=== PATIENT | female | born 1975 | race Caucasian/White ===

== ENCOUNTER 2019-07-19 00:58 | Inpatient (IN) | payer MEDICAID ==
[~2019-07-19] VITALS: Ht 152.4 cm; Wt 70.2 kg
--- NOTE | 2019-07-19 01:31 | NUR ---
report to Harish SALCIDO
--- NOTE | 2019-07-19 01:35 | NUR ---
Dr Presley aware was transported on heparin gtt, will place order to continue
[2019-07-19] MEDS ORDERED: nitroGLYCERIN-Tridil 50MG/D5W 250 ML IV PRN (01:40)
[2019-07-19] MEDS ORDERED: proCHLORperazine 10 MG/2 ml inj IV ONE (01:45)
[2019-07-19 02:39] LABS: BASOPHILS % (AUTO) 0.4 % (0-1); EOSINOPHILS # (AUTO) 0.3 X10'3 (0-0.9); EOSINOPHILS % (AUTO) 2.6 % (0-6); HEMOGLOBIN 8.8 g/dl (12.0-16.0); LYMPHOCYTES # (AUTO) 1.2 X10'3 (1.1-4.8); MEAN CORPUSCULAR HGB CONC 31.4 g/dL (33.0-36.5); MEAN CORPUSCULAR VOLUME 79.5 FL (78-98); MEAN PLATELET VOLUME 9.2 FL (7.4-10.4); MONOCYTES # (AUTO) 0.6 X10'3 (0-0.9); MONOCYTES % (AUTO) 5.2 % (2-12); NEUTROPHILS % (AUTO) 81.8 % (42-75); PLATELET COUNT 240 X10'3 (140-440); RED BLOOD COUNT 3.53 X10'6 (4.20-5.60); RED CELL DISTRIBUTION WIDTH 15.7 % (11.5-14.5); WHITE BLOOD COUNT 12.2 X10'3 (4.5-11.0)
[2019-07-19 02:48] LABS: ALANINE AMINOTRANSFERASE 20 U/L (12-78); ALBUMIN 2.2 G/DL (3.4-5.0); ALBUMIN/GLOBULIN RATIO 0.6 (1.1-1.5); ALKALINE PHOSPHATASE 76 IU/L (46-116); ANION GAP 9 (8-16); ASPARTATE AMINO TRANSFERASE 20 U/L (10-37); BILIRUBIN,TOTAL 0.3 MG/DL (0.1-1.0); BLOOD UREA NITROGEN 40 MG/DL (7-18); BUN/CREATININE RATIO 10.5 (6.6-38.0); CALCIUM 8.1 MG/DL (8.5-10.1); CHLORIDE 112 MMOL/L (99-107); GLUCOSE 202 MG/DL (70-104); SODIUM 143 MMOL/L (135-145); TOTAL CARBON DIOXIDE 21.8 MMOL/L (24-32); TOTAL PROTEIN 5.8 G/DL (6.4-8.2); eGFR 13 ML/MIN
[2019-07-19 02:51] LABS: PARTIAL THROMBOPLASTIN TIME 34 SECONDS (22-32)
[2019-07-19 02:55] LABS: MAGNESIUM 1.9 MG/DL (1.5-2.4)
[2019-07-19] MEDS ORDERED: acetaminophen 325mg tablet PO ONE (04:05)
[2019-07-19] MEDS: heparin 25,000 UNIT/250ml bag 250 ML IV SCH (04:27)
[2019-07-19] MEDS ORDERED: amLODIPine 5mg tablet PO ONE ×2 (05:25→11:30)
[2019-07-19] MEDS ORDERED: ESCI5TAB12 PO (06:13)
[2019-07-19] MEDS ORDERED: METO50TA17 PO (06:13)
[2019-07-19] MEDS ORDERED: DOCU-148 PO (06:13)
[2019-07-19] MEDS ORDERED: OXYC-580 PO (06:13)
[2019-07-19] MEDS ORDERED: INSU100V43 SQ (06:13)
[2019-07-19] MEDS ORDERED: ONDA4TAB6 PO (06:13)
[2019-07-19] MEDS ORDERED: ASPI-920 PO (06:13)
[2019-07-19] MEDS ORDERED: INSU100I31 SQ (06:13)
--- NOTE | 2019-07-19 06:15 | NUR ---
Hospitalist at bedside. MD made aware Pt does not seem to be responding well to Nitro drip as SBP not staying below 200 and approaching max dose. MD ordered to continue drip and continue to titrate.
[2019-07-19] MEDS ORDERED: dextrose ORAL solution 15 GM/59 ML bottle PO PRN (07:10)
[2019-07-19] MEDS ORDERED: azithromycin/NS 500mg/250ml 250 ML IV ONE ×2 (07:10→10:45)
[2019-07-19] MEDS ORDERED: MESSAGE TO PHARMACY PO ONE (07:10)
[2019-07-19] MEDS ORDERED: glucagon, human recombinant 1mg kit SUBCUT PRN (07:10)
[2019-07-19] MEDS ORDERED: dextrose 50%-water 50ml dispensing syringe IV PRN ×2 (07:10)
[2019-07-19] MEDS ORDERED: ipratropium/albuterol 3ml nebule NEB PRN ×2 (07:15)
[2019-07-19] MEDS ORDERED: magnesium Cl slow-release 64mg tablet PO PRN (07:15)
[2019-07-19] MEDS ORDERED: magnesium 2GM in 50ml NS 50 ML IV PRN (07:15)
[2019-07-19] MEDS ORDERED: mag hydrox/Alum hydrox/simeth 30ml oral suspension PO PRN (07:15)
[2019-07-19] MEDS ORDERED: potassium Cl 20 mEq SR tablet PO PRN ×2 (07:15)
[2019-07-19] MEDS ORDERED: magnesium 4gm in 100ml NS 100 ML IV PRN (07:15)
[2019-07-19] MEDS ORDERED: potassium CL 10mEq/100ml bag 100 ML IV PRN ×2 (07:15)
[2019-07-19 07:38] LABS: HEMOGLOBIN A1C 6.9 % (4.5-6.2)
--- NOTE | 2019-07-19 07:38 | NUR ---
GROCERY DELIVERER REQUEST THAT I REVIEW CHART FOR POSSIBLE ADMISSION TO ACCE.
[2019-07-19] MEDS ORDERED: heparin, porcine 5000 units/ml vial SQ SCH (08:00)
[2019-07-19] MEDS: CefTRIAXone/D5W-Rocephin 1gm 50 ML IV SCH (09:46)
[2019-07-19] MEDS: normal saline 1000ml 1,000 ML IV SCH (09:46)
[2019-07-19] MEDS: K and/or MAG REPLACEMENT MC SCH ×2 (09:49→20:00)
[2019-07-19] MEDS: methylPREDNISolone sod succ/PF 40mg inj. IV SCH ×2 (09:49→20:55)
--- NOTE | 2019-07-19 10:43 | NUR ---
promotional table spacer PAGER ID: [phone] MESSAGE: Med reconciliation done, please review. Pt in for CHF exacerbation, BNP>30k, on nitro trip, maxed at 30 mcg/min (max for ACCE unit), HTN not controlled, 188/101, 102. Please give another IV drip, lasix or diltizem? xSharon [phone]
[2019-07-19 11:00] VITALS: BP 187/103
--- NOTE | 2019-07-19 12:00 | NUR ---
Dr. Felton visited pt by bedside, informed RN to titrate down Nitro drip with hydralyzine IV push PRN. Heparin drip has been on for 15 hours, it will most likely be discontinued on 07/20.
--- NOTE | 2019-07-19 12:00 | NUR ---
RN withholding insulin, pt c/o NV, not eating.
[2019-07-19 15:00] VITALS: BP 167/91
[2019-07-19] MEDS: hydrALAZINE 20mg/ml inj. IV PRN ×2 (17:00→21:43)
[2019-07-19 18:00] VITALS: BP 149/78
--- NOTE | 2019-07-19 18:00 | NUR ---
Problems reprioritized. Patient report given, questions answered & plan of care reviewed with OMARI Phillips.
--- NOTE | 2019-07-19 18:00 | NUR ---
Patient in room MED 310. I have received report from Cristina SALICDO and had the opportunity to ask questions and assume patient care.
[2019-07-19] MEDS: heparin 10,000 units/1 ML INJ IV PRN (18:48)
[2019-07-19] MEDS: insulin Lispro (HumaLOG) vial - multi-dose SQ SCH (19:12)
[2019-07-19] MEDS: famotidine 10mg tablet PO SCH (20:55)
[2019-07-19] MEDS ORDERED: famotidine 20mg tablet PO SCH (21:00)
[2019-07-19] MEDS: insulin glargine (Lantus) pen - multi-dose SQ SCH (21:17)
[2019-07-19] MEDS: docusate sod 100mg capsule PO SCH (21:19)
[2019-07-19 22:00] VITALS: BP 146/75
[2019-07-20 02:00] VITALS: BP 157/81
[2019-07-20 02:18] LABS: ALBUMIN 2.1 G/DL (3.4-5.0); ANION GAP 8 (8-16); BLOOD UREA NITROGEN 43 MG/DL (7-18); BUN/CREATININE RATIO 10.5 (6.6-38.0); CHLORIDE 108 MMOL/L (99-107); CREATININE 4.09 MG/DL (0.40-0.90); GLUCOSE 175 MG/DL (70-104); MAGNESIUM 1.8 MG/DL (1.5-2.4); POTASSIUM 5.1 MMOL/L (3.5-5.1); SODIUM 137 MMOL/L (135-145); TOTAL CARBON DIOXIDE 20.7 MMOL/L (24-32); eGFR 12 ML/MIN
[2019-07-20 02:23] LABS: BASOPHILS % (AUTO) 0.4 % (0-1); EOSINOPHILS % (AUTO) 0.1 % (0-6); HEMATOCRIT 28.1 % (35.0-45.0); HEMOGLOBIN 9.1 g/dl (12.0-16.0); LYMPHOCYTES # (AUTO) 0.8 X10'3 (1.1-4.8); LYMPHOCYTES % (AUTO) 10.2 % (21-51); MEAN CORPUSCULAR HEMOGLOBIN 25.6 PG (27.0-31.0); MEAN CORPUSCULAR HGB CONC 32.3 g/dL (33.0-36.5); MEAN CORPUSCULAR VOLUME 79.2 FL (78-98); MONOCYTES # (AUTO) 0.2 X10'3 (0-0.9); NEUTROPHILS # (AUTO) 7.1 X10'3 (1.8-7.7); NEUTROPHILS % (AUTO) 87.3 % (42-75); PLATELET COUNT 196 X10'3 (140-440); RED BLOOD COUNT 3.55 X10'6 (4.20-5.60); RED CELL DISTRIBUTION WIDTH 16.3 % (11.5-14.5); WHITE BLOOD COUNT 8.2 X10'3 (4.5-11.0)
[2019-07-20] MEDS: heparin 10,000 units/1 ML INJ IV PRN (02:55)
[2019-07-20] MEDS: heparin 25,000 UNIT/250ml bag 250 ML IV SCH ×2 (02:58→07:54)
[2019-07-20 06:00] VITALS: BP 158/81
--- NOTE | 2019-07-20 06:00 | NUR ---
Problems reprioritized. Patient report given, questions answered & plan of care reviewed with Danay.
[2019-07-20] MEDS ORDERED: FLU VACC QS2019-20 36MOS UP/PF 60 MCG/0.5 ML SYRINGE IMVAC ONE (06:10)
[2019-07-20] MEDS ORDERED: pneumococcal 23-VAL P-sac vacc 25 mcg/0.5ml vial IMVAC ONE (06:10)
[2019-07-20] MEDS: lactobacillus rhamnosus 10,000 MMU CELLS/CAPSULE PO SCH (07:56)
[2019-07-20] MEDS: ESCITALOPRAM OXALATE 5 MG TABLET PO SCH (07:56)
[2019-07-20] MEDS: methylPREDNISolone sod succ/PF 40mg inj. IV SCH (07:57)
[2019-07-20] MEDS: amLODIPine 5mg tablet PO SCH (07:57)
[2019-07-20] MEDS: CefTRIAXone/D5W-Rocephin 1gm 50 ML IV SCH (07:57)
[2019-07-20] MEDS: aspirin 81mg tab.chew PO SCH (07:58)
[2019-07-20] MEDS ORDERED: metoprolol tartrate 50mg tablet PO SCH (08:00)
[2019-07-20] MEDS: K and/or MAG REPLACEMENT MC SCH ×2 (08:00→20:00)
[2019-07-20] MEDS: insulin Lispro (HumaLOG) vial - multi-dose SQ SCH ×3 (08:44→18:25)
[2019-07-20] MEDS: ondansetron/PF 4mg/2ml inj IV PRN ×2 (10:11→23:50)
[2019-07-20 11:00] VITALS: BP 161/92
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
--- NOTE | 2019-07-20 11:20 | NUR ---
DR. BRUMFIELD GIVES VERBAL ORDER TO DC HEPARIN DRIP, DC'D AT THIS TIME
[2019-07-20] MEDS: LORazepam 2 mg/ml vial IV PRN (11:31)
[2019-07-20 15:00] VITALS: BP 146/75
[2019-07-20 18:00] VITALS: BP 140/73
--- NOTE | 2019-07-20 18:00 | NUR ---
Patient in room MED 310. I have received report from NICK SALCIDO and had the opportunity to ask questions and assume patient care.
[2019-07-20] MEDS: docusate sod 100mg capsule PO SCH (21:21)
[2019-07-20] MEDS: famotidine 10mg tablet PO SCH (21:21)
[2019-07-20] MEDS: metoprolol tartrate 50mg tablet PO SCH (21:22)
[2019-07-20] MEDS: insulin glargine (Lantus) pen - multi-dose SQ SCH (21:32)
[2019-07-20 22:00] VITALS: BP 151/79
[2019-07-21 02:00] VITALS: BP 148/82
--- NOTE | 2019-07-21 06:00 | NUR ---
Problems reprioritized. Patient report given, questions answered & plan of care reviewed with Daiana SALCIDO.
[2019-07-21 06:03] LABS: BASOPHILS % (AUTO) 0.3 % (0-1); EOSINOPHILS # (AUTO) 0.1 X10'3 (0-0.9); HEMATOCRIT 27.7 % (35.0-45.0); HEMOGLOBIN 8.8 g/dl (12.0-16.0); LYMPHOCYTES # (AUTO) 2.9 X10'3 (1.1-4.8); LYMPHOCYTES % (AUTO) 25.5 % (21-51); MEAN CORPUSCULAR HEMOGLOBIN 25.3 PG (27.0-31.0); MEAN CORPUSCULAR VOLUME 79.2 FL (78-98); MEAN PLATELET VOLUME 9.3 FL (7.4-10.4); NEUTROPHILS # (AUTO) 7.3 X10'3 (1.8-7.7); NEUTROPHILS % (AUTO) 64.2 % (42-75); PLATELET COUNT 270 X10'3 (140-440); RED BLOOD COUNT 3.49 X10'6 (4.20-5.60); RED CELL DISTRIBUTION WIDTH 16.4 % (11.5-14.5); WHITE BLOOD COUNT 11.4 X10'3 (4.5-11.0)
[2019-07-21 06:09] LABS: ANION GAP 8 (8-16); BLOOD UREA NITROGEN 56 MG/DL (7-18); BUN/CREATININE RATIO 12.4 (6.6-38.0); CALCIUM 8.2 MG/DL (8.5-10.1); CHLORIDE 109 MMOL/L (99-107); CREATININE 4.53 MG/DL (0.40-0.90); GLUCOSE 76 MG/DL (70-104); MAGNESIUM 2.1 MG/DL (1.5-2.4); POTASSIUM 4.8 MMOL/L (3.5-5.1); SODIUM 138 MMOL/L (135-145); TOTAL CARBON DIOXIDE 20.8 MMOL/L (24-32); eGFR 11 ML/MIN
--- NOTE | 2019-07-21 06:30 | NUR ---
Patient in room MED 310. I have received report from Jacqueline SALCIDO and had the opportunity to ask questions and assume patient care.
[2019-07-21 07:00] VITALS: BP 148/94
[2019-07-21] MEDS: normal saline 1000ml 1,000 ML IV SCH (07:11)
[2019-07-21] MEDS: ondansetron/PF 4mg/2ml inj IV PRN ×3 (07:28→22:21)
[2019-07-21] MEDS: acetaminophen 325mg tablet PO PRN ×2 (07:28→14:34)
[2019-07-21] MEDS: CefTRIAXone/D5W-Rocephin 1gm 50 ML IV SCH (07:29)
[2019-07-21] MEDS: LORazepam 2 mg/ml vial IV PRN ×2 (07:54→14:48)
[2019-07-21] MEDS: K and/or MAG REPLACEMENT MC SCH ×2 (08:00→20:00)
[2019-07-21] MEDS: aspirin 81mg tab.chew PO SCH (08:04)
--- NOTE | 2019-07-21 08:16 | NUR ---
Pt BG checked and her BG wqas 56. She is A&O x 4. She refused glucose shot or IV glucose at this time. She requested OJ and Stated she wqould eat breakfast. She states she had not eaten much last night due to family tragedy.
[2019-07-21] MEDS: dextrose ORAL solution 15 GM/59 ML bottle PO PRN ×3 (09:12→09:45)
[2019-07-21] MEDS: ESCITALOPRAM OXALATE 5 MG TABLET PO SCH (09:17)
[2019-07-21] MEDS: predniSONE 20 mg tablet PO SCH (09:18)
[2019-07-21] MEDS: lactobacillus rhamnosus 10,000 MMU CELLS/CAPSULE PO SCH (09:18)
[2019-07-21] MEDS: amLODIPine 5mg tablet PO SCH (09:18)
[2019-07-21] MEDS: metoprolol tartrate 50mg tablet PO SCH ×2 (09:24→21:27)
[2019-07-21] MEDS: hydrALAZINE 20mg/ml inj. IV PRN (09:46)
[2019-07-21] MEDS ORDERED: FLU VACC QS2019-20 36MOS UP/PF 60 MCG/0.5 ML SYRINGE IMVAC ONE (10:00)
[2019-07-21] MEDS ORDERED: pneumococcal 23-VAL P-sac vacc 25 mcg/0.5ml vial IMVAC ONE (10:00)
--- NOTE | 2019-07-21 10:30 | NUR ---
After pt was rechecked and she did not eat but a couple bites of breakfast and drank 3/4 container OJ BG was 47 she agreed to take the glucose shots. After 3 glucose shots her BG was 103. She had refused the glucose shot earlier.
[2019-07-21 11:00] VITALS: BP 145/75
[2019-07-21] MEDS: guaiFENesin ER 600mg tablet PO SCH ×2 (12:07→21:27)
[2019-07-21] MEDS: insulin Lispro (HumaLOG) vial - multi-dose SQ SCH (13:36)
[2019-07-21 15:00] VITALS: BP 139/77
[2019-07-21 18:00] VITALS: BP 137/68
[2019-07-21] MEDS: docusate sod 100mg capsule PO SCH (21:26)
[2019-07-21] MEDS: insulin glargine (Lantus) pen - multi-dose SQ SCH (21:26)
[2019-07-21] MEDS: famotidine 10mg tablet PO SCH (21:27)
[2019-07-21 22:00] VITALS: BP 146/76
[2019-07-22 02:00] VITALS: BP 152/79
[2019-07-22 02:57] LABS: BASOPHILS % (AUTO) 0.2 % (0-1); EOSINOPHILS % (AUTO) 0 % (0-6); HEMATOCRIT 29.6 % (35.0-45.0); HEMOGLOBIN 9.2 g/dl (12.0-16.0); LYMPHOCYTES # (AUTO) 1.4 X10'3 (1.1-4.8); LYMPHOCYTES % (AUTO) 15.5 % (21-51); MEAN CORPUSCULAR HEMOGLOBIN 25.3 PG (27.0-31.0); MEAN CORPUSCULAR HGB CONC 31.2 g/dL (33.0-36.5); MEAN PLATELET VOLUME 9.3 FL (7.4-10.4); MONOCYTES # (AUTO) 0.5 X10'3 (0-0.9); MONOCYTES % (AUTO) 5.5 % (2-12); NEUTROPHILS # (AUTO) 7.2 X10'3 (1.8-7.7); NEUTROPHILS % (AUTO) 78.8 % (42-75); PLATELET COUNT 241 X10'3 (140-440); RED BLOOD COUNT 3.65 X10'6 (4.20-5.60); RED CELL DISTRIBUTION WIDTH 16.5 % (11.5-14.5); WHITE BLOOD COUNT 9.1 X10'3 (4.5-11.0)
[2019-07-22 03:08] LABS: ALBUMIN 1.7 G/DL (3.4-5.0); ANION GAP 8 (8-16); BLOOD UREA NITROGEN 61 MG/DL (7-18); BUN/CREATININE RATIO 12.9 (6.6-38.0); CALCIUM 7.6 MG/DL (8.5-10.1); CHLORIDE 108 MMOL/L (99-107); CREATININE 4.72 MG/DL (0.40-0.90); GLUCOSE 205 MG/DL (70-104); POTASSIUM 5.2 MMOL/L (3.5-5.1); SODIUM 134 MMOL/L (135-145); TOTAL CARBON DIOXIDE 18.4 MMOL/L (24-32); eGFR 10 ML/MIN
[2019-07-22 06:00] VITALS: BP 150/81
--- NOTE | 2019-07-22 06:16 | NUR ---
Problems reprioritized. Patient report given to Yulia, questions answered & plan of care reviewed with .
--- NOTE | 2019-07-22 06:23 | NUR ---
I have received report from Elaine SALCIDO and had the opportunity to ask questions and assume patient care.
[2019-07-22] MEDS: K and/or MAG REPLACEMENT MC SCH ×2 (08:00→20:00)
[2019-07-22] MEDS: ESCITALOPRAM OXALATE 5 MG TABLET PO SCH (08:21)
[2019-07-22] MEDS: lactobacillus rhamnosus 10,000 MMU CELLS/CAPSULE PO SCH (08:21)
[2019-07-22] MEDS: predniSONE 20 mg tablet PO SCH (08:21)
[2019-07-22] MEDS: guaiFENesin ER 600mg tablet PO SCH ×2 (08:21→20:49)
[2019-07-22] MEDS: amLODIPine 5mg tablet PO SCH (08:21)
[2019-07-22] MEDS: aspirin 81mg tab.chew PO SCH (08:21)
[2019-07-22] MEDS: CefTRIAXone/D5W-Rocephin 1gm 50 ML IV SCH (08:21)
[2019-07-22] MEDS: metoprolol tartrate 50mg tablet PO SCH ×2 (08:22→20:52)
[2019-07-22] MEDS: ondansetron/PF 4mg/2ml inj IV PRN (08:29)
--- NOTE | 2019-07-22 09:32 | NUR ---
PAGER ID: [phone] MESSAGE: [phone]-Roe. Pt. is having nausea and vomiting. Zofran not effective. Can we try something else? ACCE [id number]
[2019-07-22 11:00] VITALS: BP 159/88
[2019-07-22] MEDS ORDERED: regadenoson 0.4mg/5ml syringe IV PRN (11:00)
[2019-07-22] MEDS ORDERED: nitroGLYCERIN 0.4mg SUBLingual tab SL PRN (11:00)
[2019-07-22] MEDS ORDERED: aminophylline 250mg/10ml inj. IV PRN (11:00)
[2019-07-22] MEDS ORDERED: metoprolol tartrate 1mg/ml inj IV PRN (11:00)
[2019-07-22] MEDS: proMETHazine 25mg tablet PO PRN (11:07)
[2019-07-22] MEDS ORDERED: sodium bicarbonate (8.4%) inj. 100 MEQ in dextrose 5%-water 1,000 ML IV ONE (11:15)
[2019-07-22] MEDS ORDERED: sodium bicarbonate (8.4%) 1 mEq/ml syringe IV ONE (11:20)
[2019-07-22] MEDS: insulin Lispro (HumaLOG) vial - multi-dose SQ SCH ×2 (14:56→19:00)
[2019-07-22 15:00] VITALS: BP 159/79
--- NOTE | 2019-07-22 15:15 | NUR ---
ROBERT MAGALLANES HERE TO FILL OUT POLST PATIENT WISHES TO BE FULL CODE- PAGED DR. BRUMFIELD AND LET DR. LYLE KNOW WELL "Re: Roe in room 310. Can you change her code status to a FULL CODE? she wishes to be Full Code. Thank you, Cee RODRIGUEZ [phone]"
[2019-07-22] MEDS ORDERED: HYDROcodone/acetaminophen 5mg/325mg tablet PO PRN (15:30)
[2019-07-22 18:00] VITALS: BP 159/75
--- NOTE | 2019-07-22 18:00 | NUR ---
Patient in room MED 310. I have received report from Christiano SALCIDO and had the opportunity to ask questions and assume patient care.
--- NOTE | 2019-07-22 19:17 | NUR ---
PAGER ID: [phone] MESSAGE: 310 pt MOOSE patient filed out POLST today saying she wants resuscitative measures but her code status order is DNR. Please advise. Thank you - ACCE [id number]
[2019-07-22] MEDS: docusate sod 100mg capsule PO SCH (20:49)
[2019-07-22] MEDS: famotidine 10mg tablet PO SCH (20:52)
[2019-07-22 22:00] VITALS: BP 154/76
[2019-07-22] MEDS: insulin glargine (Lantus) pen - multi-dose SQ SCH (22:07)
[2019-07-23 02:00] VITALS: BP 161/80
[2019-07-23 02:41] LABS: BASOPHILS % (AUTO) 0.5 % (0-1); EOSINOPHILS % (AUTO) 0.2 % (0-6); HEMATOCRIT 27.2 % (35.0-45.0); HEMOGLOBIN 8.9 g/dl (12.0-16.0); LYMPHOCYTES # (AUTO) 1.8 X10'3 (1.1-4.8); LYMPHOCYTES % (AUTO) 21.1 % (21-51); MEAN CORPUSCULAR HEMOGLOBIN 25.4 PG (27.0-31.0); MEAN CORPUSCULAR HGB CONC 32.7 g/dL (33.0-36.5); MEAN CORPUSCULAR VOLUME 77.6 FL (78-98); MEAN PLATELET VOLUME 9.1 FL (7.4-10.4); MONOCYTES # (AUTO) 0.7 X10'3 (0-0.9); MONOCYTES % (AUTO) 8.1 % (2-12); NEUTROPHILS % (AUTO) 70.1 % (42-75); PLATELET COUNT 251 X10'3 (140-440); RED CELL DISTRIBUTION WIDTH 16.2 % (11.5-14.5); WHITE BLOOD COUNT 8.6 X10'3 (4.5-11.0)
[2019-07-23 02:52] LABS: ALBUMIN 1.6 G/DL (3.4-5.0); ANION GAP 8 (8-16); BLOOD UREA NITROGEN 68 MG/DL (7-18); BUN/CREATININE RATIO 14.8 (6.6-38.0); CALCIUM 7.1 MG/DL (8.5-10.1); CHLORIDE 104 MMOL/L (99-107); GLUCOSE 311 MG/DL (70-104); MAGNESIUM 1.9 MG/DL (1.5-2.4); POTASSIUM 5.1 MMOL/L (3.5-5.1); SODIUM 135 MMOL/L (135-145); TOTAL CARBON DIOXIDE 22.8 MMOL/L (24-32); eGFR 10 ML/MIN
[2019-07-23] MEDS: hydrALAZINE 20mg/ml inj. IV PRN (02:52)
[2019-07-23 04:45] LABS: CLARITY,URINE CLEAR (Clear); COLOR,URINE YELLOW (Yellow); GLUCOSE, URINE >=1000 mg/dl (Neg); KETONES,URINE NEGATIVE (Neg); LEUKOCYTE ESTERASE ,URINE NEGATIVE (Neg); NITRITES, URINE NEGATIVE (Neg); OCCULT BLOOD,URINE TRACE-INTACT (Neg); PROTEIN,URINE >=300 mg/dl (Neg); UROBILINOGEN,URINE 0.2 E.U/dL (0.2-1.0)
[2019-07-23 04:50] LABS: UA COLLECTION TYPE CLN CATCH MIDSTREAM
[2019-07-23 04:51] LABS: BACTERIA,URINE 1+ /HPF (Neg); MUCUS STRANDS NONE SEEN /LPF (Neg); RBC,URINE 0-2 /HPF (0-2); SQUAMOUS EPITHELIAL CELL,UR MANY /LPF (FEW); WBC,URINE 0-4 /HPF (0-4)
[2019-07-23 05:12] LABS: TOTAL PROTEIN,URINE RANDOM 689.1 MG/DL
[2019-07-23 06:00] VITALS: BP 153/78
--- NOTE | 2019-07-23 06:08 | NUR ---
Problems reprioritized. Patient report given, questions answered & plan of care reviewed with AL SALCIDO.
[2019-07-23] MEDS: metoprolol tartrate 50mg tablet PO SCH (08:00)
[2019-07-23] MEDS: proMETHazine 25mg tablet PO PRN (08:04)
[2019-07-23] MEDS: ondansetron/PF 4mg/2ml inj IV PRN (08:46)
[2019-07-23] MEDS: ESCITALOPRAM OXALATE 5 MG TABLET PO SCH (10:06)
[2019-07-23] MEDS: amLODIPine 5mg tablet PO SCH (10:06)
[2019-07-23] MEDS: predniSONE 20 mg tablet PO SCH (10:07)
[2019-07-23] MEDS: guaiFENesin ER 600mg tablet PO SCH (10:07)
[2019-07-23] MEDS: lactobacillus rhamnosus 10,000 MMU CELLS/CAPSULE PO SCH (10:07)
[2019-07-23] MEDS: aspirin 81mg tab.chew PO SCH (10:07)
[2019-07-23] MEDS: CefTRIAXone/D5W-Rocephin 1gm 50 ML IV SCH (10:08)
[2019-07-23 11:00] VITALS: BP 156/80
[2019-07-23] MEDS ORDERED: epoetin 20,000 units/ml inj SQ ONE (11:25)
[2019-07-23] MEDS: insulin Lispro (HumaLOG) vial - multi-dose SQ SCH (14:17)
[2019-07-23] MEDS ORDERED: HYDR-4070 PO (15:29)
[2019-07-23] MEDS ORDERED: NOR5T PO (15:29)
[2019-07-23] MEDS ORDERED: METO-292 PO (15:30)
--- NOTE | 2019-07-23 17:02 | NUR ---
reviewed all discharge instructions with pt and boyfriend,including prescription provided for new medication,since pts. pharmacy closed for nelly,pt given written instructions to obtain bp cuff and bring record of bp to md,info provided on all dx,including peritoneal dialysis,and all f/u appts.BK allen from [facility],site clear,dc'd with all belongings
== END 2019-07-23 15:30 | disposition home or self-care (01) | DRG 190 ==
LOC: ER 00:59 → ED HOLD 09:01 → MED 3N 10:00
PROVIDERS: ADMIT Internal Medicine; ATTEND Internal Medicine
DX: I21.4 Non-ST elevation (NSTEMI) myocardial infarction (principal); I13.2 Hypertensive heart and chronic kidney disease with heart failure and with stage 5 chronic kidney disease, or end stage renal disease; J18.9 Pneumonia, unspecified organism; E11.22 Type 2 diabetes mellitus with diabetic chronic kidney disease; I50.9 Heart failure, unspecified; N18.6 End stage renal disease; H54.8 Legal blindness, as defined in USA; J44.0 Chronic obstructive pulmonary disease with (acute) lower respiratory infection; F32.9 Major depressive disorder, single episode, unspecified; Z66 Do not resuscitate; Z79.4 Long term (current) use of insulin; Z87.01 Personal history of pneumonia (recurrent); Z90.710 Acquired absence of both cervix and uterus; Z79.899 Other long term (current) drug therapy; Z79.82 Long term (current) use of aspirin
CPT/HCPCS: 36415; 71045; 76775; 80048; 80053; 81001; 82570; 82948; 83036; 83735; 83880; 84156; 84300; 84484; 85025; 85610; 85730; 87081; 93005; 93306; 94760; 96365; 99285; G0378; J0360; J0456; J0696; J0780; J1644; J1815; J2060; J2405; J2920; J3490; J7030; J7512; Q0169; Q2037; Q4081

== ENCOUNTER 2019-08-28 17:56 | Inpatient (IN) | payer MEDICAID ==
[~2019-08-28] VITALS: Ht 152.4 cm; Wt 74.4 kg
[~2019-08-28 17:56] MED LIST: ASPI-920 PO; DOCU-148 PO; ESCI5TAB12 PO; HYDR-4070 PO; INSU100I31 SQ; INSU100V43 SQ; METO-292 PO; METO50TA17 PO; NOR5T PO; ONDA4TAB6 PO; OXYC-580 PO
--- NOTE | 2019-08-28 22:14 | NUR ---
Pt arrived on [facility] from [place], accompanied by Charlie and associate from [facility] support. States patient has been sustaining 98% on 3L NC, had some nausea relieved by zofran. Has rales bilaterally. Received 3mL butemide just before leaving [facility]. Has elevated trops but denies chest pain. Patient was able to transfer via 2PA from [facility] to bed. Patient is blind.
--- NOTE | 2019-08-28 22:18 | NUR ---
Allergy to erthyromycin and pineapple.
--- NOTE | 2019-08-28 22:20 | NUR ---
VS 172/75, 86, 97.6, 18, 97 % 3L.
[2019-08-28] MEDS ORDERED: acetaminophen 325mg tablet PO PRN ×2 (22:55)
[2019-08-28] MEDS ORDERED: glucagon, human recombinant 1mg kit SUBCUT PRN (23:15)
[2019-08-28] MEDS ORDERED: dextrose ORAL solution 15 GM/59 ML bottle PO PRN ×2 (23:15)
[2019-08-28] MEDS ORDERED: MESSAGE TO PHARMACY PO ONE (23:15)
[2019-08-28] MEDS ORDERED: dextrose 50%-water 50ml dispensing syringe IV PRN ×2 (23:15)
[2019-08-29] VITALS: BP 159/71
[2019-08-29 00:10] LABS: ALANINE AMINOTRANSFERASE 15 U/L (12-78); ALBUMIN 1.9 G/DL (3.4-5.0); ALBUMIN/GLOBULIN RATIO 0.6 (1.1-1.5); ALKALINE PHOSPHATASE 79 IU/L (46-116); ANION GAP 12 (8-16); ASPARTATE AMINO TRANSFERASE 13 U/L (10-37); BILIRUBIN,TOTAL 0.1 MG/DL (0.1-1.0); BLOOD UREA NITROGEN 63 MG/DL (7-18); BUN/CREATININE RATIO 12.2 (6.6-38.0); CALCIUM 7.8 MG/DL (8.5-10.1); CHLORIDE 108 MMOL/L (99-107); CREATININE 5.18 MG/DL (0.40-0.90); GLUCOSE 100 MG/DL (70-104); MAGNESIUM 1.9 MG/DL (1.5-2.4); PHOSPHORUS 6.8 MG/DL (2.3-4.5); POTASSIUM 5.4 MMOL/L (3.5-5.1); SODIUM 140 MMOL/L (135-145); TOTAL CARBON DIOXIDE 19.6 MMOL/L (24-32); TOTAL PROTEIN 5.3 G/DL (6.4-8.2); eGFR 9 ML/MIN
[2019-08-29 00:18] LABS: BASOPHILS # (AUTO) 0.2 X10'3 (0-0.2); EOSINOPHILS # (AUTO) 0.3 X10'3 (0-0.9); EOSINOPHILS % (AUTO) 3.1 % (0-6); HEMATOCRIT 30.2 % (35.0-45.0); HEMOGLOBIN 9.7 g/dl (12.0-16.0); LYMPHOCYTES # (AUTO) 1.5 X10'3 (1.1-4.8); LYMPHOCYTES % (AUTO) 16.7 % (21-51); MEAN CORPUSCULAR HEMOGLOBIN 25.8 PG (27.0-31.0); MEAN CORPUSCULAR HGB CONC 32.1 g/dL (33.0-36.5); MEAN CORPUSCULAR VOLUME 80.3 FL (78-98); MEAN PLATELET VOLUME 7.9 FL (7.4-10.4); MONOCYTES # (AUTO) 0.8 X10'3 (0-0.9); NEUTROPHILS % (AUTO) 69.2 % (42-75); PLATELET COUNT 397 X10'3 (140-440); RED BLOOD COUNT 3.76 X10'6 (4.20-5.60); RED CELL DISTRIBUTION WIDTH 17.4 % (11.5-14.5); WHITE BLOOD COUNT 8.7 X10'3 (4.5-11.0)
[2019-08-29 00:40] LABS: HEMOGLOBIN A1C 6.9 % (4.5-6.2)
--- NOTE | 2019-08-29 01:30 | NUR ---
Patient came in with 2 patches of Buprenoprphine 5mg each. Clarified with Lazaro Hunt. Order in place to remove on the 7th day on 09/02/19.
--- NOTE | 2019-08-29 06:24 | NUR ---
Problems reprioritized. Patient report given, questions answered & plan of care reviewed with Celia SALCIDO.
[2019-08-29 06:30] LABS: COLOR,URINE STRAW (Yellow); GLUCOSE, URINE 100 mg/dl (Neg); KETONES,URINE TRACE mg/dl (Neg); LEUKOCYTE ESTERASE ,URINE NEGATIVE (Neg); NITRITES, URINE NEGATIVE (Neg); OCCULT BLOOD,URINE NEGATIVE (Neg); PROTEIN,URINE >=300 mg/dl (Neg); UROBILINOGEN,URINE 0.2 E.U/dL (0.2-1.0)
[2019-08-29 06:33] LABS: CLARITY,URINE SLIGHTLY CLOUDY (Clear); UA COLLECTION TYPE FOLEY CATH
[2019-08-29 06:38] LABS: BACTERIA,URINE FEW /HPF (Neg); COARSE GRANULAR CAST 0-3 /LPF (NEGATIVE); HYALINE CASTS 0-3 /LPF (NEGATIVE); MUCUS STRANDS NONE SEEN /LPF (Neg); RBC,URINE NONE SEEN /HPF (0-2); SQUAMOUS EPITHELIAL CELL,UR NONE SEEN /LPF (FEW); TRANSITIONAL EPI CELLS,URINE FEW /HPF
[2019-08-29 07:07] LABS: UA EOSINOPHILS NO EOS /HPF
[2019-08-29 07:16] VITALS: BP 161/64
[2019-08-29 07:43] LABS: BASOPHILS # (AUTO) 0.1 X10'3 (0-0.2); BASOPHILS % (AUTO) 0.9 % (0-1); EOSINOPHILS # (AUTO) 0.3 X10'3 (0-0.9); EOSINOPHILS % (AUTO) 4.4 % (0-6); HEMATOCRIT 27.2 % (35.0-45.0); HEMOGLOBIN 8.6 g/dl (12.0-16.0); LYMPHOCYTES # (AUTO) 1.6 X10'3 (1.1-4.8); LYMPHOCYTES % (AUTO) 21.8 % (21-51); MEAN CORPUSCULAR HEMOGLOBIN 25.4 PG (27.0-31.0); MEAN CORPUSCULAR HGB CONC 31.6 g/dL (33.0-36.5); MEAN CORPUSCULAR VOLUME 80.3 FL (78-98); MEAN PLATELET VOLUME 7.5 FL (7.4-10.4); MONOCYTES # (AUTO) 0.7 X10'3 (0-0.9); MONOCYTES % (AUTO) 9.2 % (2-12); NEUTROPHILS # (AUTO) 4.8 X10'3 (1.8-7.7); NEUTROPHILS % (AUTO) 63.7 % (42-75); PLATELET COUNT 334 X10'3 (140-440); RED BLOOD COUNT 3.38 X10'6 (4.20-5.60); RED CELL DISTRIBUTION WIDTH 17.2 % (11.5-14.5); WHITE BLOOD COUNT 7.5 X10'3 (4.5-11.0)
[2019-08-29 08:03] LABS: ALANINE AMINOTRANSFERASE 13 U/L (12-78); ALBUMIN 1.6 G/DL (3.4-5.0); ALBUMIN/GLOBULIN RATIO 0.5 (1.1-1.5); ALKALINE PHOSPHATASE 70 IU/L (46-116); ANION GAP 13 (8-16); ASPARTATE AMINO TRANSFERASE 10 U/L (10-37); BILIRUBIN,TOTAL 0.1 MG/DL (0.1-1.0); BLOOD UREA NITROGEN 62 MG/DL (7-18); CALCIUM 7.6 MG/DL (8.5-10.1); CHLORIDE 110 MMOL/L (99-107); CREATININE 5.15 MG/DL (0.40-0.90); GLUCOSE 83 MG/DL (70-104); MAGNESIUM 1.8 MG/DL (1.5-2.4); PHOSPHORUS 6.7 MG/DL (2.3-4.5); POTASSIUM 5.2 MMOL/L (3.5-5.1); SODIUM 142 MMOL/L (135-145); TOTAL PROTEIN 4.7 G/DL (6.4-8.2); eGFR 9 ML/MIN
[2019-08-29] MEDS: ESCITALOPRAM OXALATE 5 MG TABLET PO SCH (08:26)
[2019-08-29] MEDS: metoprolol tartrate 50mg tablet PO SCH ×2 (08:26→19:27)
[2019-08-29] MEDS: aspirin 81mg tab.chew PO SCH (08:26)
[2019-08-29] MEDS: amLODIPine 5mg tablet PO SCH (08:26)
[2019-08-29] MEDS: furosemide 40mg/4ml inj IV SCH ×2 (08:27→19:24)
[2019-08-29 11:04] VITALS: BP 153/66
[2019-08-29] MEDS ORDERED: heparin 1,000unit/ml 10ml vial 10 ML IV ONE (11:19)
[2019-08-29] MEDS ORDERED: epoetin 20,000 units/ml inj IV ONE (11:20)
[2019-08-29] MEDS ORDERED: albumin (human) 25% 100ml IV 100 ML IV PRN (11:20)
[2019-08-29] MEDS ORDERED: heparin 1,000 units/ml 10ml inj IV ONE (11:20)
[2019-08-29] MEDS ORDERED: heparin 1,000 units/ml 10ml inj HE ONE ×2 (11:25)
[2019-08-29] MEDS ORDERED: LIDOcaine 1%/PF 5ML 10 MG/ML VIAL ONE (13:08)
[2019-08-29] MEDS ORDERED: heparin 1,000unit/ml 10ml vial 10 ML ONE (13:08)
[2019-08-29] MEDS ORDERED: fentaNYL/PF 50MCG/1 ML 2ML syringe ONE (13:09)
[2019-08-29] MEDS ORDERED: midazolam 2 mg/2 ml injection ONE (13:09)
[2019-08-29] MEDS ORDERED: potassium Cl 20 mEq SR tablet PO STA (14:14)
[2019-08-29] MEDS: HYDROcodone/acetaminophen 5mg/325mg tablet PO PRN ×2 (15:50→19:49)
[2019-08-29 18:00] VITALS: BP 178/71
--- NOTE | 2019-08-29 18:41 | NUR ---
Problems reprioritized. Patient report given, questions answered & plan of care reviewed with RUSH SALCIDO.
[2019-08-29] MEDS: docusate sod 100mg capsule PO SCH (20:47)
[2019-08-29] MEDS: insulin glargine (Lantus) pen - multi-dose SQ SCH (21:00)
[2019-08-30] VITALS: BP 135/73
[2019-08-30] MEDS: HYDROcodone/acetaminophen 5mg/325mg tablet PO PRN ×2 (05:09→17:21)
[2019-08-30 06:01] LABS: BASOPHILS # (AUTO) 0.1 X10'3 (0-0.2); BASOPHILS % (AUTO) 0.9 % (0-1); EOSINOPHILS # (AUTO) 0.4 X10'3 (0-0.9); EOSINOPHILS % (AUTO) 6.2 % (0-6); HEMATOCRIT 27.7 % (35.0-45.0); HEMOGLOBIN 8.7 g/dl (12.0-16.0); LYMPHOCYTES # (AUTO) 1.4 X10'3 (1.1-4.8); LYMPHOCYTES % (AUTO) 24.4 % (21-51); MEAN CORPUSCULAR HEMOGLOBIN 24.8 PG (27.0-31.0); MEAN CORPUSCULAR HGB CONC 31.3 g/dL (33.0-36.5); MONOCYTES # (AUTO) 0.9 X10'3 (0-0.9); MONOCYTES % (AUTO) 15.1 % (2-12); NEUTROPHILS # (AUTO) 3.1 X10'3 (1.8-7.7); NEUTROPHILS % (AUTO) 53.4 % (42-75); PLATELET COUNT 316 X10'3 (140-440); WHITE BLOOD COUNT 5.8 X10'3 (4.5-11.0)
[2019-08-30 06:17] LABS: ALANINE AMINOTRANSFERASE 10 U/L (12-78); ALBUMIN 1.6 G/DL (3.4-5.0); ALBUMIN/GLOBULIN RATIO 0.5 (1.1-1.5); ALKALINE PHOSPHATASE 72 IU/L (46-116); ANION GAP 8 (8-16); ASPARTATE AMINO TRANSFERASE 11 U/L (10-37); BILIRUBIN,TOTAL 0.2 MG/DL (0.1-1.0); BLOOD UREA NITROGEN 36 MG/DL (7-18); BUN/CREATININE RATIO 9.8 (6.6-38.0); CALCIUM 7.7 MG/DL (8.5-10.1); CHLORIDE 108 MMOL/L (99-107); CREATININE 3.68 MG/DL (0.40-0.90); GLUCOSE 105 MG/DL (70-104); MAGNESIUM 1.8 MG/DL (1.5-2.4); PHOSPHORUS 4.6 MG/DL (2.3-4.5); POTASSIUM 3.9 MMOL/L (3.5-5.1); SODIUM 140 MMOL/L (135-145); TOTAL CARBON DIOXIDE 23.6 MMOL/L (24-32); TOTAL PROTEIN 4.9 G/DL (6.4-8.2); eGFR 14 ML/MIN
[2019-08-30 07:10] LABS: ANISOCYTOSIS 1+; HYPOCHROMASIA 1+; MICROCYTOSIS 1+; PLATELET ESTIMATE NORMAL; TEAR DROP CELLS FEW; TOTAL CELLS COUNTED 100
[2019-08-30 08:00] VITALS: BP 183/82
[2019-08-30] MEDS ORDERED: heparin 1,000unit/ml 10ml vial 10 ML IV ONE (08:39)
[2019-08-30] MEDS ORDERED: albumin (human) 25% 100ml IV 100 ML IV PRN (08:40)
[2019-08-30] MEDS ORDERED: heparin 1,000 units/ml 10ml inj IV ONE (08:40)
[2019-08-30] MEDS ORDERED: epoetin 20,000 units/ml inj IV ONE (08:40)
[2019-08-30] MEDS ORDERED: heparin 1,000 units/ml 10ml inj HE ONE ×2 (08:45)
[2019-08-30] MEDS: amLODIPine 5mg tablet PO SCH (08:48)
[2019-08-30] MEDS: metoprolol tartrate 50mg tablet PO SCH ×2 (08:53→20:08)
[2019-08-30] MEDS: ESCITALOPRAM OXALATE 5 MG TABLET PO SCH (08:53)
[2019-08-30] MEDS: aspirin 81mg tab.chew PO SCH (08:53)
[2019-08-30 11:42] VITALS: BP 174/75
--- NOTE | 2019-08-30 12:02 | NUR ---
Student Medication Administration: For this medication-pass time frame, all medication were reviewed, dispensed, administered and documented per hospital policy by Freda Cano nursing home manager.
--- NOTE | 2019-08-30 12:03 | NUR ---
Student documentation: I have reviewed and agree with all interventions, assessments performed and documented by Alyssa Ritter, professional nursing tutor. Student Medication Administration: For this medication-pass time frame, all medication were reviewed, dispensed, administered and documented per hospital policy by Alyssa Ritter, professional nursing tutor.
--- NOTE | 2019-08-30 16:05 | NUR ---
mcginnis dc'd per order. Pt tolerated well. will monitor for urine output along side primary RN Celia.
[2019-08-30 18:00] VITALS: BP 176/72
--- NOTE | 2019-08-30 18:43 | NUR ---
Problems reprioritized. Patient report given, questions answered & plan of care reviewed with GALILEO SALCIDO.
--- NOTE | 2019-08-30 18:43 | NUR ---
Patient in room [facility] 351. I have received report from OMARI Yang and had the opportunity to ask questions and assume patient care.
[2019-08-30] MEDS: furosemide 40mg tablet PO SCH (20:07)
[2019-08-30] MEDS: docusate sod 100mg capsule PO SCH (20:08)
[2019-08-30] MEDS: insulin glargine (Lantus) pen - multi-dose SQ SCH (21:00)
[2019-08-31] MEDS: ondansetron/PF 4mg/2ml inj IV PRN ×2 (01:22→08:48)
--- NOTE | 2019-08-31 05:12 | NUR ---
TDC dressing changed at 0500
[2019-08-31 06:07] LABS: BASOPHILS # (AUTO) 0.1 X10'3 (0-0.2); EOSINOPHILS # (AUTO) 0.4 X10'3 (0-0.9); EOSINOPHILS % (AUTO) 4.9 % (0-6); HEMOGLOBIN 8.9 g/dl (12.0-16.0); LYMPHOCYTES # (AUTO) 1.2 X10'3 (1.1-4.8); MEAN CORPUSCULAR HEMOGLOBIN 24.9 PG (27.0-31.0); MEAN CORPUSCULAR HGB CONC 31.7 g/dL (33.0-36.5); MEAN CORPUSCULAR VOLUME 78.3 FL (78-98); MONOCYTES % (AUTO) 13.9 % (2-12); NEUTROPHILS # (AUTO) 4.6 X10'3 (1.8-7.7); NEUTROPHILS % (AUTO) 64.2 % (42-75); PLATELET COUNT 281 X10'3 (140-440); RED BLOOD COUNT 3.58 X10'6 (4.20-5.60); RED CELL DISTRIBUTION WIDTH 17.3 % (11.5-14.5); WHITE BLOOD COUNT 7.2 X10'3 (4.5-11.0)
--- NOTE | 2019-08-31 06:16 | NUR ---
Problems reprioritized. Patient report given, questions answered & plan of care reviewed with OMARI Schmid.
--- NOTE | 2019-08-31 06:20 | NUR ---
Patient in room [facility]RIA 351. I have received report from OMARI Griggs and had the opportunity to ask questions and assume patient care.
[2019-08-31 06:49] LABS: ALANINE AMINOTRANSFERASE 13 U/L (12-78); ALBUMIN 1.7 G/DL (3.4-5.0); ALBUMIN/GLOBULIN RATIO 0.5 (1.1-1.5); ALKALINE PHOSPHATASE 77 IU/L (46-116); ANION GAP 7 (8-16); ASPARTATE AMINO TRANSFERASE 12 U/L (10-37); BILIRUBIN,TOTAL 0.1 MG/DL (0.1-1.0); BLOOD UREA NITROGEN 27 MG/DL (7-18); BUN/CREATININE RATIO 9.8 (6.6-38.0); CALCIUM 7.6 MG/DL (8.5-10.1); CHLORIDE 107 MMOL/L (99-107); CREATININE 2.76 MG/DL (0.40-0.90); GLUCOSE 189 MG/DL (70-104); MAGNESIUM 1.7 MG/DL (1.5-2.4); PHOSPHORUS 3.3 MG/DL (2.3-4.5); SODIUM 142 MMOL/L (135-145); TOTAL CARBON DIOXIDE 27.6 MMOL/L (24-32); TOTAL PROTEIN 5.1 G/DL (6.4-8.2); eGFR 19 ML/MIN
[2019-08-31 07:50] VITALS: BP 173/73
[2019-08-31 08:10] LABS: HBSAG SCREEN Negative (Negative); HEP B CORE AB, TOT Negative (Negative)
[2019-08-31] MEDS: furosemide 40mg tablet PO SCH ×2 (08:39→20:33)
[2019-08-31] MEDS: aspirin 81mg tab.chew PO SCH (08:39)
[2019-08-31] MEDS: amLODIPine 5mg tablet PO SCH (08:39)
[2019-08-31] MEDS: metoprolol tartrate 50mg tablet PO SCH ×2 (08:39→20:34)
[2019-08-31] MEDS: ESCITALOPRAM OXALATE 5 MG TABLET PO SCH (08:39)
--- NOTE | 2019-08-31 08:45 | NUR ---
Spoke to pt. regarding her blood sugar of 163 this am, pt reports she got snacks before they checked her blood sugar last night and is not eating her bfast this morning due to nausea. Pt therefore not comfortable receiving insulin will recheck at noon and continue to monitor.
[2019-08-31] MEDS: HYDROcodone/acetaminophen 5mg/325mg tablet PO PRN (09:25)
[2019-08-31 09:40] VITALS: BP 169/74
[2019-08-31] MEDS ORDERED: proCHLORperazine 5mg tablet PO PRN (11:50)
[2019-08-31 12:00] VITALS: BP 157/66
--- NOTE | 2019-08-31 12:42 | NUR ---
DM Consult: Pt A1C <7 and not appropriate for DM ed at this time. Addendum: 08/31/19 at [address] Amended: Links added.
[2019-08-31] MEDS: proMETHazine 25mg tablet PO PRN ×2 (13:58→22:04)
--- NOTE | 2019-08-31 18:36 | NUR ---
Problems reprioritized. Patient report given, questions answered & plan of care reviewed with OMARI Bowens.
[2019-08-31 18:40] VITALS: BP 155/95
[2019-08-31] MEDS: docusate sod 100mg capsule PO SCH (20:33)
[2019-08-31] MEDS: insulin glargine (Lantus) pen - multi-dose SQ SCH (21:00)
[2019-09-01] VITALS: BP 172/72
--- NOTE | 2019-09-01 06:35 | NUR ---
Problems reprioritized. Patient report given, questions answered & plan of care reviewed with ANTHONY. Addendum: 09/01/19 at 0636 by Antonio Liu RN Amended: Links added.
[2019-09-01 07:00] VITALS: BP 174/76
[2019-09-01 07:52] LABS: BASOPHILS # (AUTO) 0.1 X10'3 (0-0.2); EOSINOPHILS # (AUTO) 0.3 X10'3 (0-0.9); EOSINOPHILS % (AUTO) 3.5 % (0-6); HEMATOCRIT 27.6 % (35.0-45.0); HEMOGLOBIN 8.8 g/dl (12.0-16.0); LYMPHOCYTES # (AUTO) 1.8 X10'3 (1.1-4.8); MEAN CORPUSCULAR HEMOGLOBIN 24.9 PG (27.0-31.0); MEAN CORPUSCULAR HGB CONC 31.8 g/dL (33.0-36.5); MEAN CORPUSCULAR VOLUME 78.1 FL (78-98); MEAN PLATELET VOLUME 7.9 FL (7.4-10.4); MONOCYTES # (AUTO) 1.1 X10'3 (0-0.9); MONOCYTES % (AUTO) 13.7 % (2-12); NEUTROPHILS # (AUTO) 5.1 X10'3 (1.8-7.7); NEUTROPHILS % (AUTO) 60.8 % (42-75); PLATELET COUNT 269 X10'3 (140-440); RED BLOOD COUNT 3.53 X10'6 (4.20-5.60); RED CELL DISTRIBUTION WIDTH 16.9 % (11.5-14.5); WHITE BLOOD COUNT 8.4 X10'3 (4.5-11.0)
[2019-09-01 08:05] LABS: ALANINE AMINOTRANSFERASE 10 U/L (12-78); ALBUMIN 1.5 G/DL (3.4-5.0); ALBUMIN/GLOBULIN RATIO 0.4 (1.1-1.5); ALKALINE PHOSPHATASE 68 IU/L (46-116); ANION GAP 5 (8-16); ASPARTATE AMINO TRANSFERASE 12 U/L (10-37); BILIRUBIN,TOTAL 0.1 MG/DL (0.1-1.0); BLOOD UREA NITROGEN 27 MG/DL (7-18); BUN/CREATININE RATIO 8.5 (6.6-38.0); CALCIUM 7.9 MG/DL (8.5-10.1); CHLORIDE 109 MMOL/L (99-107); CREATININE 3.19 MG/DL (0.40-0.90); GLUCOSE 135 MG/DL (70-104); MAGNESIUM 1.7 MG/DL (1.5-2.4); PHOSPHORUS 3.4 MG/DL (2.3-4.5); POTASSIUM 4.1 MMOL/L (3.5-5.1); SODIUM 141 MMOL/L (135-145); TOTAL PROTEIN 4.9 G/DL (6.4-8.2); eGFR 16 ML/MIN
[2019-09-01] MEDS: proMETHazine 25mg tablet PO PRN ×2 (08:23→15:44)
[2019-09-01] MEDS ORDERED: heparin 1,000unit/ml 10ml vial 10 ML IV ONE (09:00)
[2019-09-01] MEDS ORDERED: epoetin 20,000 units/ml inj IV ONE (09:00)
[2019-09-01] MEDS ORDERED: heparin 1,000 units/ml 10ml inj HE ONE ×2 (09:05)
[2019-09-01] MEDS: HYDROcodone/acetaminophen 5mg/325mg tablet PO PRN ×2 (09:15→15:44)
[2019-09-01] MEDS: amLODIPine 5mg tablet PO SCH (09:16)
[2019-09-01] MEDS: aspirin 81mg tab.chew PO SCH (09:17)
[2019-09-01] MEDS: furosemide 40mg tablet PO SCH ×2 (09:18→19:59)
[2019-09-01] MEDS: metoprolol tartrate 50mg tablet PO SCH ×2 (09:18→19:57)
[2019-09-01] MEDS: ESCITALOPRAM OXALATE 5 MG TABLET PO SCH (09:19)
[2019-09-01 12:00] VITALS: BP 169/69
--- NOTE | 2019-09-01 18:35 | NUR ---
Problems reprioritized. Patient report given, questions answered & plan of care reviewed with Kwan SALCIDO.
[2019-09-01 18:40] VITALS: BP 166/74
[2019-09-01] MEDS: docusate sod 100mg capsule PO SCH (19:57)
[2019-09-01] MEDS: insulin glargine (Lantus) pen - multi-dose SQ SCH (21:00)
[2019-09-02 04:27] LABS: BASOPHILS # (AUTO) 0.1 X10'3 (0-0.2); BASOPHILS % (AUTO) 1.2 % (0-1); EOSINOPHILS # (AUTO) 0.3 X10'3 (0-0.9); EOSINOPHILS % (AUTO) 4.5 % (0-6); HEMATOCRIT 26.5 % (35.0-45.0); HEMOGLOBIN 8.3 g/dl (12.0-16.0); LYMPHOCYTES # (AUTO) 1.5 X10'3 (1.1-4.8); LYMPHOCYTES % (AUTO) 20.6 % (21-51); MEAN CORPUSCULAR HEMOGLOBIN 24.8 PG (27.0-31.0); MEAN CORPUSCULAR HGB CONC 31.4 g/dL (33.0-36.5); MEAN CORPUSCULAR VOLUME 79.1 FL (78-98); MEAN PLATELET VOLUME 8.2 FL (7.4-10.4); MONOCYTES % (AUTO) 13.9 % (2-12); NEUTROPHILS # (AUTO) 4.4 X10'3 (1.8-7.7); NEUTROPHILS % (AUTO) 59.8 % (42-75); PLATELET COUNT 264 X10'3 (140-440); RED BLOOD COUNT 3.35 X10'6 (4.20-5.60); RED CELL DISTRIBUTION WIDTH 16.9 % (11.5-14.5); WHITE BLOOD COUNT 7.3 X10'3 (4.5-11.0)
[2019-09-02 04:43] LABS: ALANINE AMINOTRANSFERASE 12 U/L (12-78); ALBUMIN 1.5 G/DL (3.4-5.0); ALBUMIN/GLOBULIN RATIO 0.5 (1.1-1.5); ALKALINE PHOSPHATASE 69 IU/L (46-116); ANION GAP 1 (8-16); ASPARTATE AMINO TRANSFERASE 11 U/L (10-37); BILIRUBIN,TOTAL 0.1 MG/DL (0.1-1.0); BLOOD UREA NITROGEN 20 MG/DL (7-18); BUN/CREATININE RATIO 8.8 (6.6-38.0); CALCIUM 7.4 MG/DL (8.5-10.1); CHLORIDE 107 MMOL/L (99-107); CREATININE 2.26 MG/DL (0.40-0.90); GLUCOSE 163 MG/DL (70-104); MAGNESIUM 1.6 MG/DL (1.5-2.4); PHOSPHORUS 2.4 MG/DL (2.3-4.5); POTASSIUM 3.8 MMOL/L (3.5-5.1); SODIUM 140 MMOL/L (135-145); TOTAL CARBON DIOXIDE 32.3 MMOL/L (24-32); TOTAL PROTEIN 4.7 G/DL (6.4-8.2); eGFR 24 ML/MIN
--- NOTE | 2019-09-02 06:15 | NUR ---
Patient in room [facility]RIA 351. I have received report from Kwan SALCIDO and had the opportunity to ask questions and assume patient care.
--- NOTE | 2019-09-02 06:38 | NUR ---
Problems reprioritized. Patient report given, questions answered & plan of care reviewed with SETH. Addendum: 09/02/19 at 0639 by Antonio Liu RN Amended: Links added.
[2019-09-02 07:21] VITALS: BP 175/79
[2019-09-02] MEDS: furosemide 40mg tablet PO SCH ×2 (07:48→19:54)
[2019-09-02] MEDS: ESCITALOPRAM OXALATE 5 MG TABLET PO SCH (07:48)
[2019-09-02] MEDS: metoprolol tartrate 50mg tablet PO SCH ×2 (07:48→19:54)
[2019-09-02] MEDS: amLODIPine 5mg tablet PO SCH (07:48)
[2019-09-02] MEDS: aspirin 81mg tab.chew PO SCH (07:48)
[2019-09-02] MEDS: HYDROcodone/acetaminophen 5mg/325mg tablet PO PRN ×2 (09:25→20:00)
[2019-09-02 11:19] VITALS: BP 174/78
--- NOTE | 2019-09-02 14:09 | NUR ---
Dr. Mccullough informed of BP 175/79 this AM and 174/78 this afternoon, stated he would adjust meds.
--- NOTE | 2019-09-02 14:15 | NUR ---
Initial: Pt admit with CHF with hx CKD V, currently receiving HD. Pt to continue with outpatient dialysis per MD notes. Pt on a renal, CHO controlled, Na restrict diet with 1.2 L fluid restriction documented with fluctuating PO intake, initially averaging 75-100% then down to 0-25%. PO intake up to 100% at dinner last night and documented with 25-50% at breakfast this morning. D/w RN who reports pt actually with average 75% PO intake at breakfast this morning and pending lunch PO intake. Pt receiving PRN Zofran and Phenergan for nausea. LBM 08/28. Pt with routine Colace. Will continue to follow closely and monitor need for nutrition intervention. Recommendations: 1) Continue renal CHO controlled Na restrict diet with 1.2 L fluid restriction per MD 2) Consider diet liberalization if PO intake does not improve 3) Monitor need for ONS/additional protein 4) Routine bowel care; monitor need for additional 5) Wt per rx Addendum: 09/02/19 at [address] Amended: Links added.
--- NOTE | 2019-09-02 18:12 | NUR ---
Problems reprioritized. Patient report given, questions answered & plan of care reviewed with Kwan SALCIDO.
[2019-09-02] MEDS: insulin Lispro (HumaLOG) vial - multi-dose SQ SCH (18:37)
[2019-09-02 19:00] VITALS: BP 155/69
[2019-09-02] MEDS: docusate sod 100mg capsule PO SCH (19:54)
[2019-09-02] MEDS: insulin glargine (Lantus) pen - multi-dose SQ SCH (20:45)
--- NOTE | 2019-09-03 06:15 | NUR ---
Patient in room [facility]RIA 351. I have received report from Kwan SALCIDO and had the opportunity to ask questions and assume patient care.
--- NOTE | 2019-09-03 06:21 | NUR ---
Problems reprioritized. Patient report given, questions answered & plan of care reviewed with SETH. Addendum: 09/03/19 at 0621 by Antonio Liu RN Amended: Links added.
--- NOTE | 2019-09-03 06:33 | NUR ---
Patient in room [facility]RIA 351. I have received report from Karly SALCIDO and had the opportunity to ask questions and assume patient care.
[2019-09-03] MEDS: ondansetron/PF 4mg/2ml inj IV PRN (07:02)
[2019-09-03 07:20] VITALS: BP 188/94
[2019-09-03] MEDS: furosemide 40mg tablet PO SCH ×2 (07:33→19:24)
[2019-09-03] MEDS: ESCITALOPRAM OXALATE 5 MG TABLET PO SCH (07:33)
[2019-09-03] MEDS: aspirin 81mg tab.chew PO SCH (07:33)
[2019-09-03] MEDS: amLODIPine 5mg tablet PO SCH (07:34)
[2019-09-03] MEDS: metoprolol tartrate 50mg tablet PO SCH ×2 (07:34→19:25)
[2019-09-03] MEDS: HYDROcodone/acetaminophen 5mg/325mg tablet PO PRN (07:35)
[2019-09-03] MEDS ORDERED: normal saline 1000ml 250 ML IV PRN (08:00)
[2019-09-03] MEDS ORDERED: epoetin 20,000 units/ml inj IV ONE (08:00)
[2019-09-03] MEDS ORDERED: heparin 1,000 units/ml 10ml inj HE ONE ×2 (08:00)
[2019-09-03 09:22] LABS: HEMATOCRIT 30.4 % (35.0-45.0); HEMOGLOBIN 9.6 g/dl (12.0-16.0); MEAN CORPUSCULAR HEMOGLOBIN 24.7 PG (27.0-31.0); MEAN CORPUSCULAR HGB CONC 31.6 g/dL (33.0-36.5); MEAN CORPUSCULAR VOLUME 78.2 FL (78-98); MEAN PLATELET VOLUME 8.4 FL (7.4-10.4); PLATELET COUNT 334 X10'3 (140-440); RED BLOOD COUNT 3.89 X10'6 (4.20-5.60); WHITE BLOOD COUNT 7.8 X10'3 (4.5-11.0)
--- NOTE | 2019-09-03 09:26 | NUR ---
Dr. Mccullough informed of low BS this AM of 50, now 78. Also high BP this AM 188/94, now 162/76. to address BP meds. also ordered chest xray.
[2019-09-03] MEDS ORDERED: pneumococcal 23-VAL P-sac vacc 25 mcg/0.5ml vial IMVAC ONE (10:00)
[2019-09-03 11:15] VITALS: BP 150/82
[2019-09-03] MEDS: proMETHazine 25mg tablet PO PRN (11:33)
--- NOTE | 2019-09-03 12:24 | NUR ---
Problems reprioritized. Patient report given, questions answered & plan of care reviewed with Susan.
--- NOTE | 2019-09-03 12:27 | NUR ---
Patient in room [facility]RIA 351. I have received report from Tracy student nurse and had the opportunity to ask questions and assume patient care.
[2019-09-03 14:20] VITALS: BP 154/78
--- NOTE | 2019-09-03 18:30 | NUR ---
Problems reprioritized. Patient report given, questions answered & plan of care reviewed with Danita SALCIDO and Digna RN.
[2019-09-03] MEDS: docusate sod 100mg capsule PO SCH (19:25)
[2019-09-03 19:38] VITALS: BP 164/76
[2019-09-03] MEDS: insulin glargine (Lantus) pen - multi-dose SQ SCH (21:00)
[2019-09-03] MEDS ORDERED: insulin glargine (Lantus) pen - multi-dose SQ ONE (21:30)
--- NOTE | 2019-09-03 21:31 | NUR ---
Patient blood sugar on 09/02 at 2014 was at 200, after coverage of 6 units patient dropped to 50 in the am and received D50. Current BG is 213. DARRELL Hunt notified to clarify dosing of Lantus for tonight. Current GFR is 24. Received orders to give 3 units of Lantus x 1 only.
[2019-09-04] VITALS: BP_SYST 106; BP_SYST 167; BP_DIAS 45; BP_DIAS 79
[2019-09-04] MEDS: HYDROcodone/acetaminophen 5mg/325mg tablet PO PRN ×2 (00:52→10:42)
--- NOTE | 2019-09-04 06:30 | NUR ---
Problems reprioritized. Patient report given, questions answered & plan of care reviewed with Migdalia SALCIDO and Nicol SALCIDO.
--- NOTE | 2019-09-04 06:33 | NUR ---
Patient in room [facility]A 351. I have received report from iDgna SALCIDO orientee and Danita SALCIDO and had the opportunity to ask questions and assume patient care.
[2019-09-04 07:00] VITALS: BP 160/85
[2019-09-04] MEDS: furosemide 40mg tablet PO SCH (07:50)
[2019-09-04] MEDS: ESCITALOPRAM OXALATE 5 MG TABLET PO SCH (07:51)
[2019-09-04] MEDS: amLODIPine 5mg tablet PO SCH (07:51)
[2019-09-04] MEDS: metoprolol tartrate 50mg tablet PO SCH (07:51)
[2019-09-04] MEDS: aspirin 81mg tab.chew PO SCH (07:51)
[2019-09-04] MEDS: insulin Lispro (HumaLOG) vial - multi-dose SQ SCH (08:24)
[2019-09-04 11:00] VITALS: BP 153/80
--- NOTE | 2019-09-04 13:20 | NUR ---
Pt d/cd home. D/C instructions and medications reviewed with pt and significant other. Pt instructed to followup with PCP and dialysis as scheduled. PIV d/c'd cannula intact. FWW delivered and sent home with pt. Pt escorted down to lobby via w/c by student nurse with all personal belongings. Home via personal vehicle accompanied by significant other.
--- NOTE | 2019-09-04 13:33 | NUR ---
Non admin lunchtime Hai, pt refused.
== END 2019-09-04 13:20 | disposition home or self-care (01) | DRG 194 ==
LOC: SUR 3N 22:10
PROVIDERS: ADMIT Internal Medicine Critical Care Medicine
PROC: 0JH63XZ Insertion of Tunneled Vascular Access Device into Chest Subcutaneous Tissue and Fascia, Percutaneous Approach (ICD-10-PCS; principal; 2019-08-29)
PROC: 02H633Z Insertion of Infusion Device into Right Atrium, Percutaneous Approach (ICD-10-PCS; 2019-08-29)
PROC: B548ZZA Ultrasonography of Superior Vena Cava, Guidance (ICD-10-PCS; 2019-08-29)
PROC: 5A1D70Z Performance of Urinary Filtration, Intermittent, Less than 6 Hours Per Day (ICD-10-PCS; 2019-08-29)
PROC: 5A1D70Z Performance of Urinary Filtration, Intermittent, Less than 6 Hours Per Day (ICD-10-PCS; 2019-08-30)
PROC: 5A1D70Z Performance of Urinary Filtration, Intermittent, Less than 6 Hours Per Day (ICD-10-PCS; 2019-09-01)
PROC: 3E0234Z Introduction of Serum, Toxoid and Vaccine into Muscle, Percutaneous Approach (ICD-10-PCS; 2019-09-03)
PROC: 5A1D70Z Performance of Urinary Filtration, Intermittent, Less than 6 Hours Per Day (ICD-10-PCS; 2019-09-03)
DX: I13.2 Hypertensive heart and chronic kidney disease with heart failure and with stage 5 chronic kidney disease, or end stage renal disease (principal); E11.22 Type 2 diabetes mellitus with diabetic chronic kidney disease; N18.6 End stage renal disease; E83.39 Other disorders of phosphorus metabolism; E87.5 Hyperkalemia; F32.9 Major depressive disorder, single episode, unspecified; G89.29 Other chronic pain; M54.5 Low back pain; I50.9 Heart failure, unspecified; Z79.4 Long term (current) use of insulin; Z79.899 Other long term (current) drug therapy; Z23 Encounter for immunization
CPT/HCPCS: 36415; 36558; 71045; 76775; 76937; 77001; 80053; 81001; 82570; 82948; 83036; 83735; 83935; 84100; 84133; 84156; 84300; 85025; 85027; 86704; 86705; 86706; 87081; 87207; 87340; 90732; 93308; 97161; 97530; 99152; 99153; A9270; C1750; C1769; C1894; G0257; G0378; J1644; J1815; J1940; J2150; J2250; J2405; J3010; Q0169; Q4081

== ENCOUNTER 2021-09-25 11:39 | Emergency (ER) | payer MEDICARE, MEDICAID ==
[~2021-09-25] VITALS: Ht 152.4 cm; Wt 59.1 kg
[~2021-09-25 11:39] MED LIST changes: -ESCI5TAB12 PO; +ESCI5TAB17 PO; +OXYC-481 PO; -OXYC-580 PO
[2021-09-25 11:45] VITALS: BP 146/67
[2021-09-25 13:05] LABS: ALANINE AMINOTRANSFERASE 22 U/L (12-78); ALKALINE PHOSPHATASE 137 IU/L (46-116); ANION GAP 14 (8-16); ASPARTATE AMINO TRANSFERASE 10 U/L (10-37); BILIRUBIN,TOTAL 0.3 MG/DL (0.1-1.0); BLOOD UREA NITROGEN 72 MG/DL (7-18); BUN/CREATININE RATIO 8.8 (6.6-38.0); CHLORIDE 102 MMOL/L (99-107); CREATININE 8.14 MG/DL (0.40-0.90); GLUCOSE 158 MG/DL (70-104); POTASSIUM 4.9 MMOL/L (3.5-5.1); SODIUM 137 MMOL/L (135-145); TOTAL CARBON DIOXIDE 21.1 MMOL/L (24-32); TOTAL PROTEIN 6.1 G/DL (6.4-8.2); eGFR 5 ML/MIN
== END 2021-09-25 15:33 | disposition home or self-care (01) ==
LOC: ER 11:40
DX: E87.6 Hypokalemia (principal); I11.0 Hypertensive heart disease with heart failure; I50.9 Heart failure, unspecified; Z88.1 Allergy status to other antibiotic agents; Z88.8 Allergy status to other drugs, medicaments and biological substances; Z79.4 Long term (current) use of insulin; Z79.899 Other long term (current) drug therapy
CPT/HCPCS: 36415; 80053; 82948; 99283

== ENCOUNTER 2021-09-28 08:46 | Day surgery (SDC) | payer MEDICARE, MEDICAID ==
[~2021-09-28] VITALS: Ht 152.4 cm; Wt 66.0 kg
[2021-09-28] MEDS ORDERED: normal saline 1000ml 1,000 ML IV SCH (09:15)
[2021-09-28 10:06] VITALS: BP 181/78
[2021-09-28] MEDS ORDERED: HYDR-3972 PO (10:15)
[2021-09-28] MEDS ORDERED: FLUO20CA39 PO (10:15)
[2021-09-28] MEDS ORDERED: OMEP20CA15 PO (10:15)
[2021-09-28] MEDS ORDERED: CYCL5TAB4 PO (10:15)
[2021-09-28] MEDS ORDERED: TRAM1TAB7 PO (10:15)
[2021-09-28] MEDS ORDERED: CALC668T PO (10:15)
[2021-09-28] MEDS ORDERED: FURO-149 PO (10:15)
[2021-09-28] MEDS ORDERED: FOSI20TA97 PO (10:15)
[2021-09-28] MEDS ORDERED: TOPI25TA15 PO (10:15)
[2021-09-28 10:29] LABS: ALBUMIN 3.3 G/DL (3.4-5.0); ANION GAP 18 (8-16); BLOOD UREA NITROGEN 100 MG/DL (7-18); BUN/CREATININE RATIO 8.9 (6.6-38.0); CALCIUM 8.9 MG/DL (8.5-10.1); CHLORIDE 98 MMOL/L (99-107); CREATININE 11.28 MG/DL (0.40-0.90); GLUCOSE 97 MG/DL (70-104); POTASSIUM 5.9 MMOL/L (3.5-5.1); SODIUM 132 MMOL/L (135-145); TOTAL CARBON DIOXIDE 16.3 MMOL/L (24-32); eGFR 4 ML/MIN
[2021-09-28] MEDS ORDERED: heparin 1,000unit/ml 10ml vial 10 ML ONE (10:45)
[2021-09-28] MEDS ORDERED: LIDOcaine 1% 30ml preserv. free vial ONE (10:45)
[2021-09-28] MEDS ORDERED: midazolam 1 mg/ML 2ml injection ONE (10:45)
[2021-09-28] MEDS ORDERED: fentaNYL/PF 50MCG/1 ML 2ML syringe ONE (10:46)
[2021-09-28 12:10] VITALS: BP 138/68
[2021-09-28 12:26] VITALS: BP 139/75
[2021-09-28 12:41] VITALS: BP 141/68
[2021-09-28 12:56] VITALS: BP 139/68
== END 2021-09-28 13:20 | disposition home or self-care (01) ==
LOC: SSTAY O 08:46
PROVIDERS: ATTEND Radiology Diagnostic Radiology
DX: E11.22 Type 2 diabetes mellitus with diabetic chronic kidney disease (principal); I12.0 Hypertensive chronic kidney disease with stage 5 chronic kidney disease or end stage renal disease; N18.6 End stage renal disease; I25.10 Atherosclerotic heart disease of native coronary artery without angina pectoris; E78.00 Pure hypercholesterolemia, unspecified; Z88.1 Allergy status to other antibiotic agents; Z88.8 Allergy status to other drugs, medicaments and biological substances; Z91.018 Allergy to other foods; Z79.899 Other long term (current) drug therapy; Z79.82 Long term (current) use of aspirin; Z79.4 Long term (current) use of insulin
CPT/HCPCS: 36415; 36558; 76937; 77001; 80048; 82948; 99152; 99153; C1750; C1769; C1894; J1644; J2250; J3010; J3490; A9270

== ENCOUNTER 2021-10-01 18:28 | Emergency (ER) | payer MEDICARE, MEDICAID ==
[~2021-10-01] VITALS: Ht 152.4 cm; Wt 65.0 kg
[~2021-10-01 18:28] MED LIST changes: +CALC668T PO; +CYCL5TAB4 PO; -ESCI5TAB17 PO; +FLUO20CA39 PO; +FOSI20TA97 PO; +FURO-149 PO; +HYDR-3972 PO; -METO-292 PO; -NOR5T PO; +OMEP20CA15 PO; -OXYC-481 PO; +TOPI25TA15 PO; +TRAM1TAB7 PO
[2021-10-01] MEDS ORDERED: iohexol 350MG/ML 100ml bottle IV ONE (18:51)
--- NOTE | 2021-10-01 18:58 | NUR ---
x-ray at bs
--- NOTE | 2021-10-01 18:59 | NUR ---
contacted lolis shi from [facility] regarding pt condition. RN reports that patient session started [id number]. at approx 1715 pt reported new onset chest pain and felt like " something was squeezing in her chest." pt had new port placed last week and arterial line/venous were checked prior to tx and patent. when nurse came to assess pt he noticed air in the arterial line and line was unable to suction/began collapsing into itself. dialysis was unable to return pt's blood and machine was not working properly. prior to tx pt reported pain near port access. pt has hx of diabetes, panic attacks and anxiety. vswnl during treatment and BGL 130
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
[2021-10-01 19:12] LABS: BASOPHILS # (AUTO) 0.1 X10'3 (0-0.2); BASOPHILS % (AUTO) 0.6 % (0-1); EOSINOPHILS # (AUTO) 0.6 X10'3 (0-0.9); EOSINOPHILS % (AUTO) 3.9 % (0-6); HEMATOCRIT 32.6 % (35.0-45.0); HEMOGLOBIN 10.4 g/dl (12.0-16.0); LYMPHOCYTES # (AUTO) 0.9 X10'3 (1.1-4.8); LYMPHOCYTES % (AUTO) 6.5 % (21-51); MEAN CORPUSCULAR HEMOGLOBIN 28.1 PG (27.0-31.0); MEAN CORPUSCULAR HGB CONC 31.9 g/dL (33.0-36.5); MEAN PLATELET VOLUME 8.1 FL (7.4-10.4); MONOCYTES # (AUTO) 1.1 X10'3 (0-0.9); MONOCYTES % (AUTO) 7.3 % (2-12); NEUTROPHILS # (AUTO) 11.8 X10'3 (1.8-7.7); NEUTROPHILS % (AUTO) 81.7 % (42-75); PLATELET COUNT 363 X10'3 (140-440); RED CELL DISTRIBUTION WIDTH 17.5 % (11.5-14.5); WHITE BLOOD COUNT 14.5 X10'3 (4.5-11.0)
--- NOTE | 2021-10-01 19:15 | NUR ---
spouse at bs
[2021-10-01 19:28] LABS: ALANINE AMINOTRANSFERASE 20 U/L (12-78); ALBUMIN 3.1 G/DL (3.4-5.0); ALBUMIN/GLOBULIN RATIO 0.7 (1.1-1.5); ALKALINE PHOSPHATASE 180 IU/L (46-116); ANION GAP 7 (8-16); ASPARTATE AMINO TRANSFERASE 18 U/L (10-37); BILIRUBIN,TOTAL 0.4 MG/DL (0.1-1.0); BLOOD UREA NITROGEN 18 MG/DL (7-18); BUN/CREATININE RATIO 4.5 (6.6-38.0); CALCIUM 8.9 MG/DL (8.5-10.1); CHLORIDE 98 MMOL/L (99-107); CREATININE 3.98 MG/DL (0.40-0.90); GLUCOSE 176 MG/DL (70-104); POTASSIUM 3.4 MMOL/L (3.5-5.1); SODIUM 131 MMOL/L (135-145); TOTAL CARBON DIOXIDE 26.4 MMOL/L (24-32); TOTAL PROTEIN 7.4 G/DL (6.4-8.2); eGFR 12 ML/MIN
--- NOTE | 2021-10-01 19:30 | NUR ---
pt to ct
[2021-10-01 20:07] VITALS: BP 192/91
--- NOTE | 2021-10-01 21:11 | NUR ---
report off to OMARI Guillen
== END 2021-10-01 21:15 | disposition home or self-care (01) ==
LOC: ER 18:29
DX: R06.02 Shortness of breath (principal); R07.89 Other chest pain; I11.0 Hypertensive heart disease with heart failure; I50.9 Heart failure, unspecified; Z88.1 Allergy status to other antibiotic agents; Z91.018 Allergy to other foods; Z88.8 Allergy status to other drugs, medicaments and biological substances; Z79.82 Long term (current) use of aspirin; Z79.4 Long term (current) use of insulin; Z79.899 Other long term (current) drug therapy
CPT/HCPCS: 99285; Q9967; 36415; 71045; 71275; 80053; 83880; 84484; 85025

== ENCOUNTER 2021-10-01 23:15 | Inpatient (IN) | payer MEDICARE, MEDICAID ==
[~2021-10-01] VITALS: Ht 152.4 cm; Wt 64.0 kg
[2021-10-02 00:36] LABS: ALBUMIN 3.5 G/DL (3.4-5.0); ANION GAP 8 (8-16); BLOOD UREA NITROGEN 21 MG/DL (7-18); BUN/CREATININE RATIO 4.4 (6.6-38.0); CALCIUM 9.7 MG/DL (8.5-10.1); CHLORIDE 100 MMOL/L (99-107); CREATININE 4.72 MG/DL (0.40-0.90); GLUCOSE 149 MG/DL (70-104); SODIUM 135 MMOL/L (135-145); TOTAL CARBON DIOXIDE 26.9 MMOL/L (24-32); eGFR 10 ML/MIN
[2021-10-02 00:37] LABS: BASOPHILS # (AUTO) 0.1 X10'3 (0-0.2); BASOPHILS % (AUTO) 0.6 % (0-1); EOSINOPHILS # (AUTO) 0.6 X10'3 (0-0.9); EOSINOPHILS % (AUTO) 4.3 % (0-6); HEMOGLOBIN 10.7 g/dl (12.0-16.0); LYMPHOCYTES # (AUTO) 1.3 X10'3 (1.1-4.8); MEAN CORPUSCULAR HEMOGLOBIN 28.4 PG (27.0-31.0); MEAN CORPUSCULAR HGB CONC 32.4 g/dL (33.0-36.5); MEAN CORPUSCULAR VOLUME 87.6 FL (78-98); MEAN PLATELET VOLUME 8.1 FL (7.4-10.4); MONOCYTES # (AUTO) 1.1 X10'3 (0-0.9); MONOCYTES % (AUTO) 7.2 % (2-12); NEUTROPHILS # (AUTO) 11.6 X10'3 (1.8-7.7); NEUTROPHILS % (AUTO) 78.9 % (42-75); PLATELET COUNT 387 X10'3 (140-440); RED BLOOD COUNT 3.77 X10'6 (4.20-5.60); RED CELL DISTRIBUTION WIDTH 17.7 % (11.5-14.5); WHITE BLOOD COUNT 14.7 X10'3 (4.5-11.0)
[2021-10-02] MEDS ORDERED: heparin 10,000 units/1 ML INJ IV ONE (01:55)
[2021-10-02] MEDS ORDERED: heparin 10,000 units/1 ML INJ IV PRN (01:55)
--- NOTE | 2021-10-02 02:25 | NUR ---
Pt measured blood sugar at 230 with her personal monitor. Pt self administered 2 units of Novolog and 10 units of Lantus.
--- NOTE | 2021-10-02 03:41 | NUR ---
patient aware of clott, dvt to right chest wall. swelling increased to right chest wall around dialysis site and RUE. initiated heparin.
[2021-10-02] MEDS ORDERED: mag hydrox/Alum hydrox/simeth 30ml oral suspension PO PRN (03:50)
[2021-10-02] MEDS ORDERED: magnesium hydroxide 30ml (MOM) UD suspension PO PRN (03:50)
[2021-10-02] MEDS ORDERED: acetaminophen 325mg tablet PO PRN (03:50)
[2021-10-02] MEDS: heparin 25,000 UNIT/250ml bag 250 ML IV SCH (03:51)
[2021-10-02] MEDS ORDERED: hydrALAZINE 25 MG tablet PO PRN (06:05)
--- NOTE | 2021-10-02 06:51 | NUR ---
Called report to OMARI Cervantes in PCU; RN not available at this time.
[2021-10-02 07:45] VITALS: BP 183/77
[2021-10-02 07:59] LABS: APTT > 139 SECONDS (22-32)
[2021-10-02] MEDS: docusate sod 100mg capsule PO SCH ×3 (08:00→20:11)
[2021-10-02] MEDS: cyclobenzaprine 10mg tablet PO SCH ×2 (08:44→19:58)
[2021-10-02] MEDS: metoprolol tartrate 50mg tablet PO SCH ×2 (08:45→19:59)
[2021-10-02] MEDS: topiramate 25mg tablet PO SCH (08:45)
[2021-10-02] MEDS: lisinopril 20mg tablet PO SCH (08:45)
[2021-10-02] MEDS: FLUoxetine 20mg capsule PO SCH (08:45)
[2021-10-02] MEDS: pantoprazole 40mg Tablet.DR PO SCH (08:46)
[2021-10-02] MEDS: furosemide 40mg tablet PO SCH ×2 (08:46→19:58)
[2021-10-02] MEDS: calcium acetate 667mg (PhosLO) capsule PO SCH ×3 (08:57→18:00)
[2021-10-02] MEDS: morphine 2 MG/ML inj. syringe IV PRN ×3 (09:06→20:09)
[2021-10-02] MEDS: ondansetron/PF 4mg/2ml inj IV PRN (09:39)
[2021-10-02] MEDS ORDERED: PERFLUTREN PROTEIN-A MICROSPHR (Optison) 0.22 MG/ML 3ML VIAL IV ONE (10:50)
[2021-10-02 11:00] VITALS: BP 169/76
[2021-10-02 12:20] LABS: POTASSIUM 4.1 MMOL/L (3.3-5.1)
[2021-10-02] MEDS: aspirin 81mg, enteric-coated 1 TAB TABLET.DR PO SCH (14:02)
[2021-10-02 15:00] VITALS: BP 151/50
[2021-10-02 18:30] VITALS: BP 184/73
[2021-10-02 20:23] LABS: ALANINE AMINOTRANSFERASE 18 U/L (12-78); ALBUMIN 2.9 G/DL (3.4-5.0); ALBUMIN/GLOBULIN RATIO 0.7 (1.1-1.5); ALKALINE PHOSPHATASE 163 IU/L (46-116); ANION GAP 11 (8-16); ASPARTATE AMINO TRANSFERASE 19 U/L (10-37); BILIRUBIN,TOTAL 0.3 MG/DL (0.1-1.0); BLOOD UREA NITROGEN 32 MG/DL (7-18); BUN/CREATININE RATIO 5.2 (6.6-38.0); CALCIUM 8.8 MG/DL (8.5-10.1); CHLORIDE 102 MMOL/L (99-107); CREATININE 6.13 MG/DL (0.40-0.90); GLUCOSE 174 MG/DL (70-104); POTASSIUM 4.4 MMOL/L (3.5-5.1); SODIUM 136 MMOL/L (135-145); TOTAL CARBON DIOXIDE 23.5 MMOL/L (24-32); eGFR 7 ML/MIN
[2021-10-02 22:00] VITALS: BP 176/79
[2021-10-02] MEDS: diphenhydrAMINE 25mg capsule PO PRN (23:24)
[2021-10-03 02:00] VITALS: BP 153/96
[2021-10-03] MEDS: heparin 25,000 UNIT/250ml bag 250 ML IV SCH ×2 (03:14→21:21)
[2021-10-03] MEDS: morphine 2 MG/ML inj. syringe IV PRN ×3 (03:28→20:21)
[2021-10-03] MEDS ORDERED: albumin (human) 25% 100ml IV 100 ML IV PRN (05:55)
[2021-10-03] MEDS ORDERED: heparin 1,000 units/ml 10ml inj IV ONE (05:55)
[2021-10-03] MEDS ORDERED: EPOETIN ALFA-EPBX 20,000 UNIT/ML 1 ML MDV IV ONE (05:55)
[2021-10-03] MEDS ORDERED: heparin 1,000unit/ml 10ml vial 10 ML IV ONE (05:55)
[2021-10-03 06:00] VITALS: BP 179/57
[2021-10-03] MEDS ORDERED: heparin 1,000 units/ml 10ml inj HE ONE ×2 (06:00)
--- NOTE | 2021-10-03 06:55 | NUR ---
Problems reprioritized. Patient report given, questions answered & plan of care reviewed with Angie. Addendum: 10/03/21 at 0655 by Antonio Liu RN Amended: Links added.
[2021-10-03] MEDS: furosemide 40mg tablet PO SCH ×2 (08:18→20:19)
[2021-10-03] MEDS: pantoprazole 40mg Tablet.DR PO SCH (08:18)
[2021-10-03] MEDS: cyclobenzaprine 10mg tablet PO SCH ×2 (08:18→20:19)
[2021-10-03] MEDS: aspirin 81mg, enteric-coated 1 TAB TABLET.DR PO SCH (08:18)
[2021-10-03] MEDS: FLUoxetine 20mg capsule PO SCH (08:18)
[2021-10-03] MEDS: topiramate 25mg tablet PO SCH (08:19)
[2021-10-03] MEDS: docusate sod 100mg capsule PO SCH ×3 (08:19→20:19)
[2021-10-03] MEDS: calcium acetate 667mg (PhosLO) capsule PO SCH ×3 (08:20→18:00)
[2021-10-03] MEDS: lisinopril 20mg tablet PO SCH (08:20)
[2021-10-03] MEDS: metoprolol tartrate 50mg tablet PO SCH ×2 (08:20→20:19)
[2021-10-03] MEDS: diphenhydrAMINE 25mg capsule PO PRN (08:35)
[2021-10-03 09:08] LABS: BASOPHILS # (AUTO) 0.1 X10'3 (0-0.2); BASOPHILS % (AUTO) 0.5 % (0-1); EOSINOPHILS # (AUTO) 0.6 X10'3 (0-0.9); HEMATOCRIT 29.7 % (35.0-45.0); HEMOGLOBIN 9.5 g/dl (12.0-16.0); LYMPHOCYTES # (AUTO) 1.6 X10'3 (1.1-4.8); LYMPHOCYTES % (AUTO) 10.9 % (21-51); MEAN CORPUSCULAR HEMOGLOBIN 28.1 PG (27.0-31.0); MEAN CORPUSCULAR HGB CONC 31.8 g/dL (33.0-36.5); MEAN CORPUSCULAR VOLUME 88.3 FL (78-98); MEAN PLATELET VOLUME 8.1 FL (7.4-10.4); MONOCYTES # (AUTO) 1.4 X10'3 (0-0.9); MONOCYTES % (AUTO) 9.4 % (2-12); NEUTROPHILS % (AUTO) 75.2 % (42-75); PLATELET COUNT 330 X10'3 (140-440); RED BLOOD COUNT 3.37 X10'6 (4.20-5.60); RED CELL DISTRIBUTION WIDTH 17.8 % (11.5-14.5); WHITE BLOOD COUNT 14.6 X10'3 (4.5-11.0)
[2021-10-03 09:29] LABS: ALANINE AMINOTRANSFERASE 17 U/L (12-78); ALBUMIN 2.9 G/DL (3.4-5.0); ALBUMIN/GLOBULIN RATIO 0.7 (1.1-1.5); ALKALINE PHOSPHATASE 162 IU/L (46-116); ANION GAP 11 (8-16); ASPARTATE AMINO TRANSFERASE 21 U/L (10-37); BILIRUBIN,TOTAL 0.4 MG/DL (0.1-1.0); BLOOD UREA NITROGEN 38 MG/DL (7-18); BUN/CREATININE RATIO 5.6 (6.6-38.0); CALCIUM 9.1 MG/DL (8.5-10.1); CHLORIDE 100 MMOL/L (99-107); CHOLESTEROL 125 MG/DL (0-200); CREATININE 6.82 MG/DL (0.40-0.90); GLUCOSE 114 MG/DL (70-104); LDL CHOLESTEROL 48 MG/DL (50-100); POTASSIUM 4.2 MMOL/L (3.5-5.1); SODIUM 135 MMOL/L (135-145); TOTAL CARBON DIOXIDE 24.4 MMOL/L (24-32); TRIGLYCERIDES 105 MG/DL (20-135); eGFR 7 ML/MIN
[2021-10-03 09:32] LABS: CHOL/HDL RATIO 2.5 (0.00-4.99); HDL CHOLESTEROL 50 MG/DL (35-60)
[2021-10-03] MEDS ORDERED: MESSAGE TO PHARMACY PO ONE (10:00)
[2021-10-03] MEDS ORDERED: DEXTROSE 15 GM of carb/4 tabs (each vial/BOTTLE has 4 tablets) PO PRN ×2 (10:00)
[2021-10-03] MEDS ORDERED: glucagon, human recombinant 1mg kit SUBCUT PRN (10:00)
[2021-10-03] MEDS ORDERED: dextrose 50%-water 50ml dispensing syringe IV PRN ×2 (10:00)
[2021-10-03] MEDS ORDERED: insulin Lispro (HumaLOG) vial - multi-dose SQ SCH (10:00)
[2021-10-03 11:00] VITALS: BP 187/79
[2021-10-03] MEDS ORDERED: LIDOcaine 1% (10mg/ml) 2ml vial SQ ONE (12:05)
[2021-10-03] MEDS ORDERED: diphenhydrAMINE 50 mg/ml inj IM ONE (12:10)
[2021-10-03] MEDS: ondansetron/PF 4mg/2ml inj IV PRN (13:12)
[2021-10-03] MEDS ORDERED: proCHLORperazine 10 MG/2 ml inj IV PRN (14:00)
[2021-10-03] MEDS ORDERED: hydrALAZINE 20mg/ml inj. IV STA (14:15)
[2021-10-03 15:00] VITALS: BP 144/51
[2021-10-03 20:19] VITALS: BP 164/60
[2021-10-03] MEDS ORDERED: insulin glargine (Lantus) pen - multi-dose SQ SCH (21:00)
[2021-10-04 02:00] VITALS: BP 198/76
[2021-10-04 02:30] VITALS: BP 149/65
[2021-10-04] MEDS: morphine 2 MG/ML inj. syringe IV PRN ×2 (02:57→08:32)
[2021-10-04 06:00] VITALS: BP 140/67
[2021-10-04 06:13] LABS: BASOPHILS # (AUTO) 0.1 X10'3 (0-0.2); BASOPHILS % (AUTO) 0.6 % (0-1); EOSINOPHILS # (AUTO) 0.4 X10'3 (0-0.9); EOSINOPHILS % (AUTO) 3.1 % (0-6); HEMATOCRIT 30.4 % (35.0-45.0); HEMOGLOBIN 9.5 g/dl (12.0-16.0); LYMPHOCYTES # (AUTO) 1.4 X10'3 (1.1-4.8); MEAN CORPUSCULAR HEMOGLOBIN 27.6 PG (27.0-31.0); MEAN CORPUSCULAR HGB CONC 31.3 g/dL (33.0-36.5); MEAN CORPUSCULAR VOLUME 88.4 FL (78-98); MEAN PLATELET VOLUME 8.2 FL (7.4-10.4); MONOCYTES # (AUTO) 1.4 X10'3 (0-0.9); NEUTROPHILS # (AUTO) 10.7 X10'3 (1.8-7.7); NEUTROPHILS % (AUTO) 76.3 % (42-75); PLATELET COUNT 333 X10'3 (140-440); RED BLOOD COUNT 3.44 X10'6 (4.20-5.60); RED CELL DISTRIBUTION WIDTH 18.4 % (11.5-14.5)
--- NOTE | 2021-10-04 06:25 | NUR ---
Problems reprioritized. Patient report given, questions answered & plan of care reviewed with OMARI BECK.
[2021-10-04 06:37] LABS: ALANINE AMINOTRANSFERASE 22 U/L (12-78); ALBUMIN 2.7 G/DL (3.4-5.0); ALBUMIN/GLOBULIN RATIO 0.7 (1.1-1.5); ALKALINE PHOSPHATASE 173 IU/L (46-116); ANION GAP 12 (8-16); ASPARTATE AMINO TRANSFERASE 20 U/L (10-37); BILIRUBIN,TOTAL 0.4 MG/DL (0.1-1.0); BLOOD UREA NITROGEN 30 MG/DL (7-18); BUN/CREATININE RATIO 5.7 (6.6-38.0); CALCIUM 8.6 MG/DL (8.5-10.1); CHLORIDE 99 MMOL/L (99-107); GLUCOSE 159 MG/DL (70-104); POTASSIUM 4.6 MMOL/L (3.5-5.1); SODIUM 136 MMOL/L (135-145); TOTAL CARBON DIOXIDE 24.7 MMOL/L (24-32); TOTAL PROTEIN 6.8 G/DL (6.4-8.2); eGFR 9 ML/MIN
[2021-10-04] MEDS: docusate sod 100mg capsule PO SCH (08:27)
[2021-10-04] MEDS: lisinopril 20mg tablet PO SCH (08:28)
[2021-10-04] MEDS: furosemide 40mg tablet PO SCH (08:28)
[2021-10-04] MEDS: calcium acetate 667mg (PhosLO) capsule PO SCH (08:28)
[2021-10-04] MEDS: FLUoxetine 20mg capsule PO SCH (08:29)
[2021-10-04] MEDS: pantoprazole 40mg Tablet.DR PO SCH (08:29)
[2021-10-04] MEDS: diphenhydrAMINE 25mg capsule PO PRN (08:29)
[2021-10-04] MEDS: aspirin 81mg, enteric-coated 1 TAB TABLET.DR PO SCH (08:29)
[2021-10-04 08:34] VITALS: BP_SYST 126
[2021-10-04] MEDS: cyclobenzaprine 10mg tablet PO SCH (08:34)
[2021-10-04] MEDS: metoprolol tartrate 50mg tablet PO SCH (08:34)
[2021-10-04] MEDS: topiramate 25mg tablet PO SCH (08:35)
[2021-10-04] MEDS ORDERED: apixaban 5mg tablet PO ONE (09:55)
[2021-10-04] MEDS ORDERED: APIX5TAB3 PO (11:12)
== END 2021-10-04 12:51 | disposition home or self-care (01) | DRG 299 ==
LOC: ER 23:16 → ED HOLD 10-02 03:58 → PCU 3S 10-02 07:54
PROVIDERS: ADMIT Internal Medicine; ATTEND Family Medicine
PROC: 5A1D70Z Performance of Urinary Filtration, Intermittent, Less than 6 Hours Per Day (ICD-10-PCS; principal; 2021-10-03)
DX: I82.C11 Acute embolism and thrombosis of right internal jugular vein (principal); N18.6 End stage renal disease; I13.2 Hypertensive heart and chronic kidney disease with heart failure and with stage 5 chronic kidney disease, or end stage renal disease; D63.1 Anemia in chronic kidney disease; D72.823 Leukemoid reaction; E11.22 Type 2 diabetes mellitus with diabetic chronic kidney disease; H54.8 Legal blindness, as defined in USA; I25.10 Atherosclerotic heart disease of native coronary artery without angina pectoris; I50.9 Heart failure, unspecified; K86.89 Other specified diseases of pancreas; Z79.01 Long term (current) use of anticoagulants; Z99.2 Dependence on renal dialysis; Z79.02 Long term (current) use of antithrombotics/antiplatelets; Z79.4 Long term (current) use of insulin; Z79.899 Other long term (current) drug therapy; Z90.710 Acquired absence of both cervix and uterus; Z95.5 Presence of coronary angioplasty implant and graft; Z88.8 Allergy status to other drugs, medicaments and biological substances; Z79.82 Long term (current) use of aspirin
CPT/HCPCS: 36415; 71045; 71275; 80048; 80053; 80061; 82948; 83036; 83880; 84484; 85025; 85610; 85730; 93005; 93306; 93971; 99291; 99292; G0257; G0378; J0780; J1200; J1644; J1815; J2270; J2405; J3490; Q0163

== ENCOUNTER 2021-10-09 20:45 | Inpatient (IN) | payer MEDICARE, MEDICAID ==
[~2021-10-09] VITALS: Ht 152.4 cm; Wt 61.8 kg
[~2021-10-09 20:45] MED LIST changes: +APIX5TAB3 PO
[2021-10-09 21:40] LABS: BASOPHILS # (AUTO) 0.1 X10'3 (0-0.2); BASOPHILS % (AUTO) 0.5 % (0-1); EOSINOPHILS # (AUTO) 0.3 X10'3 (0-0.9); HEMATOCRIT 28.2 % (35.0-45.0); HEMOGLOBIN 9.3 g/dl (12.0-16.0); LYMPHOCYTES # (AUTO) 0.7 X10'3 (1.1-4.8); LYMPHOCYTES % (AUTO) 4.4 % (21-51); MEAN CORPUSCULAR HEMOGLOBIN 28.7 PG (27.0-31.0); MEAN CORPUSCULAR HGB CONC 32.9 g/dL (33.0-36.5); MEAN CORPUSCULAR VOLUME 87.3 FL (78-98); MEAN PLATELET VOLUME 8.2 FL (7.4-10.4); MONOCYTES # (AUTO) 1.4 X10'3 (0-0.9); MONOCYTES % (AUTO) 9.3 % (2-12); NEUTROPHILS # (AUTO) 12.8 X10'3 (1.8-7.7); NEUTROPHILS % (AUTO) 83.8 % (42-75); PLATELET COUNT 485 X10'3 (140-440); RED BLOOD COUNT 3.23 X10'6 (4.20-5.60); RED CELL DISTRIBUTION WIDTH 17.3 % (11.5-14.5); WHITE BLOOD COUNT 15.3 X10'3 (4.5-11.0)
[2021-10-09 21:51] LABS: ALANINE AMINOTRANSFERASE 17 U/L (12-78); ALBUMIN 3.1 G/DL (3.4-5.0); ALBUMIN/GLOBULIN RATIO 0.6 (1.1-1.5); ALKALINE PHOSPHATASE 219 IU/L (46-116); ANION GAP 13 (8-16); ASPARTATE AMINO TRANSFERASE 11 U/L (10-37); BILIRUBIN,TOTAL 0.6 MG/DL (0.1-1.0); BLOOD UREA NITROGEN 31 MG/DL (7-18); BUN/CREATININE RATIO 5.5 (6.6-38.0); CALCIUM 9.2 MG/DL (8.5-10.1); CHLORIDE 99 MMOL/L (99-107); CREATININE 5.65 MG/DL (0.40-0.90); GLUCOSE 172 MG/DL (70-104); POTASSIUM 4.4 MMOL/L (3.5-5.1); SODIUM 135 MMOL/L (135-145); TOTAL CARBON DIOXIDE 23.5 MMOL/L (24-32); TOTAL PROTEIN 7.9 G/DL (6.4-8.2); eGFR 8 ML/MIN
[2021-10-09] MEDS ORDERED: morphine 4 MG/ML inj SYRINge IV ONE (23:00)
[2021-10-09] MEDS ORDERED: ondansetron/PF 4mg/2ml inj IV ONE (23:00)
[2021-10-09 23:08] LABS: APTT 42 SECONDS (22-32)
[2021-10-10] MEDS ORDERED: heparin 10,000 units/1 ML INJ IV PRN (01:20)
[2021-10-10] MEDS ORDERED: heparin 10,000 units/1 ML INJ IV ONE (01:20)
[2021-10-10] MEDS: heparin 25,000 UNIT/250ml bag 250 ML IV SCH (01:49)
[2021-10-10] MEDS ORDERED: ondansetron/PF 4mg/2ml inj IV ONE (02:30)
[2021-10-10] MEDS ORDERED: morphine 4 MG/ML inj SYRINge IV ONE (02:30)
[2021-10-10] MEDS ORDERED: diphenhydrAMINE 25mg capsule PO PRN (03:15)
[2021-10-10] MEDS ORDERED: magnesium hydroxide 30ml (MOM) UD suspension PO PRN (03:15)
[2021-10-10] MEDS ORDERED: acetaminophen 325mg tablet PO PRN ×2 (03:15)
[2021-10-10] MEDS ORDERED: morphine 2 MG/ML inj. syringe IV PRN (03:15)
[2021-10-10] MEDS ORDERED: mag hydrox/Alum hydrox/simeth 30ml oral suspension PO PRN (03:15)
[2021-10-10] MEDS ORDERED: acetaminophen 650mg rectal suppository RC PRN (03:15)
[2021-10-10] MEDS ORDERED: bisacodyl 10mg suppository rectal RC PRN (03:15)
[2021-10-10] MEDS ORDERED: ondansetron 4mg rapidly disintigrating tab PO PRN (03:15)
[2021-10-10] MEDS ORDERED: MESSAGE TO PHARMACY PO ONE (03:20)
[2021-10-10] MEDS ORDERED: glucagon, human recombinant 1mg kit SUBCUT PRN (03:20)
[2021-10-10] MEDS ORDERED: dextrose 50%-water 50ml dispensing syringe IV PRN (03:20)
[2021-10-10] MEDS ORDERED: DEXTROSE 15 GM of carb/4 tabs (each vial/BOTTLE has 4 tablets) PO PRN ×2 (03:20)
[2021-10-10 03:48] LABS: CREATINE KINASE 79 U/L (26-192); LIPASE < 50 U/L (73-393); PHOSPHORUS 3.4 MG/DL (2.3-4.5)
--- NOTE | 2021-10-10 04:50 | NUR ---
Patient in room ED 4-1, to be admitted to PCU 3028. I have received report OMARI Verduzco, from OMARI Treviño, and had the opportunity to ask questions and assume patient care.
[2021-10-10 05:05] VITALS: BP 145/64
--- NOTE | 2021-10-10 05:05 | NUR ---
Pt arrived 3028A, placed on Tele, bed in lowest position, side rails up x2, call light placed within easy reach of pt, Heparin gtt infusins at 1100units/hr. POC discussed with pt, verbalized understanding. Pt crying continously, states her necks is hurting constantly, Morphine given in ED,only with mild effect, No distress noted. Will medicate with pain med as needed.
[2021-10-10 06:00] VITALS: BP 142/68
[2021-10-10] MEDS: HYDROcodone/acetaminophen 5mg/325mg tablet PO PRN (06:24)
--- NOTE | 2021-10-10 06:30 | NUR ---
Problems reprioritized. Patient report given, questions answered & plan of care reviewed with OMARI Iglesias, Heparin infusion continues at 1100units/hr-11cc/hr. .
--- NOTE | 2021-10-10 07:51 | NUR ---
Pt has uncontrollable crying, very emotional. According to night nurse, patient has being crying all night. Test/Page Dr. Rodriguez for orders..Awating orders.
[2021-10-10] MEDS: docusate sod 100mg capsule PO SCH ×2 (08:03→20:00)
[2021-10-10] MEDS: morphine 2 MG/ML inj. syringe IV PRN ×2 (08:05→15:06)
[2021-10-10] MEDS: ondansetron/PF 4mg/2ml inj IV PRN ×2 (08:06→20:04)
[2021-10-10] MEDS ORDERED: ALPRAZolam 0.25mg tablet PO PRN (09:40)
[2021-10-10] MEDS ORDERED: HYDROmorphone inj. 0.5 MG/0.5 ML DISP.SYRIN IV ONE (09:40)
[2021-10-10] MEDS ORDERED: LORazepam 0.5 MG tablet PO PRN (09:50)
[2021-10-10 11:00] VITALS: BP 157/70
[2021-10-10] MEDS ORDERED: APIX5TAB3 PO (11:02)
[2021-10-10] MEDS ORDERED: HYDR-4069 PO (11:02)
--- NOTE | 2021-10-10 12:23 | NUR ---
Page Sent to Dr Rodriguez re: critical imaging result promotional table spacer PAGER ID: [phone] MESSAGE: [phone] Alicia. - Please call Dr. Cuevas from [facility] for critical imaging result at [phone]. [place] [phone]
[2021-10-10 15:00] VITALS: BP 165/70
[2021-10-10] MEDS ORDERED: iohexol 350MG/ML 100ml bottle IV ONE (15:58)
--- NOTE | 2021-10-10 18:01 | NUR ---
Paged/Text Md for completion of med rec for pt.. CT scan of neck results called to Dr. Rodriguez. Received orders for Dilauded .5mg q4hrs prn pain, DC Morphine order.Pt complaints of Morphine not working.
--- NOTE | 2021-10-10 18:30 | NUR ---
Patient in room PCU 3028. I have received report from OMARI Iglesias and had the opportunity to ask questions and assume patient care.
[2021-10-10 19:00] VITALS: BP 151/69
--- NOTE | 2021-10-10 19:53 | NUR ---
Patient reports she feels like her throat is closing, she is vomiting and I am worried she may aspirate. I cld Dr. Cerda and advised him of this and that I think she needs to be in ICU for close monitoring.
--- NOTE | 2021-10-10 20:00 | NUR ---
Patient c/o nausea and vomiting X 1, stating that she feels her throat is closing up. Called Dr Cerda made aware, visited and assessed patient. New orders received and carried out.
[2021-10-10] MEDS: LORazepam 2 mg/ml vial IV PRN (20:20)
[2021-10-10 23:00] VITALS: BP 160/75
[2021-10-11] MEDS ORDERED: dexamethasone 4mg/ml inj IV STA (00:01)
[2021-10-11] MEDS ORDERED: epiNEPHrine 1 mg/ml inj IM STA (00:01)
[2021-10-11] MEDS: heparin 25,000 UNIT/250ml bag 250 ML IV SCH ×2 (00:04→06:58)
[2021-10-11] MEDS: insulin glargine (Lantus) pen - multi-dose SQ SCH ×2 (00:05→21:11)
[2021-10-11 03:00] VITALS: BP 159/51
[2021-10-11 06:00] VITALS: BP 149/46
--- NOTE | 2021-10-11 06:42 | NUR ---
Problems reprioritized. Patient report given, questions answered & plan of care reviewed with Kelsie RN.
[2021-10-11] MEDS ORDERED: heparin 25,000 UNIT/250ml bag 250 ML IV SCH (07:00)
[2021-10-11] MEDS ORDERED: heparin 10,000 units/1 ML INJ IV PRN (07:00)
[2021-10-11] MEDS ORDERED: heparin 10,000 units/1 ML INJ IV ONE (07:00)
[2021-10-11] MEDS ORDERED: hydrALAZINE 25 MG tablet PO PRN (07:00)
[2021-10-11 07:07] LABS: BASOPHILS % (AUTO) 0.3 % (0-1); EOSINOPHILS % (AUTO) 0 % (0-6); HEMATOCRIT 25.1 % (35.0-45.0); HEMOGLOBIN 7.9 g/dl (12.0-16.0); LYMPHOCYTES # (AUTO) 0.4 X10'3 (1.1-4.8); LYMPHOCYTES % (AUTO) 2.7 % (21-51); MEAN CORPUSCULAR HEMOGLOBIN 27.7 PG (27.0-31.0); MEAN CORPUSCULAR HGB CONC 31.3 g/dL (33.0-36.5); MEAN CORPUSCULAR VOLUME 88.3 FL (78-98); MEAN PLATELET VOLUME 8.3 FL (7.4-10.4); MONOCYTES # (AUTO) 0.9 X10'3 (0-0.9); MONOCYTES % (AUTO) 5.6 % (2-12); NEUTROPHILS # (AUTO) 15.1 X10'3 (1.8-7.7); NEUTROPHILS % (AUTO) 91.4 % (42-75); PLATELET COUNT 495 X10'3 (140-440); RED BLOOD COUNT 2.84 X10'6 (4.20-5.60); RED CELL DISTRIBUTION WIDTH 17.5 % (11.5-14.5); WHITE BLOOD COUNT 16.5 X10'3 (4.5-11.0)
--- NOTE | 2021-10-11 07:21 | NUR ---
Pt complaints of inability to swallow. Neck and bilateral arms more swollen this morning than yesterday. More swollen on the right on arm.Patient states skin feels tight. Skin warm. Heparin still going as ordered. Vital signs taken placed on chart. Notified md via textn paged, regarding need for possible transfer to ICU. Awaiting additional orders.
[2021-10-11 07:32] LABS: ALANINE AMINOTRANSFERASE 13 U/L (12-78); ALBUMIN 2.7 G/DL (3.4-5.0); ALBUMIN/GLOBULIN RATIO 0.6 (1.1-1.5); ALKALINE PHOSPHATASE 167 IU/L (46-116); ANION GAP 15 (8-16); ASPARTATE AMINO TRANSFERASE 11 U/L (10-37); BILIRUBIN,TOTAL 0.6 MG/DL (0.1-1.0); BLOOD UREA NITROGEN 55 MG/DL (7-18); BUN/CREATININE RATIO 7.1 (6.6-38.0); CALCIUM 8.5 MG/DL (8.5-10.1); CHLORIDE 93 MMOL/L (99-107); CREATININE 7.75 MG/DL (0.40-0.90); GLUCOSE 228 MG/DL (70-104); POTASSIUM 5.4 MMOL/L (3.5-5.1); SODIUM 128 MMOL/L (135-145); TOTAL CARBON DIOXIDE 20.5 MMOL/L (24-32); TOTAL PROTEIN 7.5 G/DL (6.4-8.2); eGFR 6 ML/MIN
[2021-10-11] MEDS ORDERED: EPOETIN ALFA-EPBX 20,000 UNIT/ML 1 ML MDV IV ONE (07:50)
[2021-10-11] MEDS ORDERED: albumin (human) 25% 100ml IV 100 ML IV PRN (07:50)
[2021-10-11] MEDS ORDERED: heparin 1,000 units/ml 10ml inj HE ONE ×2 (07:55)
[2021-10-11] MEDS: docusate sod 100mg capsule PO SCH ×2 (08:42→19:53)
[2021-10-11] MEDS: cyclobenzaprine 10mg tablet PO SCH ×2 (08:43→19:55)
[2021-10-11] MEDS: FLUoxetine 20mg capsule PO SCH (08:43)
[2021-10-11] MEDS: aspirin 81mg tab.chew PO SCH (08:43)
[2021-10-11] MEDS: furosemide 40mg tablet PO SCH ×2 (08:44→19:55)
[2021-10-11] MEDS: pantoprazole 40mg Tablet.DR PO SCH (08:44)
[2021-10-11] MEDS: calcium acetate 667mg (PhosLO) capsule PO SCH ×3 (08:44→19:53)
[2021-10-11] MEDS: topiramate 25mg tablet PO SCH (08:45)
[2021-10-11] MEDS: metoprolol tartrate 50mg tablet PO SCH ×2 (08:46→19:54)
[2021-10-11] MEDS: lisinopril 20mg tablet PO SCH (08:47)
[2021-10-11] MEDS: HYDROmorphone inj. 0.5 MG/0.5 ML DISP.SYRIN IV PRN ×2 (08:50→19:56)
[2021-10-11] MEDS: ondansetron/PF 4mg/2ml inj IV PRN ×2 (09:03→20:05)
[2021-10-11] MEDS: insulin Lispro (HumaLOG) vial - multi-dose SQ SCH (10:26)
[2021-10-11 11:00] VITALS: BP 154/78
[2021-10-11] MEDS: LORazepam 2 mg/ml vial IV PRN ×2 (11:43→20:48)
[2021-10-11] MEDS: dextrose 50%-water 50ml dispensing syringe IV PRN (12:57)
[2021-10-11 15:00] VITALS: BP 173/73
[2021-10-11] MEDS: diphenhydrAMINE 50 mg/ml inj IV PRN (16:01)
--- NOTE | 2021-10-11 18:15 | NUR ---
Patient in room PCU 3028. I have received report from OMARI Iglesias and had the opportunity to ask questions and assume patient care.
[2021-10-11 19:00] VITALS: BP 102/46
--- NOTE | 2021-10-11 19:50 | NUR ---
Patient ate about 50% of her full liquid diet for dinner, refused insulin at this time, BG 121 before dinner.
--- NOTE | 2021-10-11 20:28 | NUR ---
DR. HODGE AT THE BEDSIDE
[2021-10-11] MEDS ORDERED: docusate sod 100mg capsule PO SCH (21:00)
--- NOTE | 2021-10-11 21:59 | NUR ---
Called placed to Dr Cerda made aware that patient is still on Heparin drips and have a biopsy procedure tomorrow Sunday. Stated to continue the Heparin drips. Truck Chauffeur made aware.
[2021-10-11 23:00] VITALS: BP 133/73
[2021-10-12] VITALS (23 sets, daily range): BP systolic 106–170; BP diastolic 43–88
[2021-10-12] MEDS: ceFAZolin/D5W- 1GM premix 50 ML IV SCH ×2 (00:11→08:52)
[2021-10-12] MEDS: HYDROmorphone inj. 0.5 MG/0.5 ML DISP.SYRIN IV PRN ×2 (00:54→08:54)
[2021-10-12] MEDS: LORazepam 2 mg/ml vial IV PRN ×2 (01:05→11:31)
[2021-10-12] MEDS: HYDROcodone/acetaminophen 5mg/325mg tablet PO PRN (04:16)
--- NOTE | 2021-10-12 06:31 | NUR ---
Problems reprioritized. Patient report given, questions answered & plan of care reviewed with OMARI Damon.
[2021-10-12 07:02] LABS: BASOPHILS # (AUTO) 0.1 X10'3 (0-0.2); BASOPHILS % (AUTO) 0.9 % (0-1); EOSINOPHILS # (AUTO) 0.4 X10'3 (0-0.9); EOSINOPHILS % (AUTO) 2.5 % (0-6); HEMATOCRIT 24.5 % (35.0-45.0); HEMOGLOBIN 7.8 g/dl (12.0-16.0); LYMPHOCYTES # (AUTO) 1.3 X10'3 (1.1-4.8); MEAN CORPUSCULAR HEMOGLOBIN 27.8 PG (27.0-31.0); MEAN CORPUSCULAR HGB CONC 31.7 g/dL (33.0-36.5); MEAN CORPUSCULAR VOLUME 87.7 FL (78-98); MONOCYTES # (AUTO) 1.9 X10'3 (0-0.9); MONOCYTES % (AUTO) 12.3 % (2-12); NEUTROPHILS # (AUTO) 11.3 X10'3 (1.8-7.7); NEUTROPHILS % (AUTO) 75.3 % (42-75); PLATELET COUNT 471 X10'3 (140-440); RED BLOOD COUNT 2.79 X10'6 (4.20-5.60); RED CELL DISTRIBUTION WIDTH 17.5 % (11.5-14.5)
[2021-10-12 07:26] LABS: ALANINE AMINOTRANSFERASE 8 U/L (12-78); ALBUMIN 2.4 G/DL (3.4-5.0); ALBUMIN/GLOBULIN RATIO 0.5 (1.1-1.5); ALKALINE PHOSPHATASE 158 IU/L (46-116); ANION GAP 15 (8-16); ASPARTATE AMINO TRANSFERASE 14 U/L (10-37); BILIRUBIN,TOTAL 0.4 MG/DL (0.1-1.0); BLOOD UREA NITROGEN 25 MG/DL (7-18); BUN/CREATININE RATIO 5.5 (6.6-38.0); CALCIUM 8.9 MG/DL (8.5-10.1); CHLORIDE 96 MMOL/L (99-107); CREATININE 4.54 MG/DL (0.40-0.90); GLUCOSE 82 MG/DL (70-104); POTASSIUM 3.8 MMOL/L (3.5-5.1); SODIUM 137 MMOL/L (135-145); TOTAL CARBON DIOXIDE 26.1 MMOL/L (24-32); TOTAL PROTEIN 7.3 G/DL (6.4-8.2); eGFR 11 ML/MIN
[2021-10-12] MEDS: pantoprazole 40mg Tablet.DR PO SCH (07:30)
--- NOTE | 2021-10-12 07:32 | NUR ---
Dr Rodriguez paged for patient in room 3028A [facility], scheduled for biopsy procedure scheduled for 1215 today, on heparin drip, aPTT 78, 1100 units/hour
--- NOTE | 2021-10-12 07:47 | NUR ---
call placed to Dr. Dawson regarding heparin drip and patient scheduled for biopsy procedure at 1215, order received to stop heparin drip at 0900.
[2021-10-12] MEDS: metoprolol tartrate 50mg tablet PO SCH ×2 (08:00→21:08)
[2021-10-12] MEDS: docusate sod 100mg capsule PO SCH ×2 (08:00→21:08)
[2021-10-12] MEDS: topiramate 25mg tablet PO SCH (08:00)
[2021-10-12] MEDS: furosemide 40mg tablet PO SCH ×2 (08:00→21:08)
[2021-10-12] MEDS: cyclobenzaprine 10mg tablet PO SCH ×2 (08:00→21:07)
[2021-10-12] MEDS: lisinopril 20mg tablet PO SCH (08:00)
[2021-10-12] MEDS: calcium acetate 667mg (PhosLO) capsule PO SCH ×2 (08:00→13:00)
[2021-10-12] MEDS: FLUoxetine 20mg capsule PO SCH (08:00)
[2021-10-12] MEDS: aspirin 81mg tab.chew PO SCH (08:30)
[2021-10-12 12:15] LABS: HBSAG SCREEN Negative (Negative)
[2021-10-12] MEDS: dextrose 50%-water 50ml dispensing syringe IV PRN (12:33)
--- NOTE | 2021-10-12 12:41 | NUR ---
patient BS was 61, denies any s/s of hypoglycemia, currently NPO for procedure, place call to OR, ok to follow protocol to give D5 per anesthesiologist Mikala.
--- NOTE | 2021-10-12 12:51 | NUR ---
Patient off unit for procedure, report given to nurse Radha from recovery.
[2021-10-12] MEDS ORDERED: BUPIVAcaine 0.5% inj/PF 30 ML ONE (12:59)
[2021-10-12] MEDS ORDERED: BUPIVACAINE liposomal/PF 13.3 MG/ML vial IM ONE (12:59)
[2021-10-12] MEDS ORDERED: LIDOcaine 1% (10mg/ml) 2ml vial ONE (13:08)
[2021-10-12] MEDS ORDERED: MIDAZolam 1 MG/ML 5ML VIAL ONE (13:12)
[2021-10-12] MEDS ORDERED: etomidate 2mg/ml inj. ONE (13:13)
[2021-10-12] MEDS ORDERED: rocuronium 10mg/ml inj IV ONE ×2 (13:13→13:45)
[2021-10-12] MEDS ORDERED: fentaNYL /PF 50mcg/ml 5ml ampule ONE (13:13)
[2021-10-12] MEDS ORDERED: ringers solution, lacted 1,000 ML IV SCH (13:35)
[2021-10-12] MEDS ORDERED: morphine 4 MG/ML inj SYRINge IV PRN (13:35)
[2021-10-12] MEDS ORDERED: enalaprilat dihydrate 2.5mg/2ml vial IV PRN (13:35)
[2021-10-12] MEDS ORDERED: ondansetron/PF 4mg/2ml inj IV PRN ×2 (13:35→16:45)
[2021-10-12] MEDS ORDERED: fentaNYL/PF 50MCG/1 ML 2ML syringe IV PRN ×2 (13:35)
[2021-10-12] MEDS ORDERED: morphine 2 MG/ML inj. syringe IV PRN ×2 (13:35→16:45)
[2021-10-12] MEDS ORDERED: hydrALAZINE 20mg/ml inj. IV PRN (13:35)
[2021-10-12] MEDS ORDERED: sevoflurane 250ml liquid IH ONE (13:45)
[2021-10-12] MEDS ORDERED: ondansetron/PF 4mg/2ml inj ONE (13:45)
[2021-10-12] MEDS ORDERED: NORepinephrine 8 MG in NS 250 ML BAG (32 mcg/ml) IV ONE (13:45)
[2021-10-12] MEDS ORDERED: dexamethasone sod phosphate 10mg/ml inj ONE (13:45)
[2021-10-12] MEDS ORDERED: albumin (Human) 5% 250ml 250 ML IV ONE (16:08)
[2021-10-12] MEDS ORDERED: sugammadex 200mg/2ml injection IV ONE (16:18)
[2021-10-12] MEDS ORDERED: labetalol 20mg/4ml (5mg/ml) syringe IV ONE (16:26)
[2021-10-12] MEDS ORDERED: metoclopramide 5 mg/ml inj IV PRN (16:45)
[2021-10-12] MEDS ORDERED: CADD PCA waste documentation MC PRN (16:45)
[2021-10-12] MEDS ORDERED: naloxone 0.4 mg/ml inj IV PRN (16:45)
[2021-10-12] MEDS ORDERED: FENTANYL CITRATE/PF 50 MCG/1 ML VIAL ONE (16:51)
--- NOTE | 2021-10-12 16:55 | NUR ---
Received from OR via ICU BED , accompanied by Anesthesiologist DA and report given by Anesthesiolgist. PATIENT WITH 20G PIV IN RIGHT UE. DIALYSIS PORT TO RIGHT CHEST SL. CHEST TUBE X1 TO LEFT CHEST WALL. SCANT DRAINAGE PRESNET IN ATRIUM. 20G PIV IN RIGHT UE WELL. TRIPLE LUMEN AND ART LINE IN RIGHT GROIN. ORAL AIRWAY IN PLACE. RT PRESENT TO SET UP BIPAP. Addendum: 10/12/21 at 1731 by Antonieta Mcmanus RN Amended: Links added.
[2021-10-12 17:15] LABS: ABG BASE EXCESS -5.6 mmol/L (-2.0-2.0); ABG HCO3 22.9 mmol/L (22.0-26.0); ABG OXYGEN SATURATION 99.9 % (94-97); ABG PCO2 (T) 61.9 mmHg (32.0-45.0); FLOW 15 L/min; FMetHb 0.3 % (0.0-1.5); FO2Hb 98.6 % (94-97); PATIENT TEMPERATURE 36.4
[2021-10-12 18:30] LABS: ABG BASE EXCESS -6.8 mmol/L (-2.0-2.0); ABG HCO3 18.4 mmol/L (22.0-26.0); ABG OXYGEN SATURATION 99.2 % (94-97); ABG PCO2 (T) 35.9 mmHg (32.0-45.0); ABG PO2 (T) 176.7 mmHg (75.0-100.0); FCOHb 0.8 % (0.0-3.9); FMetHb 0.2 % (0.0-1.5); FO2Hb 98.2 % (94-97); PATIENT TEMPERATURE 37.2; TOTAL HEMOGLOBIN 7.7 G/dl (12.0-16.0)
--- NOTE | 2021-10-12 19:35 | NUR ---
ALL CRITERIA FOR TRANSFER TO THE ICU HAS BEEN MET. VSS. PATIENT TAKEN OFF BIPAP AND TAKEN TO THE UNIT. ALL PATIENT LINES IN PLACE AND INTACT. PATIENT CHEST TUBE STILL WITH APPROXIMATELY 200CC IN ATRIUM. PATIENT DENIES DISCOMFORT AT THIS TIME. IVS AND LINES ALL INTACT. VSS. RNS PRESENT TO ACCEPT CARE OF PATIENT. Addendum: 10/12/21 at 1946 by Merrick Bush RN RN Amended: Links added.
[2021-10-12] MEDS: morphine 4 MG/ML inj SYRINge IV PRN (19:59)
[2021-10-12] MEDS: insulin glargine (Lantus) pen - multi-dose SQ SCH (21:00)
[2021-10-12] MEDS: gabapentin 300mg capsule PO SCH (21:07)
[2021-10-12] MEDS: HYDROcodone/acetaminophen 10/325mg tab PO PRN (21:44)
[2021-10-13] VITALS (22 sets, daily range): BP systolic 108–179; BP diastolic 26–117
[2021-10-13] MEDS: morphine 4 MG/ML inj SYRINge IV PRN (01:21)
[2021-10-13 02:14] LABS: BASOPHILS % (AUTO) 0.4 % (0-1); EOSINOPHILS % (AUTO) 0.1 % (0-6); HEMATOCRIT 22.2 % (35.0-45.0); LYMPHOCYTES # (AUTO) 0.6 X10'3 (1.1-4.8); LYMPHOCYTES % (AUTO) 4.9 % (21-51); MEAN CORPUSCULAR HEMOGLOBIN 26.6 PG (27.0-31.0); MEAN CORPUSCULAR HGB CONC 30.5 g/dL (33.0-36.5); MEAN CORPUSCULAR VOLUME 87.3 FL (78-98); MEAN PLATELET VOLUME 8.1 FL (7.4-10.4); NEUTROPHILS # (AUTO) 11.4 X10'3 (1.8-7.7); NEUTROPHILS % (AUTO) 86.6 % (42-75); PLATELET COUNT 476 X10'3 (140-440); RED BLOOD COUNT 2.55 X10'6 (4.20-5.60); RED CELL DISTRIBUTION WIDTH 17.3 % (11.5-14.5); WHITE BLOOD COUNT 13.1 X10'3 (4.5-11.0)
[2021-10-13 02:22] LABS: HEMOGLOBIN 6.8 g/dl (12.0-16.0)
[2021-10-13 02:30] LABS: ALANINE AMINOTRANSFERASE 8 U/L (12-78); ALBUMIN 2.8 G/DL (3.4-5.0); ALBUMIN/GLOBULIN RATIO 0.7 (1.1-1.5); ALKALINE PHOSPHATASE 130 IU/L (46-116); ANION GAP 18 (8-16); ASPARTATE AMINO TRANSFERASE 21 U/L (10-37); BILIRUBIN,TOTAL 0.4 MG/DL (0.1-1.0); BLOOD UREA NITROGEN 38 MG/DL (7-18); BUN/CREATININE RATIO 6.4 (6.6-38.0); CALCIUM 8.5 MG/DL (8.5-10.1); CHLORIDE 95 MMOL/L (99-107); CREATININE 5.94 MG/DL (0.40-0.90); GLUCOSE 185 MG/DL (70-104); POTASSIUM 4.6 MMOL/L (3.5-5.1); SODIUM 135 MMOL/L (135-145); TOTAL CARBON DIOXIDE 21.9 MMOL/L (24-32); TOTAL PROTEIN 6.9 G/DL (6.4-8.2); eGFR 8 ML/MIN
--- NOTE | 2021-10-13 03:20 | NUR ---
10/13/21 received report on patient from OMARI Sin (recovery unit). 1930hrs patient arrived on unit aox4 and no distress observed. Pt has left side chest tube and is being placed on cpap.
--- NOTE | 2021-10-13 06:25 | NUR ---
Notified MD of H&H value, no orders given.
--- NOTE | 2021-10-13 06:26 | NUR ---
Problems reprioritized. Patient report given, questions answered & plan of care reviewed with, Mercy SALCIDO.
[2021-10-13] MEDS: calcium acetate 667mg (PhosLO) capsule PO SCH ×4 (06:54→19:55)
[2021-10-13] MEDS: metoprolol tartrate 50mg tablet PO SCH ×2 (08:00→19:56)
[2021-10-13] MEDS ORDERED: EPOETIN ALFA-EPBX 20,000 UNIT/ML 1 ML MDV IV ONE (08:00)
[2021-10-13] MEDS ORDERED: normal saline 1000ml 250 ML IV PRN (08:00)
[2021-10-13] MEDS: lisinopril 20mg tablet PO SCH (08:00)
[2021-10-13] MEDS ORDERED: heparin 1,000unit/ml 10ml vial 10 ML IV ONE (08:00)
[2021-10-13] MEDS ORDERED: heparin 1,000 units/ml 10ml inj HE ONE ×2 (08:00)
[2021-10-13] MEDS: ceFAZolin inj. 1,000 MG in dextrose 5%-water 50ml 50 ML IV SCH ×3 (08:53)
[2021-10-13] MEDS: gabapentin 300mg capsule PO SCH ×2 (08:53→19:55)
[2021-10-13] MEDS: aspirin 81mg tab.chew PO SCH (08:53)
[2021-10-13] MEDS: cyclobenzaprine 10mg tablet PO SCH ×2 (08:53→19:55)
[2021-10-13] MEDS: FLUoxetine 20mg capsule PO SCH (08:53)
[2021-10-13] MEDS: docusate sod 100mg capsule PO SCH ×2 (08:53→19:55)
[2021-10-13] MEDS: topiramate 25mg tablet PO SCH (08:54)
[2021-10-13] MEDS: pantoprazole 40mg Tablet.DR PO SCH (09:00)
[2021-10-13] MEDS: furosemide 40mg tablet PO SCH ×2 (09:00→19:55)
[2021-10-13] MEDS: HYDROcodone/acetaminophen 10/325mg tab PO PRN ×2 (09:08→22:06)
[2021-10-13] MEDS: LORazepam 2 mg/ml vial IV PRN (14:42)
[2021-10-13] MEDS ORDERED: LIDOcaine 1% (10mg/ml) 2ml vial SQ ONE (16:10)
[2021-10-13] MEDS ORDERED: diphenhydrAMINE 50 mg/ml inj IV ONE (16:10)
--- NOTE | 2021-10-13 17:00 | NUR ---
Report called to receiving nurse OMARI Alford. Transferred via bed. Belongings transferred with patient. at bedside with belongings intact and aware of transfer. Special Issues communicated to receiving nurse. Chart transferred with patient.
--- NOTE | 2021-10-13 17:11 | NUR ---
Received pt from ICU via bed. retail loan originator assistant and at bedside. Pt A&O x4, resting comfortably. HD about to begin. Oriented to room and equipment. Pt on 2L O2 via NC, Chest tube to water seal. SPEECH PATHOLOGY ASSISTANT marked 90ml drainage on atrium.
[2021-10-13] MEDS: apixaban 5mg tablet PO SCH (19:55)
[2021-10-13] MEDS: heparin 25,000 UNIT/250ml bag 250 ML IV SCH (20:15)
[2021-10-13] MEDS: insulin glargine (Lantus) pen - multi-dose SQ SCH (21:00)
[2021-10-14 02:00] VITALS: BP 147/44
[2021-10-14] MEDS: HYDROcodone/acetaminophen 10/325mg tab PO PRN ×3 (05:00→19:46)
[2021-10-14 05:37] LABS: BASOPHILS % (AUTO) 0.4 % (0-1); EOSINOPHILS # (AUTO) 0.5 X10'3 (0-0.9); EOSINOPHILS % (AUTO) 4.6 % (0-6); HEMOGLOBIN 8.2 g/dl (12.0-16.0); LYMPHOCYTES # (AUTO) 1.3 X10'3 (1.1-4.8); LYMPHOCYTES % (AUTO) 12.5 % (21-51); MEAN CORPUSCULAR HEMOGLOBIN 28.3 PG (27.0-31.0); MEAN CORPUSCULAR HGB CONC 32.8 g/dL (33.0-36.5); MEAN CORPUSCULAR VOLUME 86.4 FL (78-98); MEAN PLATELET VOLUME 8.1 FL (7.4-10.4); MONOCYTES # (AUTO) 1.4 X10'3 (0-0.9); MONOCYTES % (AUTO) 14.3 % (2-12); NEUTROPHILS # (AUTO) 6.9 X10'3 (1.8-7.7); NEUTROPHILS % (AUTO) 68.2 % (42-75); PLATELET COUNT 420 X10'3 (140-440); RED CELL DISTRIBUTION WIDTH 17.2 % (11.5-14.5); WHITE BLOOD COUNT 10.1 X10'3 (4.5-11.0)
[2021-10-14 06:00] VITALS: BP 123/39
[2021-10-14 06:05] LABS: ALBUMIN 2.3 G/DL (3.4-5.0); ALBUMIN/GLOBULIN RATIO 0.6 (1.1-1.5); ALKALINE PHOSPHATASE 145 IU/L (46-116); ANION GAP 11 (8-16); ASPARTATE AMINO TRANSFERASE 21 U/L (10-37); BILIRUBIN,TOTAL 0.5 MG/DL (0.1-1.0); BLOOD UREA NITROGEN 16 MG/DL (7-18); CALCIUM 8.1 MG/DL (8.5-10.1); CHLORIDE 101 MMOL/L (99-107); CREATININE 3.22 MG/DL (0.40-0.90); GLUCOSE 146 MG/DL (70-104); POTASSIUM 4.1 MMOL/L (3.5-5.1); SODIUM 139 MMOL/L (135-145); TOTAL CARBON DIOXIDE 26.9 MMOL/L (24-32); TOTAL PROTEIN 6.2 G/DL (6.4-8.2); eGFR 16 ML/MIN
[2021-10-14 06:22] LABS: ALANINE AMINOTRANSFERASE 8 U/L (12-78)
[2021-10-14] MEDS: pantoprazole 40mg Tablet.DR PO SCH (07:30)
[2021-10-14] MEDS: docusate sod 100mg capsule PO SCH ×2 (08:00→19:48)
[2021-10-14] MEDS: calcium acetate 667mg (PhosLO) capsule PO SCH ×3 (08:47→18:44)
[2021-10-14] MEDS: cyclobenzaprine 10mg tablet PO SCH ×2 (08:48→19:42)
[2021-10-14] MEDS: FLUoxetine 20mg capsule PO SCH (08:48)
[2021-10-14] MEDS: furosemide 40mg tablet PO SCH ×2 (08:49→19:43)
[2021-10-14] MEDS: gabapentin 300mg capsule PO SCH (08:49)
[2021-10-14] MEDS: topiramate 25mg tablet PO SCH (08:49)
[2021-10-14] MEDS: apixaban 5mg tablet PO SCH ×2 (08:49→19:42)
[2021-10-14] MEDS: aspirin 81mg tab.chew PO SCH (08:49)
[2021-10-14] MEDS: lisinopril 20mg tablet PO SCH (09:44)
[2021-10-14] MEDS: metoprolol tartrate 50mg tablet PO SCH ×2 (09:45→19:44)
[2021-10-14] MEDS: LORazepam 2 mg/ml vial IV PRN ×2 (09:45→21:37)
[2021-10-14 10:00] VITALS: BP 180/70
--- NOTE | 2021-10-14 11:49 | NUR ---
Dr. Dawson at bedside removing chest tube.
[2021-10-14 14:00] VITALS: BP 121/94
[2021-10-14] MEDS: insulin Lispro (HumaLOG) vial - multi-dose SQ SCH ×2 (14:04→20:37)
--- NOTE | 2021-10-14 14:17 | NUR ---
Pt was due to receive 9 units of Humalog for her noon blood sugar of 241 along with eating 37 carbs for lunch. Pt insisted on only receiving 5 units.
[2021-10-14 18:00] VITALS: BP 139/40
--- NOTE | 2021-10-14 20:34 | NUR ---
unable to cover patient dinner carbs - notified Pharm that there is no insulin in personal bin. will cover at 2100 after BS taken
[2021-10-14] MEDS: insulin glargine (Lantus) pen - multi-dose SQ SCH (21:30)
[2021-10-14 22:00] VITALS: BP 166/51
[2021-10-15] MEDS: HYDROcodone/acetaminophen 10/325mg tab PO PRN ×4 (01:05→23:12)
[2021-10-15 02:00] VITALS: BP 153/44
[2021-10-15 06:00] VITALS: BP 156/45
--- NOTE | 2021-10-15 06:24 | NUR ---
Problems reprioritized. Patient report given, questions answered & plan of care reviewed with OMARI Hickman.
[2021-10-15 06:47] LABS: BASOPHILS # (AUTO) 0.1 X10'3 (0-0.2); BASOPHILS % (AUTO) 0.8 % (0-1); EOSINOPHILS # (AUTO) 0.7 X10'3 (0-0.9); EOSINOPHILS % (AUTO) 7.2 % (0-6); HEMATOCRIT 26.8 % (35.0-45.0); HEMOGLOBIN 8.7 g/dl (12.0-16.0); LYMPHOCYTES # (AUTO) 1.2 X10'3 (1.1-4.8); LYMPHOCYTES % (AUTO) 11.6 % (21-51); MEAN CORPUSCULAR HEMOGLOBIN 27.9 PG (27.0-31.0); MEAN CORPUSCULAR HGB CONC 32.5 g/dL (33.0-36.5); MEAN PLATELET VOLUME 8.1 FL (7.4-10.4); MONOCYTES # (AUTO) 1.3 X10'3 (0-0.9); MONOCYTES % (AUTO) 12.7 % (2-12); NEUTROPHILS # (AUTO) 6.9 X10'3 (1.8-7.7); NEUTROPHILS % (AUTO) 67.7 % (42-75); PLATELET COUNT 461 X10'3 (140-440); RED BLOOD COUNT 3.12 X10'6 (4.20-5.60); RED CELL DISTRIBUTION WIDTH 17.7 % (11.5-14.5); WHITE BLOOD COUNT 10.2 X10'3 (4.5-11.0)
[2021-10-15] MEDS: LORazepam 2 mg/ml vial IV PRN ×3 (06:47→22:33)
[2021-10-15 07:00] LABS: ALBUMIN 2.2 G/DL (3.4-5.0); ALBUMIN/GLOBULIN RATIO 0.6 (1.1-1.5); ALKALINE PHOSPHATASE 143 IU/L (46-116); ANION GAP 14 (8-16); ASPARTATE AMINO TRANSFERASE 14 U/L (10-37); BILIRUBIN,TOTAL 0.4 MG/DL (0.1-1.0); BLOOD UREA NITROGEN 43 MG/DL (7-18); BUN/CREATININE RATIO 7.8 (6.6-38.0); CALCIUM 8.6 MG/DL (8.5-10.1); CHLORIDE 100 MMOL/L (99-107); CREATININE 5.53 MG/DL (0.40-0.90); GLUCOSE 196 MG/DL (70-104); POTASSIUM 4.7 MMOL/L (3.5-5.1); SODIUM 139 MMOL/L (135-145); TOTAL CARBON DIOXIDE 25.3 MMOL/L (24-32); TOTAL PROTEIN 6.2 G/DL (6.4-8.2); eGFR 8 ML/MIN
[2021-10-15 07:01] LABS: ALANINE AMINOTRANSFERASE < 6 U/L (12-78)
[2021-10-15] MEDS ORDERED: heparin 1,000 units/ml 10ml inj HE ONE ×2 (08:00)
[2021-10-15] MEDS ORDERED: heparin 1,000unit/ml 10ml vial 10 ML IV ONE (08:00)
[2021-10-15] MEDS: lisinopril 20mg tablet PO SCH (08:00)
[2021-10-15] MEDS: metoprolol tartrate 50mg tablet PO SCH ×2 (08:00→20:52)
[2021-10-15] MEDS ORDERED: EPOETIN ALFA-EPBX 20,000 UNIT/ML 1 ML MDV IV ONE (08:00)
[2021-10-15] MEDS ORDERED: normal saline 1000ml 250 ML IV PRN (08:00)
[2021-10-15 08:18] LABS: ANISOCYTOSIS 1+; PLATELET ESTIMATE INCREASED; TOTAL CELLS COUNTED 100
[2021-10-15] MEDS: cyclobenzaprine 10mg tablet PO SCH ×2 (08:18→20:54)
[2021-10-15 08:19] LABS: HYPOCHROMASIA 2+
[2021-10-15] MEDS: docusate sod 100mg capsule PO SCH ×2 (08:21→20:48)
[2021-10-15] MEDS: calcium acetate 667mg (PhosLO) capsule PO SCH ×3 (08:21→17:52)
[2021-10-15] MEDS: aspirin 81mg tab.chew PO SCH (08:21)
[2021-10-15] MEDS: pantoprazole 40mg Tablet.DR PO SCH (08:21)
[2021-10-15] MEDS: FLUoxetine 20mg capsule PO SCH (08:21)
[2021-10-15] MEDS: apixaban 5mg tablet PO SCH ×2 (08:21→20:48)
[2021-10-15] MEDS: topiramate 25mg tablet PO SCH (08:21)
[2021-10-15] MEDS: furosemide 40mg tablet PO SCH ×2 (08:24→20:59)
[2021-10-15] MEDS: insulin Lispro (HumaLOG) vial - multi-dose SQ SCH ×3 (09:18→19:07)
[2021-10-15 10:00] VITALS: BP 152/71
--- NOTE | 2021-10-15 12:36 | NUR ---
DM consult: Pt with T1DM, well controlled with A1c 6.1%, DM education not warranted at this time. Pt admit for c/o worsening edema of neck and upper extremities, chest CT shows superior mediastinum masses per MD note. 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 Pt with ESRD on HD, documented with 1100 mL fluid removed 10/13. Pt initially on a liquid diet and eating poorly, documented to be refusing meals. Pt now on a regular diet and PO intake is improving up to 100% at breakfast this morning, previously with 25% and 75-100% PO intake. Recommend continuing with regular diet despite PMH to optimize PO intake given well controlled DM and electrolytes WNL. LBM 10/13, receiving routine bowel care. No nutrition intervention implemented at this time. Will continue to follow and make recommendations as appropriate. Recommendations: 1) Continue regular diet; monitor need for renal and/or CHO controlled restrictions 2) Monitor nee for ONS/additional protein 3) Routine bowel care 4) Weekly scaled weights Addendum: 10/15/21 at [address] Amended: Links added.
[2021-10-15 14:00] VITALS: BP 130/60
[2021-10-15 18:00] VITALS: BP_SYST 126; BP_SYST 154; BP_DIAS 69; BP_DIAS 76
--- NOTE | 2021-10-15 18:21 | NUR ---
Problems reprioritized. Patient report given, questions answered & plan of care reviewed with Madeline SALCIDO.
--- NOTE | 2021-10-15 19:14 | NUR ---
Patient in room PCU 3022. I have received report from Marylou SALCIDO and had the opportunity to ask questions and assume patient care.
[2021-10-15] MEDS: insulin glargine (Lantus) pen - multi-dose SQ SCH (20:57)
[2021-10-16 02:00] VITALS: BP 187/80
[2021-10-16] MEDS: HYDROcodone/acetaminophen 10/325mg tab PO PRN ×3 (05:18→19:20)
[2021-10-16 06:00] VITALS: BP 120/68
--- NOTE | 2021-10-16 06:30 | NUR ---
Problems reprioritized. Patient report given Lillian SALCIDO, questions answered & plan of care reviewed with .
[2021-10-16] MEDS: calcium acetate 667mg (PhosLO) capsule PO SCH ×3 (08:05→17:12)
[2021-10-16] MEDS: pantoprazole 40mg Tablet.DR PO SCH (08:05)
[2021-10-16] MEDS: cyclobenzaprine 10mg tablet PO SCH ×2 (08:05→19:18)
[2021-10-16] MEDS: aspirin 81mg tab.chew PO SCH (08:05)
[2021-10-16] MEDS: topiramate 25mg tablet PO SCH (08:05)
[2021-10-16] MEDS: apixaban 5mg tablet PO SCH ×2 (08:05→19:18)
[2021-10-16] MEDS: furosemide 40mg tablet PO SCH ×2 (08:06→19:21)
[2021-10-16] MEDS: FLUoxetine 20mg capsule PO SCH (08:06)
[2021-10-16] MEDS: metoprolol tartrate 50mg tablet PO SCH ×2 (08:06→19:19)
[2021-10-16] MEDS: docusate sod 100mg capsule PO SCH ×2 (08:06→19:19)
[2021-10-16] MEDS: lisinopril 20mg tablet PO SCH (08:06)
[2021-10-16] MEDS: LORazepam 2 mg/ml vial IV PRN ×2 (08:13→23:02)
[2021-10-16] MEDS: insulin Lispro (HumaLOG) vial - multi-dose SQ SCH ×3 (10:11→19:15)
--- NOTE | 2021-10-16 10:11 | NUR ---
patient refused to be given a total of 12 units insulin as per protocol (7 units for nutritional + 5 units for correctional. pt agreed to be given a total of 5 units of insulin "i know my body" as per patient.
[2021-10-16 11:00] VITALS: BP 110/78
[2021-10-16 15:00] VITALS: BP 152/42
[2021-10-16 18:00] VITALS: BP 187/63
[2021-10-16] MEDS: insulin glargine (Lantus) pen - multi-dose SQ SCH (21:47)
[2021-10-16 22:00] VITALS: BP 151/59
--- NOTE | 2021-10-16 22:03 | NUR ---
Patient in room PCU 3022. I have received report from Lillian, and had the opportunity to ask questions and assume patient care.
[2021-10-17] MEDS: HYDROcodone/acetaminophen 10/325mg tab PO PRN ×5 (00:14→21:36)
[2021-10-17 02:00] VITALS: BP 56/59
[2021-10-17] MEDS: LORazepam 2 mg/ml vial IV PRN ×3 (04:12→19:42)
[2021-10-17 06:00] VITALS: BP 156/63
--- NOTE | 2021-10-17 06:15 | NUR ---
Problems reprioritized. Patient report given,Lillian SALCIDO, questions answered & plan of care reviewed with .
[2021-10-17] MEDS: cyclobenzaprine 10mg tablet PO SCH ×2 (08:33→19:43)
[2021-10-17] MEDS: docusate sod 100mg capsule PO SCH ×2 (08:33→19:43)
[2021-10-17] MEDS: aspirin 81mg tab.chew PO SCH (08:33)
[2021-10-17] MEDS: calcium acetate 667mg (PhosLO) capsule PO SCH ×3 (08:33→17:52)
[2021-10-17] MEDS: lisinopril 20mg tablet PO SCH (08:33)
[2021-10-17] MEDS: FLUoxetine 20mg capsule PO SCH (08:33)
[2021-10-17] MEDS: apixaban 5mg tablet PO SCH ×2 (08:33→19:43)
[2021-10-17] MEDS: furosemide 40mg tablet PO SCH ×2 (08:34→19:44)
[2021-10-17] MEDS: metoprolol tartrate 50mg tablet PO SCH ×2 (08:34→19:49)
[2021-10-17] MEDS: pantoprazole 40mg Tablet.DR PO SCH (08:34)
[2021-10-17] MEDS: topiramate 25mg tablet PO SCH (08:34)
[2021-10-17] MEDS: insulin Lispro (HumaLOG) vial - multi-dose SQ SCH ×2 (08:57→14:08)
[2021-10-17 11:00] VITALS: BP 147/41
[2021-10-17 15:00] VITALS: BP 149/63
[2021-10-17 18:00] VITALS: BP 154/64
--- NOTE | 2021-10-17 18:21 | NUR ---
Problems reprioritized. Patient report given, questions answered & plan of care reviewed with Angelia SALCIDO.
[2021-10-17] MEDS: insulin glargine (Lantus) pen - multi-dose SQ SCH (21:44)
[2021-10-17 22:00] VITALS: BP 132/61
[2021-10-18 02:00] VITALS: BP 149/53
[2021-10-18] MEDS: HYDROcodone/acetaminophen 10/325mg tab PO PRN ×2 (05:11→10:02)
[2021-10-18 06:00] VITALS: BP 114/36
--- NOTE | 2021-10-18 06:11 | NUR ---
Problems reprioritized. Patient report given, questions answered & plan of care reviewed with OMARI Snyder.
[2021-10-18 06:23] LABS: BASOPHILS # (AUTO) 0.1 X10'3 (0-0.2); BASOPHILS % (AUTO) 0.6 % (0-1); EOSINOPHILS # (AUTO) 1.2 X10'3 (0-0.9); EOSINOPHILS % (AUTO) 8.4 % (0-6); HEMATOCRIT 29.6 % (35.0-45.0); HEMOGLOBIN 9.2 g/dl (12.0-16.0); LYMPHOCYTES # (AUTO) 1.4 X10'3 (1.1-4.8); LYMPHOCYTES % (AUTO) 9.9 % (21-51); MEAN CORPUSCULAR HEMOGLOBIN 27.4 PG (27.0-31.0); MEAN CORPUSCULAR HGB CONC 31.1 g/dL (33.0-36.5); MEAN CORPUSCULAR VOLUME 88.2 FL (78-98); MONOCYTES # (AUTO) 1.5 X10'3 (0-0.9); MONOCYTES % (AUTO) 10.5 % (2-12); NEUTROPHILS # (AUTO) 9.9 X10'3 (1.8-7.7); NEUTROPHILS % (AUTO) 70.6 % (42-75); PLATELET COUNT 535 X10'3 (140-440); RED BLOOD COUNT 3.36 X10'6 (4.20-5.60); RED CELL DISTRIBUTION WIDTH 17.7 % (11.5-14.5)
[2021-10-18 07:12] LABS: ANISOCYTOSIS 1+; PLATELET ESTIMATE INCREASED; POIKILOCYTOSIS FEW; STOMATOCYTES 1+; TOTAL CELLS COUNTED 100
[2021-10-18 07:13] LABS: LARGE PLATELETS FEW
[2021-10-18] MEDS: furosemide 40mg tablet PO SCH (08:00)
[2021-10-18] MEDS ORDERED: heparin 1,000 units/ml 10ml inj HE ONE ×2 (08:00)
[2021-10-18] MEDS: lisinopril 20mg tablet PO SCH (08:00)
[2021-10-18] MEDS ORDERED: normal saline 1000ml 250 ML IV PRN (08:00)
[2021-10-18] MEDS: metoprolol tartrate 50mg tablet PO SCH (08:00)
[2021-10-18] MEDS ORDERED: heparin 1,000unit/ml 10ml vial 10 ML IV ONE (08:00)
[2021-10-18] MEDS ORDERED: EPOETIN ALFA-EPBX 20,000 UNIT/ML 1 ML MDV IV ONE (08:00)
[2021-10-18] MEDS ORDERED: APIX5TAB3 PO (08:14)
[2021-10-18] MEDS: apixaban 5mg tablet PO SCH (08:20)
[2021-10-18] MEDS: cyclobenzaprine 10mg tablet PO SCH (08:20)
[2021-10-18] MEDS: docusate sod 100mg capsule PO SCH (08:20)
[2021-10-18] MEDS: aspirin 81mg tab.chew PO SCH (08:20)
[2021-10-18] MEDS: calcium acetate 667mg (PhosLO) capsule PO SCH (08:20)
[2021-10-18] MEDS: FLUoxetine 20mg capsule PO SCH (08:20)
[2021-10-18] MEDS: topiramate 25mg tablet PO SCH (08:20)
[2021-10-18] MEDS: LORazepam 2 mg/ml vial IV PRN (08:21)
[2021-10-18] MEDS: pantoprazole 40mg Tablet.DR PO SCH (08:21)
[2021-10-18] MEDS ORDERED: diphenhydrAMINE 50 mg/ml inj IV ONE (10:00)
[2021-10-18] MEDS: insulin Lispro (HumaLOG) vial - multi-dose SQ SCH (10:04)
[2021-10-18 11:00] VITALS: BP 134/59
[2021-10-18] MEDS: diphenhydrAMINE 50 mg/ml inj IV PRN (13:18)
--- NOTE | 2021-10-18 16:00 | NUR ---
home instructions was given and explained to patient and patient's significant other prior to discharge. medically stable for discharge as per MD. PIV discontinued with iv canulla tip complete and intact.
== END 2021-10-18 15:50 | disposition home or self-care (01) | DRG 166 ==
LOC: ER 20:45 → ED HOLD 10-10 03:17 → PCU 3S 10-10 04:55 → CICU 2S 10-12 19:14 → MED 3N 10-13 16:55 → PCU 3S 10-15 16:13
PROVIDERS: ADMIT Family Medicine; ATTEND Internal Medicine
PROC: 5A1D70Z Performance of Urinary Filtration, Intermittent, Less than 6 Hours Per Day (ICD-10-PCS; 2021-10-11)
PROC: 5A09457 Assistance with Respiratory Ventilation, 24-96 Consecutive Hours, Continuous Positive Airway Pressure (ICD-10-PCS; 2021-10-12)
PROC: 8E0W4CZ Robotic Assisted Procedure of Trunk Region, Percutaneous Endoscopic Approach (ICD-10-PCS; 2021-10-12)
PROC: 07B74ZX Excision of Thorax Lymphatic, Percutaneous Endoscopic Approach, Diagnostic (ICD-10-PCS; principal; 2021-10-12 13:45)
PROC: 5A1D70Z Performance of Urinary Filtration, Intermittent, Less than 6 Hours Per Day (ICD-10-PCS; 2021-10-13)
PROC: 30233N1 Transfusion of Nonautologous Red Blood Cells into Peripheral Vein, Percutaneous Approach (ICD-10-PCS; 2021-10-13)
PROC: 02HV33Z Insertion of Infusion Device into Superior Vena Cava, Percutaneous Approach (ICD-10-PCS; 2021-10-13)
PROC: B548ZZA Ultrasonography of Superior Vena Cava, Guidance (ICD-10-PCS; 2021-10-13)
PROC: 04HY32Z Insertion of Monitoring Device into Lower Artery, Percutaneous Approach (ICD-10-PCS; 2021-10-13)
PROC: 5A1D70Z Performance of Urinary Filtration, Intermittent, Less than 6 Hours Per Day (ICD-10-PCS; 2021-10-15)
PROC: 5A1D70Z Performance of Urinary Filtration, Intermittent, Less than 6 Hours Per Day (ICD-10-PCS; 2021-10-18)
DX: J98.59 Other diseases of mediastinum, not elsewhere classified (principal); N18.6 End stage renal disease; I50.33 Acute on chronic diastolic (congestive) heart failure; I82.C11 Acute embolism and thrombosis of right internal jugular vein; I13.2 Hypertensive heart and chronic kidney disease with heart failure and with stage 5 chronic kidney disease, or end stage renal disease; I87.1 Compression of vein; D62 Acute posthemorrhagic anemia; I82.B12 Acute embolism and thrombosis of left subclavian vein; R59.0 Localized enlarged lymph nodes; K86.89 Other specified diseases of pancreas; D63.1 Anemia in chronic kidney disease; E10.22 Type 1 diabetes mellitus with diabetic chronic kidney disease; E10.319 Type 1 diabetes mellitus with unspecified diabetic retinopathy without macular edema; E10.65 Type 1 diabetes mellitus with hyperglycemia; Z20.822 Contact with and (suspected) exposure to COVID-19; G89.4 Chronic pain syndrome; H54.8 Legal blindness, as defined in USA; M54.2 Cervicalgia; I25.10 Atherosclerotic heart disease of native coronary artery without angina pectoris; K08.9 Disorder of teeth and supporting structures, unspecified; Z79.01 Long term (current) use of anticoagulants; Z79.891 Long term (current) use of opiate analgesic; Z86.718 Personal history of other venous thrombosis and embolism; Z90.710 Acquired absence of both cervix and uterus; Z95.5 Presence of coronary angioplasty implant and graft; Z99.2 Dependence on renal dialysis; Z88.8 Allergy status to other drugs, medicaments and biological substances; Z79.899 Other long term (current) drug therapy
CPT/HCPCS: 36415; 36430; 36600; 70490; 71045; 71260; 80053; 82550; 82803; 82948; 83690; 83735; 83880; 84100; 84132; 84443; 84484; 85007; 85018; 85025; 85610; 85730; 86885; 86900; 86901; 86920; 87070; 87075; 87340; 87635; 88184; 88185; 88305; 88312; 88331; 93005; 93971; 94660; 94760; 97110; 97116; 97161; 97530; 99285; A4618; A6258; A6449; A7000; A7048; C9290; G0257; G0378; J0171; J0690; J1100; J1170; J1200; J1644; J1815; J2060; J2250; J2270; J2405; J3010; J3490; J7060; J7120; P9016; P9045; Q0163; Q4081; Q9967; S0020

== ENCOUNTER 2022-01-11 19:12 | Inpatient (IN) | payer MEDICARE, MEDICAID ==
[~2022-01-11] VITALS: Ht 152.4 cm; Wt 57.0 kg
[~2022-01-11 19:12] MED LIST changes: +HYDR-4069 PO; -HYDR-4070 PO; +iohexol 350MG/ML 100ml bottle IV ONE
[2022-01-11 19:48] LABS: HEMOGLOBIN 12.7 g/dl (12.0-16.0); MEAN CORPUSCULAR HEMOGLOBIN 25.4 PG (27.0-31.0); RED BLOOD COUNT 4.99 X10'6 (4.20-5.60)
[2022-01-11 19:50] LABS: BASOPHILS # (AUTO) 0.1 X10'3 (0-0.2); BASOPHILS % (AUTO) 0.5 % (0-1); EOSINOPHILS # (AUTO) 0.3 X10'3 (0-0.9); EOSINOPHILS % (AUTO) 1.2 % (0-6); HEMATOCRIT 40.7 % (35.0-45.0); LYMPHOCYTES # (AUTO) 1.3 X10'3 (1.1-4.8); LYMPHOCYTES % (AUTO) 5.3 % (21-51); MEAN CORPUSCULAR HGB CONC 31.1 g/dL (33.0-36.5); MEAN CORPUSCULAR VOLUME 81.6 FL (78-98); MEAN PLATELET VOLUME 8.7 FL (7.4-10.4); MONOCYTES # (AUTO) 1.6 X10'3 (0-0.9); MONOCYTES % (AUTO) 6.6 % (2-12); NEUTROPHILS # (AUTO) 20.7 X10'3 (1.8-7.7); NEUTROPHILS % (AUTO) 86.4 % (42-75); PLATELET COUNT 356 X10'3 (140-440); RED CELL DISTRIBUTION WIDTH 16.7 % (11.5-14.5)
[2022-01-11 20:02] LABS: ALANINE AMINOTRANSFERASE 25 U/L (12-78); ALBUMIN 3.6 G/DL (3.4-5.0); ALBUMIN/GLOBULIN RATIO 0.7 (1.1-1.5); ALKALINE PHOSPHATASE 192 IU/L (46-116); ANION GAP 15 (8-16); ASPARTATE AMINO TRANSFERASE 50 U/L (10-37); BILIRUBIN,TOTAL 0.3 MG/DL (0.1-1.0); BLOOD UREA NITROGEN 45 MG/DL (7-18); BUN/CREATININE RATIO 6.8 (6.6-38.0); CALCIUM 9.3 MG/DL (8.5-10.1); CHLORIDE 93 MMOL/L (99-107); CREATININE 6.58 MG/DL (0.40-0.90); GLUCOSE 138 MG/DL (70-104); POTASSIUM 4.4 MMOL/L (3.5-5.1); SODIUM 135 MMOL/L (135-145); TOTAL CARBON DIOXIDE 27.4 MMOL/L (24-32); TOTAL PROTEIN 8.5 G/DL (6.4-8.2); eGFR 7 ML/MIN
[2022-01-11 20:38] LABS: PLATELET ESTIMATE NORMAL; TOTAL CELLS COUNTED 100
[2022-01-11 20:39] LABS: ANISOCYTOSIS 1+
[2022-01-11 20:40] LABS: LARGE PLATELETS FEW
[2022-01-11] MEDS: nitroGLYCERIN 0.4mg SUBLingual tab SL PRN (20:41)
[2022-01-11] MEDS ORDERED: ondansetron/PF 4mg/2ml inj IV ONE (20:50)
[2022-01-11] MEDS ORDERED: proCHLORperazine 10 MG/2 ml inj IV ONE (21:25)
[2022-01-11] MEDS ORDERED: normal saline 1000ML IV soln IVB ONE (21:30)
[2022-01-11 21:50] LABS: CLARITY,URINE CLEAR (Clear); COLOR,URINE YELLOW (Yellow); GLUCOSE, URINE 250 mg/dl (Neg); KETONES,URINE TRACE mg/dl (Neg); LEUKOCYTE ESTERASE ,URINE NEGATIVE (Neg); NITRITES, URINE NEGATIVE (Neg); OCCULT BLOOD,URINE SMALL (Neg); PH,URINE 8.5 (4.8-8.0); PROTEIN,URINE >=300 mg/dl (Neg); UROBILINOGEN,URINE 0.2 E.U/dL (0.2-1.0)
[2022-01-11 21:57] LABS: URINE AMPHETAMINE SCREEN NEGATIVE (Neg); URINE BARBITUATE SCREEN NEGATIVE (Neg); URINE BENZODIAZEPINES SCREEN NEGATIVE (Neg); URINE CANNABINOID SCREEN NEGATIVE (Neg); URINE COCAINE SCREEN NEGATIVE (Neg); URINE METHADONE SCREEN NEGATIVE (Neg); URINE OPIATE SCREEN NEGATIVE (Neg); URINE PHENCYCLIDINE SCREEN NEGATIVE (Neg)
[2022-01-11 22:00] LABS: UA COLLECTION TYPE CLN CATCH MIDSTREAM
[2022-01-11 22:02] LABS: BACTERIA,URINE FEW /HPF (Neg); SQUAMOUS EPITHELIAL CELL,UR FEW /LPF (FEW); WBC,URINE 0-4 /HPF (0-4)
[2022-01-11 22:03] LABS: HYALINE CASTS 0-3 /LPF (NEGATIVE)
[2022-01-11] MEDS ORDERED: morphine 4 MG/ML inj SYRINge IV ONE (22:10)
[2022-01-12] VITALS (14 sets, daily range): BP systolic 104–130; BP diastolic 63–78
[2022-01-12] MEDS ORDERED: heparin 10,000 units/1 ML INJ IV PRN (00:15)
[2022-01-12] MEDS ORDERED: LORazepam 2 mg/ml vial IV ONE (00:25)
[2022-01-12] MEDS ORDERED: PERFLUTREN PROTEIN-A MICROSPHR (Optison) 0.22 MG/ML 3ML VIAL IV ONE (00:50)
[2022-01-12] MEDS ORDERED: acetaminophen 325mg tablet PO PRN (00:50)
[2022-01-12] MEDS ORDERED: DEXTROSE 15 GM of carb/4 tabs (each vial/BOTTLE has 4 tablets) PO PRN ×2 (00:55)
[2022-01-12] MEDS ORDERED: insulin Lispro (HumaLOG) vial - multi-dose SQ SCH (00:55)
[2022-01-12] MEDS ORDERED: MESSAGE TO PHARMACY PO ONE (00:55)
[2022-01-12] MEDS ORDERED: glucagon, human recombinant 1mg kit SUBCUT PRN (00:55)
[2022-01-12] MEDS ORDERED: dextrose 50%-water 50ml dispensing syringe IV PRN ×2 (00:55)
[2022-01-12] MEDS: heparin 25,000 UNIT/250ml bag 250 ML IV SCH (01:01)
[2022-01-12 01:13] LABS: BASOPHILS % (AUTO) 0.1 % (0-1); EOSINOPHILS % (AUTO) 0 % (0-6); HEMATOCRIT 34.3 % (35.0-45.0); HEMOGLOBIN 10.8 g/dl (12.0-16.0); LYMPHOCYTES # (AUTO) 0.7 X10'3 (1.1-4.8); LYMPHOCYTES % (AUTO) 2.7 % (21-51); MEAN CORPUSCULAR HEMOGLOBIN 25.7 PG (27.0-31.0); MEAN CORPUSCULAR HGB CONC 31.6 g/dL (33.0-36.5); MEAN CORPUSCULAR VOLUME 81.5 FL (78-98); MEAN PLATELET VOLUME 8.4 FL (7.4-10.4); MONOCYTES # (AUTO) 1.5 X10'3 (0-0.9); MONOCYTES % (AUTO) 5.5 % (2-12); NEUTROPHILS # (AUTO) 25.3 X10'3 (1.8-7.7); NEUTROPHILS % (AUTO) 91.7 % (42-75); PLATELET COUNT 292 X10'3 (140-440); RED BLOOD COUNT 4.22 X10'6 (4.20-5.60)
[2022-01-12] MEDS: normal saline 1000ml 1,000 ML IV SCH (01:18)
[2022-01-12 01:20] LABS: WHITE BLOOD COUNT 27.6 X10'3 (4.5-11.0)
[2022-01-12 01:23] LABS: APTT 32 SECONDS (22-32)
[2022-01-12] MEDS ORDERED: OXYC-658 PO (01:25)
[2022-01-12] MEDS ORDERED: cefTRIAXone 1g/NS 100ml IVPB 100 ML IV ONE (01:55)
[2022-01-12] MEDS ORDERED: INSU100V46 SQ (02:39)
[2022-01-12] MEDS ORDERED: TRAM50TA2 PO (02:39)
[2022-01-12] MEDS ORDERED: PHO667C PO (02:39)
[2022-01-12] MEDS ORDERED: CLOP75TA34 PO (02:41)
[2022-01-12] MEDS ORDERED: TIZA-189 PO (02:41)
[2022-01-12] MEDS ORDERED: ATOR40TA72 PO (02:41)
[2022-01-12] MEDS ORDERED: AMLO5TAB16 PO (02:41)
[2022-01-12 02:50] LABS: ANISOCYTOSIS 1+; LARGE PLATELETS FEW; PLATELET ESTIMATE NORMAL; TOTAL CELLS COUNTED 100
[2022-01-12 03:22] LABS: HEMOGLOBIN A1C 6.5 % (4.5-6.2)
--- NOTE | 2022-01-12 06:03 | NUR ---
MILLINER HELPER CALLED AND ASKED TO HAVE A CONSENT SIGNED FOR DIGITAL COMMENTATOR.
--- NOTE | 2022-01-12 06:14 | NUR ---
CALLED MARKET RISK ANALYST PER MOHIT TO GET PT READY FOR MARKET RISK ANALYST.
[2022-01-12] MEDS ORDERED: verapamil 2.5 mg/ml inj IV ONE (06:34)
[2022-01-12] MEDS ORDERED: fentaNYL/PF 50MCG/1 ML 2ML syringe ONE (06:34)
[2022-01-12] MEDS ORDERED: midazolam 1 mg/ML 2ml injection ONE (06:34)
[2022-01-12] MEDS ORDERED: iohexol 350MG/ML 100ml bottle IV ONE (06:35)
[2022-01-12] MEDS ORDERED: nitroGLYCERIN-Tridil 50MG/D5W 250 ML IV ONE (06:35)
[2022-01-12] MEDS ORDERED: heparin 1,000unit/ml 10ml vial 10 ML ONE (06:35)
--- NOTE | 2022-01-12 06:52 | NUR ---
RECEIVED REPORT FROM NOCS OMARI SOLIS, REPORT PASSED ON TO OMARI NIX WHOM IS TAKING PT UP TO TRAVEL PROFESSIONAL.
[2022-01-12] MEDS ORDERED: ticagrelor 90mg tablet ONE (07:57)
[2022-01-12] MEDS ORDERED: clopidogrel 75mg tablet PO SCH ×2 (08:00)
[2022-01-12] MEDS ORDERED: metoprolol tartrate 50mg tablet PO SCH (08:00)
[2022-01-12] MEDS ORDERED: ONDANSETRON HCL 4 MG PO SCH (08:00)
--- NOTE | 2022-01-12 08:50 | NUR ---
Patient in room CICU 2007. I have received report from OMARI NIX, and had the opportunity to ask questions and assume patient care.
[2022-01-12 09:30] LABS: CHOL/HDL RATIO 2.1 (0.00-4.99); CHOLESTEROL 107 MG/DL (0-200); HDL CHOLESTEROL 50 MG/DL (35-60); LDL CHOLESTEROL 39 MG/DL (50-100); TRIGLYCERIDES 70 MG/DL (20-135)
[2022-01-12] MEDS: aspirin 81mg tab.chew PO SCH (10:11)
[2022-01-12] MEDS: calcium acetate 667mg (PhosLO) capsule PO SCH ×3 (10:12→21:02)
[2022-01-12] MEDS: atorvastatin 20mg tablet PO SCH (10:12)
[2022-01-12] MEDS: pantoprazole 40mg Tablet.DR PO SCH (10:13)
--- NOTE | 2022-01-12 10:43 | NUR ---
PAGE SENT 2006, LUZ VIRK, CRITICAL LABS: PTT 102, TROPS 67, 128. THANK YOU, WILL Herrera [phone]
--- NOTE | 2022-01-12 10:54 | NUR ---
HEPARIN STOPPED AT 10:45, WILL START AT 12:45 AT A DECREASED RATE. PT C/O / CP, PA, KRYSTA NOTIFIED. ORDERS TO FOLLOW HEPARIN PROTOCOL.
[2022-01-12] MEDS: topiramate 25mg tablet PO SCH ×2 (10:58→21:04)
[2022-01-12] MEDS: cyclobenzaprine 10mg tablet PO SCH ×2 (10:59→20:00)
[2022-01-12] MEDS: FLUoxetine 20mg capsule PO SCH (11:00)
--- NOTE | 2022-01-12 11:00 | NUR ---
HEPARIN STARTED AT 1,000UNITS PER PASETH.
[2022-01-12] MEDS: metoprolol tartrate 12.5mg (1/2 tablet) PO SCH ×2 (11:09→21:01)
[2022-01-12] MEDS: oxyCODONE IR 5mg (immed. release) tablet PO PRN (12:34)
[2022-01-12] MEDS ORDERED: normal saline 1000ml 250 ML IV PRN (12:50)
[2022-01-12] MEDS ORDERED: LIDOcaine 1% (10mg/ml) 2ml vial SQ ONE (12:50)
[2022-01-12] MEDS ORDERED: EPOETIN ALFA-EPBX 20,000 UNIT/ML 1 ML MDV IV ONE (12:50)
[2022-01-12] MEDS ORDERED: normal saline 1000ml 100 ML IV PRN (12:50)
[2022-01-12] MEDS ORDERED: diphenhydrAMINE 50 mg/ml inj IM ONE (13:20)
[2022-01-12] MEDS ORDERED: ondansetron/PF 4mg/2ml inj IV ONE (13:20)
[2022-01-12] MEDS: ondansetron/PF 4mg/2ml inj IV PRN ×2 (13:38→19:13)
[2022-01-12] MEDS: nitroGLYCERIN 0.4mg SUBLingual tab SL PRN (13:50)
--- NOTE | 2022-01-12 14:04 | NUR ---
PAGE SENT 5812, LUZ VIRK C/O CHEST PAIN/PRESSURE, BP 131/69, HR 92, 1 TAB NITRO GIVEN AND REPORTED EFFECTIVE. THANK YOU, WILL Herrera [phone]
[2022-01-12] MEDS: morphine 2 MG/ML inj. syringe IV PRN ×2 (15:02→19:44)
[2022-01-12] MEDS: nitroGLYCERIN 0.4mg/hour patch TD SCH (17:04)
--- NOTE | 2022-01-12 17:44 | NUR ---
PT C/O CHEST PAIN/PRESSURE. DR. RUEDA ORDERED: ATIVAN 0.5MG PO, Q6HR, PRN FOR ANXIETY, CONTINUE THE HEPARIN, KEEP THE SHEATH IN PLACE. TROPONIN CHECKED IN THE MORNING AND AN EKG.
[2022-01-12] MEDS: LORazepam 0.5 MG tablet PO PRN (19:38)
[2022-01-12] MEDS: docusate sod 100mg capsule PO SCH (21:03)
[2022-01-12] MEDS: ticagrelor 90mg tablet PO SCH (21:04)
[2022-01-13] VITALS (21 sets, daily range): BP systolic 87–132; BP diastolic 54–78
[2022-01-13] MEDS: oxyCODONE IR 5mg (immed. release) tablet PO PRN ×2 (00:41→20:43)
[2022-01-13 01:50] LABS: BASOPHILS # (AUTO) 0.1 X10'3 (0-0.2); BASOPHILS % (AUTO) 0.3 % (0-1); EOSINOPHILS # (AUTO) 0.1 X10'3 (0-0.9); EOSINOPHILS % (AUTO) 0.3 % (0-6); HEMATOCRIT 31.2 % (35.0-45.0); HEMOGLOBIN 9.9 g/dl (12.0-16.0); LYMPHOCYTES % (AUTO) 5.7 % (21-51); MEAN CORPUSCULAR HEMOGLOBIN 25.9 PG (27.0-31.0); MEAN CORPUSCULAR HGB CONC 31.7 g/dL (33.0-36.5); MEAN CORPUSCULAR VOLUME 81.7 FL (78-98); MONOCYTES # (AUTO) 1.6 X10'3 (0-0.9); MONOCYTES % (AUTO) 9.1 % (2-12); NEUTROPHILS % (AUTO) 84.6 % (42-75); PLATELET COUNT 260 X10'3 (140-440); RED BLOOD COUNT 3.82 X10'6 (4.20-5.60); RED CELL DISTRIBUTION WIDTH 16.2 % (11.5-14.5); WHITE BLOOD COUNT 17.7 X10'3 (4.5-11.0)
[2022-01-13 02:06] LABS: ALANINE AMINOTRANSFERASE 24 U/L (12-78); ALBUMIN 2.4 G/DL (3.4-5.0); ALBUMIN/GLOBULIN RATIO 0.5 (1.1-1.5); ALKALINE PHOSPHATASE 136 IU/L (46-116); ANION GAP 12 (8-16); ASPARTATE AMINO TRANSFERASE 119 U/L (10-37); BILIRUBIN,TOTAL 0.4 MG/DL (0.1-1.0); BLOOD UREA NITROGEN 29 MG/DL (7-18); BUN/CREATININE RATIO 6.4 (6.6-38.0); CALCIUM 8.5 MG/DL (8.5-10.1); CHLORIDE 93 MMOL/L (99-107); CREATININE 4.56 MG/DL (0.40-0.90); GLUCOSE 183 MG/DL (70-104); POTASSIUM 4.5 MMOL/L (3.5-5.1); SODIUM 132 MMOL/L (135-145); TOTAL CARBON DIOXIDE 27.3 MMOL/L (24-32); TOTAL PROTEIN 6.8 G/DL (6.4-8.2); eGFR 10 ML/MIN
--- NOTE | 2022-01-13 03:52 | NUR ---
Spoke to Dr. Randle regarding pt have an increase in st elevation on the ekg, 12 lead ekg preformed and reviewed with MD, reviwed that pts cardiac enzymes are trending down yet pt continues to have nausea and needs Zofran to treat the nausea, no new orders at this time. Dr Randle stated he will be in after a while to evaluate pt.
[2022-01-13] MEDS: heparin 25,000 UNIT/250ml bag 250 ML IV SCH (04:00)
[2022-01-13] MEDS: cefTRIAXone 1g/NS 100ml IVPB 100 ML IV SCH (08:29)
[2022-01-13] MEDS: cyclobenzaprine 10mg tablet PO SCH ×2 (08:29→19:31)
[2022-01-13] MEDS: nitroGLYCERIN 0.4mg/hour patch TD SCH (08:30)
[2022-01-13] MEDS: calcium acetate 667mg (PhosLO) capsule PO SCH ×3 (08:30→20:42)
[2022-01-13] MEDS: metoprolol tartrate 12.5mg (1/2 tablet) PO SCH ×2 (08:30→19:31)
[2022-01-13] MEDS: topiramate 25mg tablet PO SCH ×2 (08:31→19:31)
[2022-01-13] MEDS: ticagrelor 90mg tablet PO SCH ×2 (08:31→19:31)
[2022-01-13] MEDS: pantoprazole 40mg Tablet.DR PO SCH (08:31)
[2022-01-13] MEDS: aspirin 81mg tab.chew PO SCH (08:31)
[2022-01-13] MEDS: atorvastatin 20mg tablet PO SCH (08:31)
[2022-01-13] MEDS: FLUoxetine 20mg capsule PO SCH (08:36)
[2022-01-13] MEDS: ondansetron/PF 4mg/2ml inj IV PRN ×2 (09:41→18:56)
[2022-01-13] MEDS ORDERED: fentaNYL/PF 50MCG/1 ML 2ML syringe ONE (11:19)
[2022-01-13] MEDS ORDERED: midazolam 1 mg/ML 2ml injection ONE (11:19)
[2022-01-13] MEDS ORDERED: heparin 1,000unit/ml 10ml vial 10 ML ONE (11:19)
[2022-01-13] MEDS ORDERED: iohexol 350MG/ML 100ml bottle IV ONE (11:20)
[2022-01-13] MEDS ORDERED: nitroGLYCERIN-Tridil 50MG/D5W 250 ML IV ONE (11:26)
[2022-01-13] MEDS: morphine 2 MG/ML inj. syringe IV PRN ×3 (15:06→23:10)
[2022-01-13] MEDS: LORazepam 0.5 MG tablet PO PRN (19:31)
[2022-01-13] MEDS: docusate sod 100mg capsule PO SCH (21:00)
[2022-01-14] VITALS (19 sets, daily range): BP systolic 84–156; BP diastolic 40–92
[2022-01-14] MEDS: normal saline 1000ml 1,000 ML IV SCH (00:50)
[2022-01-14] MEDS: morphine 2 MG/ML inj. syringe IV PRN ×2 (01:59→05:53)
[2022-01-14] MEDS: ondansetron/PF 4mg/2ml inj IV PRN ×2 (02:06→17:03)
[2022-01-14] MEDS ORDERED: docusate sod 100mg capsule PO SCH (05:33)
--- NOTE | 2022-01-14 06:30 | NUR ---
Patient in room CICU 2006. I have received report from OMARI YARBROUGH, and had the opportunity to ask questions and assume patient care.
--- NOTE | 2022-01-14 06:37 | NUR ---
Patient in room CICU 2006. I have received report from OMARI YARBROUGH, and had the opportunity to ask questions and assume patient care.
[2022-01-14 07:03] LABS: BASOPHILS # (AUTO) 0.1 X10'3 (0-0.2); EOSINOPHILS # (AUTO) 0.3 X10'3 (0-0.9); LYMPHOCYTES # (AUTO) 1.4 X10'3 (1.1-4.8); LYMPHOCYTES % (AUTO) 9.4 % (21-51); MONOCYTES # (AUTO) 1.4 X10'3 (0-0.9); NEUTROPHILS % (AUTO) 78.6 % (42-75)
[2022-01-14 07:05] LABS: BASOPHILS % (AUTO) 0.5 % (0-1); EOSINOPHILS % (AUTO) 2.2 % (0-6); HEMATOCRIT 30.1 % (35.0-45.0); HEMOGLOBIN 9.4 g/dl (12.0-16.0); MEAN CORPUSCULAR HEMOGLOBIN 26.1 PG (27.0-31.0); MEAN CORPUSCULAR HGB CONC 31.4 g/dL (33.0-36.5); MEAN CORPUSCULAR VOLUME 83.1 FL (78-98); MEAN PLATELET VOLUME 9.5 FL (7.4-10.4); MONOCYTES % (AUTO) 9.3 % (2-12); NEUTROPHILS # (AUTO) 12.1 X10'3 (1.8-7.7); PLATELET COUNT 243 X10'3 (140-440); RED BLOOD COUNT 3.62 X10'6 (4.20-5.60); RED CELL DISTRIBUTION WIDTH 16.6 % (11.5-14.5); WHITE BLOOD COUNT 15.3 X10'3 (4.5-11.0)
[2022-01-14 07:25] LABS: ALANINE AMINOTRANSFERASE 23 U/L (12-78); ALBUMIN 2.5 G/DL (3.4-5.0); ALBUMIN/GLOBULIN RATIO 0.5 (1.1-1.5); ALKALINE PHOSPHATASE 152 IU/L (46-116); ANION GAP 15 (8-16); ASPARTATE AMINO TRANSFERASE 55 U/L (10-37); BILIRUBIN,TOTAL 0.4 MG/DL (0.1-1.0); BLOOD UREA NITROGEN 52 MG/DL (7-18); CALCIUM 8.9 MG/DL (8.5-10.1); CHLORIDE 93 MMOL/L (99-107); CREATININE 6.53 MG/DL (0.40-0.90); GLUCOSE 130 MG/DL (70-104); POTASSIUM 5.6 MMOL/L (3.5-5.1); SODIUM 131 MMOL/L (135-145); TOTAL CARBON DIOXIDE 22.9 MMOL/L (24-32); TOTAL PROTEIN 7.2 G/DL (6.4-8.2); eGFR 7 ML/MIN
[2022-01-14] MEDS: cefTRIAXone 1g/NS 100ml IVPB 100 ML IV SCH (07:39)
[2022-01-14] MEDS: cyclobenzaprine 10mg tablet PO SCH ×2 (07:55→21:41)
[2022-01-14] MEDS: calcium acetate 667mg (PhosLO) capsule PO SCH ×3 (07:55→21:32)
[2022-01-14] MEDS: aspirin 81mg tab.chew PO SCH (07:55)
[2022-01-14] MEDS: FLUoxetine 20mg capsule PO SCH (07:55)
[2022-01-14] MEDS: topiramate 25mg tablet PO SCH ×2 (07:55→21:33)
[2022-01-14] MEDS: ticagrelor 90mg tablet PO SCH ×2 (07:56→21:32)
[2022-01-14] MEDS: atorvastatin 20mg tablet PO SCH (07:56)
[2022-01-14] MEDS: metoprolol tartrate 12.5mg (1/2 tablet) PO SCH (07:57)
[2022-01-14] MEDS: pantoprazole 40mg Tablet.DR PO SCH (07:57)
[2022-01-14] MEDS: nitroGLYCERIN 0.4mg/hour patch TD SCH (07:58)
[2022-01-14 08:00] LABS: CHOL/HDL RATIO 3.1 (0.00-4.99); CHOLESTEROL 113 MG/DL (0-200); HDL CHOLESTEROL 36 MG/DL (35-60); LDL CHOLESTEROL 30 MG/DL (50-100); TRIGLYCERIDES 145 MG/DL (20-135)
[2022-01-14] MEDS ORDERED: LIDOcaine 1% (10mg/ml) 2ml vial SQ ONE (08:00)
[2022-01-14] MEDS ORDERED: normal saline 1000ml 250 ML IV PRN (08:00)
[2022-01-14] MEDS ORDERED: heparin 1,000 units/ml 10ml inj IV ONE (08:00)
[2022-01-14] MEDS ORDERED: EPOETIN ALFA-EPBX 20,000 UNIT/ML 1 ML MDV IV ONE (08:00)
[2022-01-14] MEDS ORDERED: diphenhydrAMINE 50 mg/ml inj IV ONE (09:05)
[2022-01-14] MEDS ORDERED: ondansetron/PF 4mg/2ml inj IM ONE (09:05)
--- NOTE | 2022-01-14 11:54 | NUR ---
DR. RUEDA CONTACTED BY ANNIE CONCERNING PT'S EKG. DR. RUEDA PHONED WITH ORDERS: 1.) PT EVAL AND TREATMENT 2.) TRANSFER PT TO PCU, CONTINUE ORDERS 3.) TRANSFER CARE TO DR. ARRIAGA 4.) EKG 01/15/33
[2022-01-14 12:07] LABS: HBSAG SCREEN Negative (Negative)
--- NOTE | 2022-01-14 12:07 | NUR ---
RECEIVED PHONE CALL FROM DR. ARRIAGA. SHE AGREES TO ASSUME CARE OF THE PT.
--- NOTE | 2022-01-14 12:58 | NUR ---
ORDERS RECEIVED FROM DR. RUEDA: D/C METOPROLOL, MORPHINE, NITROGLYCERIN PATCH. START COREG 3.125MG PO BID 01/15 2000, START LOSARTAN 25MG PO DAILY AT NOON, HOLD MEDS IF SBP <100.
[2022-01-14] MEDS ORDERED: INDOMETHACIN 75 MG PO SCH (14:10)
[2022-01-14] MEDS ORDERED: indomethacin 25mg capsule PO SCH (14:28)
--- NOTE | 2022-01-14 15:20 | NUR ---
Problems reprioritized. Patient report given, questions answered & plan of care reviewed with OMARI AGGARWAL.
--- NOTE | 2022-01-14 15:30 | NUR ---
Patient in room PCU 3022. I have received report from WILL SALCIDO and had the opportunity to ask questions and assume patient care.
[2022-01-14] MEDS: oxyCODONE IR 5mg (immed. release) tablet PO PRN ×2 (16:07→21:40)
--- NOTE | 2022-01-14 18:30 | NUR ---
Patient in room PCU 3022. I have received report from evelio and had the opportunity to ask questions and assume patient care..
--- NOTE | 2022-01-14 18:31 | NUR ---
Problems reprioritized. Patient report given, questions answered & plan of care reviewed with ADRIANNE PALAFOX.
[2022-01-14] MEDS: apixaban 5mg tablet PO SCH (21:33)
[2022-01-14] MEDS: carVEDilol 3.125mg tablet PO SCH (21:34)
[2022-01-15 02:00] VITALS: BP 141/83
--- NOTE | 2022-01-15 04:02 | NUR ---
AGREE WITH DIRECTOR STERILE PROCESSING PHYSICAL ASSESSMENT CHARTED
[2022-01-15] MEDS: oxyCODONE IR 5mg (immed. release) tablet PO PRN (05:47)
[2022-01-15 06:00] VITALS: BP 148/82
[2022-01-15 06:32] LABS: BASOPHILS % (AUTO) 0.3 % (0-1); EOSINOPHILS # (AUTO) 0.3 X10'3 (0-0.9); HEMATOCRIT 26.9 % (35.0-45.0); HEMOGLOBIN 8.6 g/dl (12.0-16.0); LYMPHOCYTES # (AUTO) 1.2 X10'3 (1.1-4.8); MEAN CORPUSCULAR HEMOGLOBIN 26.2 PG (27.0-31.0); MEAN CORPUSCULAR HGB CONC 31.9 g/dL (33.0-36.5); MEAN CORPUSCULAR VOLUME 82.2 FL (78-98); MEAN PLATELET VOLUME 9.4 FL (7.4-10.4); MONOCYTES # (AUTO) 1.1 X10'3 (0-0.9); MONOCYTES % (AUTO) 10.8 % (2-12); NEUTROPHILS # (AUTO) 7.4 X10'3 (1.8-7.7); NEUTROPHILS % (AUTO) 73.9 % (42-75); PLATELET COUNT 225 X10'3 (140-440); RED BLOOD COUNT 3.27 X10'6 (4.20-5.60); RED CELL DISTRIBUTION WIDTH 16.3 % (11.5-14.5)
[2022-01-15 06:44] LABS: ALANINE AMINOTRANSFERASE 186 U/L (12-78); ALBUMIN 2.4 G/DL (3.4-5.0); ALBUMIN/GLOBULIN RATIO 0.5 (1.1-1.5); ALKALINE PHOSPHATASE 211 IU/L (46-116); ANION GAP 16 (8-16); ASPARTATE AMINO TRANSFERASE 364 U/L (10-37); BILIRUBIN,TOTAL 0.5 MG/DL (0.1-1.0); BLOOD UREA NITROGEN 38 MG/DL (7-18); BUN/CREATININE RATIO 8.8 (6.6-38.0); CALCIUM 8.6 MG/DL (8.5-10.1); CHLORIDE 97 MMOL/L (99-107); CREATININE 4.32 MG/DL (0.40-0.90); GLUCOSE 112 MG/DL (70-104); POTASSIUM 4.5 MMOL/L (3.5-5.1); SODIUM 137 MMOL/L (135-145); TOTAL CARBON DIOXIDE 23.6 MMOL/L (24-32); TOTAL PROTEIN 6.9 G/DL (6.4-8.2); eGFR 11 ML/MIN
[2022-01-15] MEDS: pantoprazole 40mg Tablet.DR PO SCH (09:04)
[2022-01-15] MEDS: apixaban 5mg tablet PO SCH (09:05)
[2022-01-15] MEDS: cyclobenzaprine 10mg tablet PO SCH (09:05)
[2022-01-15] MEDS: calcium acetate 667mg (PhosLO) capsule PO SCH (09:06)
[2022-01-15] MEDS: topiramate 25mg tablet PO SCH (09:06)
[2022-01-15] MEDS: carVEDilol 3.125mg tablet PO SCH (09:06)
[2022-01-15] MEDS: FLUoxetine 20mg capsule PO SCH (09:07)
[2022-01-15] MEDS: atorvastatin 20mg tablet PO SCH (09:07)
[2022-01-15] MEDS: ticagrelor 90mg tablet PO SCH (09:07)
[2022-01-15] MEDS: aspirin 81mg tab.chew PO SCH (09:07)
[2022-01-15] MEDS: ondansetron/PF 4mg/2ml inj IV PRN (09:10)
[2022-01-15] MEDS: cefTRIAXone 1g/NS 100ml IVPB 100 ML IV SCH (09:11)
[2022-01-15 11:00] VITALS: BP 122/74
[2022-01-15] MEDS ORDERED: TICA90TA PO (11:44)
[2022-01-15] MEDS ORDERED: LOSA50TA64 PO (11:44)
[2022-01-15] MEDS ORDERED: APIX5TAB3 PO (11:57)
[2022-01-15] MEDS ORDERED: losartan 50mg tablet PO SCH (12:00)
--- NOTE | 2022-01-15 13:52 | NUR ---
Pt discharged home with current instructions. Coupon provided for Regina. states understanding of instructions. Escorted to car via WC by ADELE.
== END 2022-01-15 13:37 | disposition home or self-care (01) | DRG 246 ==
LOC: ER 19:13 → ED HOLD 01-12 00:51 → CICU 2S 01-12 07:56 → PCU 3S 01-14 15:31
PROVIDERS: ADMIT Internal Medicine; ATTEND Internal Medicine
PROC: B32T1ZZ Computerized Tomography (CT Scan) of Left Pulmonary Artery using Low Osmolar Contrast (ICD-10-PCS; 2022-01-11)
PROC: B3201ZZ Computerized Tomography (CT Scan) of Thoracic Aorta using Low Osmolar Contrast (ICD-10-PCS; 2022-01-11)
PROC: B32S1ZZ Computerized Tomography (CT Scan) of Right Pulmonary Artery using Low Osmolar Contrast (ICD-10-PCS; 2022-01-11)
PROC: 027034Z Dilation of Coronary Artery, One Artery with Drug-eluting Intraluminal Device, Percutaneous Approach (ICD-10-PCS; principal; 2022-01-12)
PROC: 4A023N7 Measurement of Cardiac Sampling and Pressure, Left Heart, Percutaneous Approach (ICD-10-PCS; 2022-01-12)
PROC: B2111ZZ Fluoroscopy of Multiple Coronary Arteries using Low Osmolar Contrast (ICD-10-PCS; 2022-01-12)
PROC: B2151ZZ Fluoroscopy of Left Heart using Low Osmolar Contrast (ICD-10-PCS; 2022-01-12)
PROC: 5A1D70Z Performance of Urinary Filtration, Intermittent, Less than 6 Hours Per Day (ICD-10-PCS; 2022-01-12)
PROC: 4A023N7 Measurement of Cardiac Sampling and Pressure, Left Heart, Percutaneous Approach (ICD-10-PCS; 2022-01-13)
PROC: B2111ZZ Fluoroscopy of Multiple Coronary Arteries using Low Osmolar Contrast (ICD-10-PCS; 2022-01-13)
PROC: B2151ZZ Fluoroscopy of Left Heart using Low Osmolar Contrast (ICD-10-PCS; 2022-01-13)
PROC: 5A1D70Z Performance of Urinary Filtration, Intermittent, Less than 6 Hours Per Day (ICD-10-PCS; 2022-01-14)
DX: T82.867A Thrombosis due to cardiac prosthetic devices, implants and grafts, initial encounter (principal); N18.6 End stage renal disease; I21.3 ST elevation (STEMI) myocardial infarction of unspecified site; I13.2 Hypertensive heart and chronic kidney disease with heart failure and with stage 5 chronic kidney disease, or end stage renal disease; I31.9 Disease of pericardium, unspecified; I50.20 Unspecified systolic (congestive) heart failure; I25.110 Atherosclerotic heart disease of native coronary artery with unstable angina pectoris; E87.1 Hypo-osmolality and hyponatremia; D72.829 Elevated white blood cell count, unspecified; E10.22 Type 1 diabetes mellitus with diabetic chronic kidney disease; E10.319 Type 1 diabetes mellitus with unspecified diabetic retinopathy without macular edema; H54.8 Legal blindness, as defined in USA; E78.5 Hyperlipidemia, unspecified; R11.2 Nausea with vomiting, unspecified; Y83.8 Other surgical procedures as the cause of abnormal reaction of the patient, or of later complication, without mention of misadventure at the time of the procedure; F32.A Depression, unspecified; D63.8 Anemia in other chronic diseases classified elsewhere; M25.511 Pain in right shoulder; G89.29 Other chronic pain; K21.9 Gastro-esophageal reflux disease without esophagitis; Z79.01 Long term (current) use of anticoagulants; Z79.02 Long term (current) use of antithrombotics/antiplatelets; Z79.4 Long term (current) use of insulin; Z79.82 Long term (current) use of aspirin; Z79.899 Other long term (current) drug therapy; Z86.718 Personal history of other venous thrombosis and embolism; Z87.891 Personal history of nicotine dependence; Z99.2 Dependence on renal dialysis; Z88.8 Allergy status to other drugs, medicaments and biological substances; Y92.89 Other specified places as the place of occurrence of the external cause
CPT/HCPCS: 93306; 93458; 96361; 96374; 96375; 99285; C9606; 36415; 71045; 71275; 76937; 80053; 80061; 80305; 81001; 82553; 82948; 83036; 83605; 83880; 84145; 84484; 85007; 85025; 85347; 85610; 85730; 87040; 87340; 93005; 99152; 99153; A4620; A5120; A6213; A6258; A6402; A6449; C1725; C1751; C1760; C1769; C1874; C1894; G0257; G0378; J0696; J0780; J1200; J1644; J1815; J2060; J2250; J2270; J2405; J3010; J3490; J7030; J7050; Q4081; Q9967

== ENCOUNTER 2022-01-26 12:32 | Inpatient (IN) | payer MEDICARE, MEDICAID ==
[~2022-01-26] VITALS: Ht 165.1 cm; Wt 60.8 kg
[~2022-01-26 12:32] MED LIST changes: +ATOR40TA72 PO; -CALC668T PO; -HYDR-3972 PO; -HYDR-4069 PO; -INSU100V43 SQ; +INSU100V46 SQ; +LOSA50TA64 PO; -METO50TA17 PO; +OXYC-658 PO; +PHO667C PO; +TICA90TA PO; -TRAM1TAB7 PO; +TRAM50TA2 PO; -iohexol 350MG/ML 100ml bottle IV ONE
[2022-01-26 13:28] LABS: BASOPHILS # (AUTO) 0.1 X10'3 (0-0.2); BASOPHILS % (AUTO) 0.8 % (0-1); EOSINOPHILS # (AUTO) 0.2 X10'3 (0-0.9); HEMATOCRIT 25.8 % (35.0-45.0); LYMPHOCYTES # (AUTO) 1.4 X10'3 (1.1-4.8); LYMPHOCYTES % (AUTO) 8.8 % (21-51); MEAN CORPUSCULAR HEMOGLOBIN 25.7 PG (27.0-31.0); MEAN CORPUSCULAR HGB CONC 30.9 g/dL (33.0-36.5); MEAN PLATELET VOLUME 10.6 FL (7.4-10.4); MONOCYTES # (AUTO) 1.1 X10'3 (0-0.9); MONOCYTES % (AUTO) 6.9 % (2-12); NEUTROPHILS # (AUTO) 13.6 X10'3 (1.8-7.7); NEUTROPHILS % (AUTO) 82.5 % (42-75); PLATELET COUNT 252 X10'3 (140-440); RED BLOOD COUNT 3.11 X10'6 (4.20-5.60); RED CELL DISTRIBUTION WIDTH 17.8 % (11.5-14.5); WHITE BLOOD COUNT 16.5 X10'3 (4.5-11.0)
[2022-01-26 13:57] LABS: ANISOCYTOSIS 1+; LARGE PLATELETS FEW; PLATELET ESTIMATE NORMAL
[2022-01-26 13:58] LABS: ALANINE AMINOTRANSFERASE 296 U/L (12-78); ALBUMIN 2.6 G/DL (3.4-5.0); ALBUMIN/GLOBULIN RATIO 0.6 (1.1-1.5); ALKALINE PHOSPHATASE 226 IU/L (46-116); ANION GAP 16 (8-16); ASPARTATE AMINO TRANSFERASE 59 U/L (10-37); BILIRUBIN,TOTAL 0.7 MG/DL (0.1-1.0); BLOOD UREA NITROGEN 45 MG/DL (7-18); BUN/CREATININE RATIO 7.4 (6.6-38.0); CALCIUM 7.5 MG/DL (8.5-10.1); CHLORIDE 94 MMOL/L (99-107); CREATININE 6.12 MG/DL (0.40-0.90); GLUCOSE 115 MG/DL (70-104); SODIUM 135 MMOL/L (135-145); STOMATOCYTES 1+; TOTAL CARBON DIOXIDE 25.2 MMOL/L (24-32); TOTAL PROTEIN 6.7 G/DL (6.4-8.2); eGFR 7 ML/MIN
[2022-01-26] MEDS ORDERED: METO50TA17 PO (15:13)
[2022-01-26] MEDS ORDERED: TICA90TA2 PO (15:15)
[2022-01-26] MEDS ORDERED: APIX5TAB3 PO (15:15)
[2022-01-26] MEDS ORDERED: normal saline 500ml IV soln 500 ML IV ONE (15:20)
[2022-01-26] MEDS ORDERED: TIZA-189 PO (15:43)
[2022-01-26] MEDS ORDERED: CYCL5TAB PO (15:43)
[2022-01-26] MEDS ORDERED: LANTUS (15:43)
[2022-01-26] MEDS ORDERED: NOVLG (15:43)
[2022-01-26] MEDS ORDERED: ONDA4TAB12 PO (15:43)
[2022-01-26] MEDS ORDERED: PROM12.512 PO (15:43)
[2022-01-26] MEDS ORDERED: DOCU-22 PO (15:43)
[2022-01-26] MEDS ORDERED: FLUO40CA PO (15:43)
[2022-01-26] MEDS ORDERED: FURO80TA3 PO (15:43)
[2022-01-26] MEDS ORDERED: LOSA25TA96 PO (15:46)
[2022-01-26] MEDS ORDERED: LORA10TA7 PO (15:48)
[2022-01-26] MEDS ORDERED: HYDROcodone/acetaminophen 10/325mg tab PO ONE (18:50)
[2022-01-26] MEDS ORDERED: ondansetron 4mg rapidly disintigrating tab PO ONE (19:00)
[2022-01-26] MEDS ORDERED: magnesium 2GM in 50ml NS 50 ML IV PRN (21:15)
[2022-01-26] MEDS ORDERED: magnesium Cl slow-release 64mg tablet PO PRN (21:15)
[2022-01-26] MEDS ORDERED: HYDROcodone/acetaminophen 5mg/325mg tablet PO PRN (21:15)
[2022-01-26] MEDS ORDERED: potassium CL 10mEq/100ml bag 100 ML IV PRN (21:15)
[2022-01-26] MEDS ORDERED: DEXTROSE 15 GM of carb/4 tabs (each vial/BOTTLE has 4 tablets) PO PRN ×2 (21:15)
[2022-01-26] MEDS ORDERED: MESSAGE TO PHARMACY PO ONE (21:15)
[2022-01-26] MEDS ORDERED: glucagon, human recombinant 1mg kit SUBCUT PRN (21:15)
[2022-01-26] MEDS ORDERED: magnesium 4gm in 100ml NS 100 ML IV PRN (21:15)
[2022-01-26] MEDS ORDERED: acetaminophen 325mg tablet PO PRN ×2 (21:15)
[2022-01-26] MEDS ORDERED: dextrose 50%-water 50ml dispensing syringe IV PRN ×2 (21:15)
[2022-01-26] MEDS ORDERED: insulin Lispro (HumaLOG) vial - multi-dose SQ SCH (21:15)
[2022-01-26] MEDS ORDERED: POTASSIUM BICARB 20meq eff tab 20 MEQ TABLET.EFF PO PRN ×2 (21:15)
[2022-01-26] MEDS ORDERED: magnesium hydroxide 30ml (MOM) UD suspension PO PRN (21:15)
[2022-01-26] MEDS ORDERED: mag hydrox/Alum hydrox/simeth 30ml oral suspension PO PRN (21:15)
[2022-01-26 22:18] LABS: MAGNESIUM 1.9 MG/DL (1.5-2.4); POTASSIUM 5.9 MMOL/L (3.5-5.1)
[2022-01-26 22:20] VITALS: BP 113/65
[2022-01-26] MEDS: ondansetron/PF 4mg/2ml inj IV PRN (22:41)
[2022-01-26] MEDS: HYDROcodone/acetaminophen 10/325mg tab PO PRN (22:42)
[2022-01-27] VITALS (13 sets, daily range): BP systolic 98–149; BP diastolic 48–87
[2022-01-27] MEDS ORDERED: proMETHazine 25mg tablet PO PRN (00:25)
[2022-01-27] MEDS ORDERED: loratadine 10mg tablet PO PRN (00:25)
[2022-01-27] MEDS ORDERED: tizanidine 4mg tablet PO PRN (00:25)
[2022-01-27 06:58] LABS: BASOPHILS # (AUTO) 0.1 X10'3 (0-0.2); BASOPHILS % (AUTO) 0.6 % (0-1); EOSINOPHILS % (AUTO) 0.4 % (0-6); HEMATOCRIT 24.2 % (35.0-45.0); HEMOGLOBIN 7.6 g/dl (12.0-16.0); LYMPHOCYTES # (AUTO) 1.4 X10'3 (1.1-4.8); LYMPHOCYTES % (AUTO) 12.5 % (21-51); MEAN CORPUSCULAR HGB CONC 31.6 g/dL (33.0-36.5); MEAN CORPUSCULAR VOLUME 82.1 FL (78-98); MEAN PLATELET VOLUME 10.9 FL (7.4-10.4); MONOCYTES # (AUTO) 1.1 X10'3 (0-0.9); MONOCYTES % (AUTO) 9.5 % (2-12); NEUTROPHILS # (AUTO) 8.7 X10'3 (1.8-7.7); PLATELET COUNT 241 X10'3 (140-440); RED BLOOD COUNT 2.94 X10'6 (4.20-5.60); RED CELL DISTRIBUTION WIDTH 17.7 % (11.5-14.5); WHITE BLOOD COUNT 11.3 X10'3 (4.5-11.0)
[2022-01-27 07:23] LABS: ALBUMIN 2.5 G/DL (3.4-5.0); ALBUMIN/GLOBULIN RATIO 0.6 (1.1-1.5); ALKALINE PHOSPHATASE 217 IU/L (46-116); ANION GAP 10 (8-16); BILIRUBIN,TOTAL 0.7 MG/DL (0.1-1.0); BLOOD UREA NITROGEN 56 MG/DL (7-18); BUN/CREATININE RATIO 8.1 (6.6-38.0); CALCIUM 7.2 MG/DL (8.5-10.1); CHLORIDE 98 MMOL/L (99-107); CREATININE 6.91 MG/DL (0.40-0.90); GLUCOSE 95 MG/DL (70-104); MAGNESIUM 1.9 MG/DL (1.5-2.4); POTASSIUM 5.4 MMOL/L (3.5-5.1); SODIUM 134 MMOL/L (135-145); TOTAL CARBON DIOXIDE 25.7 MMOL/L (24-32); TOTAL PROTEIN 6.5 G/DL (6.4-8.2); eGFR 6 ML/MIN
[2022-01-27 07:32] LABS: ANISOCYTOSIS 1+; HYPOCHROMASIA 1+; LARGE PLATELETS FEW; MICROCYTOSIS 1+; PLATELET ESTIMATE NORMAL; POLYCHROMASIA FEW; STOMATOCYTES 5; TARGET CELLS FEW
[2022-01-27] MEDS: calcium acetate 667mg (PhosLO) capsule PO SCH ×3 (07:47→21:13)
[2022-01-27] MEDS: FLUoxetine 20mg capsule PO SCH (07:47)
[2022-01-27] MEDS: apixaban 5mg tablet PO SCH ×2 (07:47→21:13)
[2022-01-27] MEDS: pantoprazole 40mg Tablet.DR PO SCH (07:47)
[2022-01-27] MEDS: docusate sod 100mg capsule PO SCH ×3 (07:48→21:00)
[2022-01-27] MEDS: cyclobenzaprine 10mg tablet PO SCH ×2 (07:48→21:12)
[2022-01-27] MEDS: ticagrelor 90mg tablet PO SCH ×2 (07:48→21:12)
[2022-01-27] MEDS: aspirin 81mg tab.chew PO SCH (07:48)
[2022-01-27] MEDS: topiramate 25mg tablet PO SCH ×2 (07:49→21:13)
[2022-01-27] MEDS ORDERED: heparin, porcine 5000 units/ml vial SQ SCH (08:00)
[2022-01-27] MEDS: K and/or MAG REPLACEMENT MC SCH ×2 (08:00→20:00)
[2022-01-27 08:10] LABS: ALANINE AMINOTRANSFERASE 1648 U/L (12-78)
[2022-01-27 08:15] LABS: ASPARTATE AMINO TRANSFERASE 3669 U/L (10-37)
[2022-01-27] MEDS: HYDROcodone/acetaminophen 10/325mg tab PO PRN ×3 (09:12→21:11)
[2022-01-27] MEDS: DOBUTamine-DoBUTrex 500mg/D5W 250 ML IV SCH (19:07)
[2022-01-27] MEDS: insulin glargine (Lantus) pen - multi-dose SQ SCH ×2 (21:00)
[2022-01-28] VITALS (8 sets, daily range): BP systolic 101–138; BP diastolic 57–99
--- NOTE | 2022-01-28 00:42 | NUR ---
Stat K lab ordered on patient. 3 RNs attempted to draw Stat lab on patient but unsuccessful. Patient hard stick. RN called down to the ED to get another RN to try. ED said RN will be here in a few minutes to try lab draw
[2022-01-28] MEDS: oxyCODONE IR 5mg (immed. release) tablet PO PRN ×4 (00:52→21:58)
--- NOTE | 2022-01-28 06:28 | NUR ---
Change of Shift report given to OMARI Camarena. Issues reprioritized. pt stable. Dobutamine drip @5 ongoing. Another lab draw attempt by hvac r tech unsuccessful. Patient is a super hard stick. RN Betty willing to try in a few. Communicated this to OMARI Camarena.
--- NOTE | 2022-01-28 06:44 | NUR ---
Patient in room PCU 3027. I have received report from [place] SALCIDO and had the opportunity to ask questions and assume patient care.
[2022-01-28] MEDS: K and/or MAG REPLACEMENT MC SCH ×2 (08:00→20:00)
[2022-01-28] MEDS: aspirin 81mg tab.chew PO SCH (08:00)
[2022-01-28] MEDS: FLUoxetine 20mg capsule PO SCH (08:27)
[2022-01-28] MEDS: ticagrelor 90mg tablet PO SCH ×2 (08:27→19:53)
[2022-01-28] MEDS: docusate sod 100mg capsule PO SCH ×3 (08:28→21:57)
[2022-01-28] MEDS: apixaban 5mg tablet PO SCH ×2 (08:28→19:53)
[2022-01-28] MEDS: cyclobenzaprine 10mg tablet PO SCH ×2 (08:29→19:54)
[2022-01-28] MEDS: topiramate 25mg tablet PO SCH ×2 (08:29→19:54)
[2022-01-28] MEDS: pantoprazole 40mg Tablet.DR PO SCH (08:29)
[2022-01-28] MEDS: calcium acetate 667mg (PhosLO) capsule PO SCH ×3 (08:30→21:56)
[2022-01-28 09:00] LABS: BASOPHILS # (AUTO) 0.1 X10'3 (0-0.2); BASOPHILS % (AUTO) 1.6 % (0-1); EOSINOPHILS # (AUTO) 0.2 X10'3 (0-0.9); EOSINOPHILS % (AUTO) 2.6 % (0-6); HEMATOCRIT 25.3 % (35.0-45.0); LYMPHOCYTES # (AUTO) 1.3 X10'3 (1.1-4.8); LYMPHOCYTES % (AUTO) 15.4 % (21-51); MEAN CORPUSCULAR HEMOGLOBIN 26.4 PG (27.0-31.0); MEAN CORPUSCULAR HGB CONC 31.8 g/dL (33.0-36.5); MEAN CORPUSCULAR VOLUME 83.2 FL (78-98); MEAN PLATELET VOLUME 10.9 FL (7.4-10.4); MONOCYTES # (AUTO) 0.7 X10'3 (0-0.9); MONOCYTES % (AUTO) 8.1 % (2-12); NEUTROPHILS # (AUTO) 6.2 X10'3 (1.8-7.7); NEUTROPHILS % (AUTO) 72.3 % (42-75); PLATELET COUNT 238 X10'3 (140-440); RED BLOOD COUNT 3.04 X10'6 (4.20-5.60); RED CELL DISTRIBUTION WIDTH 17.5 % (11.5-14.5); WHITE BLOOD COUNT 8.6 X10'3 (4.5-11.0)
[2022-01-28 09:22] LABS: % IRON SATURATION 86 % (11-46); ANISOCYTOSIS 1+; IRON 107 UG/DL (49-151); LARGE PLATELETS FEW; PLATELET ESTIMATE NORMAL; POIKILOCYTOSIS FEW; TOTAL IRON BINDING CAPACITY 124 UG/DL (259-388)
[2022-01-28 09:27] LABS: ALBUMIN 2.4 G/DL (3.4-5.0); ALBUMIN/GLOBULIN RATIO 0.6 (1.1-1.5); ALKALINE PHOSPHATASE 215 IU/L (46-116); ANION GAP 13 (8-16); BILIRUBIN,TOTAL 0.6 MG/DL (0.1-1.0); BLOOD UREA NITROGEN 72 MG/DL (7-18); CALCIUM 7.4 MG/DL (8.5-10.1); CHLORIDE 95 MMOL/L (99-107); CREATININE 8.04 MG/DL (0.40-0.90); GLUCOSE 95 MG/DL (70-104); POTASSIUM 4.8 MMOL/L (3.5-5.1); SODIUM 133 MMOL/L (135-145); TOTAL CARBON DIOXIDE 24.7 MMOL/L (24-32); TOTAL PROTEIN 6.3 G/DL (6.4-8.2); eGFR 5 ML/MIN
[2022-01-28 09:43] LABS: ALANINE AMINOTRANSFERASE 1375 U/L (12-78); ASPARTATE AMINO TRANSFERASE 1611 U/L (10-37)
[2022-01-28 09:56] LABS: MAGNESIUM 1.9 MG/DL (1.5-2.4)
[2022-01-28 10:29] LABS: FERRITIN 20492 NG/ML (8-252)
[2022-01-28] MEDS ORDERED: heparin 1,000unit/ml 10ml vial 10 ML IV ONE (11:00)
[2022-01-28] MEDS ORDERED: LIDOcaine 1% (10mg/ml) 2ml vial SQ ONE (11:00)
[2022-01-28] MEDS ORDERED: EPOETIN ALFA-EPBX 20,000 UNIT/ML 1 ML MDV IV ONE (11:00)
--- NOTE | 2022-01-28 11:59 | NUR ---
Dialysis Medication request PAGER ID: [phone] MESSAGE: [id number] [place] Is requesting IV Benadryl for her dialysis treatment starting in a few minutes. This has been used before during her hemodialysis sessions. Tristin Malone RN
[2022-01-28] MEDS ORDERED: diphenhydrAMINE 50 mg/ml inj IM ONE (12:00)
[2022-01-28] MEDS: ondansetron 4mg rapidly disintigrating tab PO PRN (13:56)
[2022-01-28] MEDS ORDERED: gelatin sponge, absorbable (Gelfoam-100 compressed) sponge TP ONE (17:00)
--- NOTE | 2022-01-28 19:59 | NUR ---
Please use standing scale for daily weights per Dr. Randle
[2022-01-28] MEDS: insulin glargine (Lantus) pen - multi-dose SQ SCH ×2 (21:00)
[2022-01-28] MEDS ORDERED: famotidine/PF 10 mg/ml inj IV ONE (21:10)
[2022-01-28] MEDS ORDERED: methylPREDNISolone sod succ 125mg/2ml vial IV PRN (21:10)
[2022-01-28] MEDS ORDERED: diphenhydrAMINE 50 mg/ml inj IV ONE (21:10)
[2022-01-29] MEDS: DOBUTamine-DoBUTrex 500mg/D5W 250 ML IV SCH (01:27)
[2022-01-29] MEDS: oxyCODONE IR 5mg (immed. release) tablet PO PRN ×4 (01:48→20:45)
[2022-01-29 02:00] VITALS: BP 109/73
[2022-01-29 06:30] VITALS: BP 138/79
--- NOTE | 2022-01-29 07:00 | NUR ---
Patient in room PCU 3027. I have received report from LAISHA SALCIDO and had the opportunity to ask questions and assume patient care.
--- NOTE | 2022-01-29 07:39 | NUR ---
PAGER ID: [phone] MESSAGE: ANTONIA [email or web address], LAB WAS UNABLE TO OBTAIN BLOOD FOR LABS ON , CAN I DRAW FROM IV SITE? PLEASE CALL TO LET ME KNOW THX.
--- NOTE | 2022-01-29 07:57 | NUR ---
PAGER ID: [phone] MESSAGE: ANTONIA ON TELE@[email or web address], UNABLE TO DRAW FROM PIV ON 4037L, I WILL CALL LAB TO SEE IF THEY HAVE ANYONE ELSE WHO MAY POSSIBLE BE ABLE TO ACCESS. NILTONX
[2022-01-29] MEDS: K and/or MAG REPLACEMENT MC SCH ×2 (08:00→20:00)
[2022-01-29] MEDS: aspirin 81mg tab.chew PO SCH (08:11)
[2022-01-29] MEDS: ticagrelor 90mg tablet PO SCH ×2 (08:11→19:21)
[2022-01-29] MEDS: topiramate 25mg tablet PO SCH ×2 (08:12→19:21)
[2022-01-29] MEDS: docusate sod 100mg capsule PO SCH ×3 (08:12→21:00)
[2022-01-29] MEDS: apixaban 5mg tablet PO SCH ×2 (08:12→19:21)
[2022-01-29] MEDS: calcium acetate 667mg (PhosLO) capsule PO SCH ×3 (08:13→22:17)
[2022-01-29] MEDS: pantoprazole 40mg Tablet.DR PO SCH (08:13)
[2022-01-29] MEDS: FLUoxetine 20mg capsule PO SCH (08:13)
[2022-01-29] MEDS: cyclobenzaprine 10mg tablet PO SCH ×2 (08:16→19:21)
[2022-01-29 10:50] LABS: BASOPHILS % (AUTO) 0.2 % (0-1); EOSINOPHILS % (AUTO) 0.1 % (0-6); HEMATOCRIT 25.9 % (35.0-45.0); HEMOGLOBIN 8.1 g/dl (12.0-16.0); LYMPHOCYTES # (AUTO) 0.3 X10'3 (1.1-4.8); LYMPHOCYTES % (AUTO) 3.2 % (21-51); MEAN CORPUSCULAR HEMOGLOBIN 27.2 PG (27.0-31.0); MEAN CORPUSCULAR HGB CONC 31.3 g/dL (33.0-36.5); MEAN CORPUSCULAR VOLUME 86.8 FL (78-98); MEAN PLATELET VOLUME 10.1 FL (7.4-10.4); MONOCYTES # (AUTO) 0.2 X10'3 (0-0.9); MONOCYTES % (AUTO) 1.8 % (2-12); NEUTROPHILS % (AUTO) 94.7 % (42-75); PLATELET COUNT 257 X10'3 (140-440); RED BLOOD COUNT 2.98 X10'6 (4.20-5.60); WHITE BLOOD COUNT 8.5 X10'3 (4.5-11.0)
--- NOTE | 2022-01-29 10:54 | NUR ---
PAGER ID: [phone] MESSAGE: ANTONIA ON TELE@[phone], TITA, LAB WAS ABLE TO DRAW FROM 3027A, CBC IS UP CMP STILL PENDING, THX
[2022-01-29 11:00] VITALS: BP 122/59
[2022-01-29 11:04] LABS: ALBUMIN 2.6 G/DL (3.4-5.0); ALBUMIN/GLOBULIN RATIO 0.6 (1.1-1.5); ALKALINE PHOSPHATASE 252 IU/L (46-116); ANION GAP 16 (8-16); ASPARTATE AMINO TRANSFERASE 761 U/L (10-37); BILIRUBIN,DIRECT 0.3 MG/DL (0-0.3); BILIRUBIN,TOTAL 0.7 MG/DL (0.1-1.0); BLOOD UREA NITROGEN 53 MG/DL (7-18); BUN/CREATININE RATIO 8.3 (6.6-38.0); CALCIUM 7.8 MG/DL (8.5-10.1); CHLORIDE 94 MMOL/L (99-107); CREATININE 6.36 MG/DL (0.40-0.90); GLUCOSE 235 MG/DL (70-104); MAGNESIUM 1.9 MG/DL (1.5-2.4); POTASSIUM 5.1 MMOL/L (3.5-5.1); SODIUM 129 MMOL/L (135-145); TOTAL CARBON DIOXIDE 18.8 MMOL/L (24-32); TOTAL PROTEIN 6.9 G/DL (6.4-8.2); eGFR 7 ML/MIN
[2022-01-29 11:06] LABS: ALANINE AMINOTRANSFERASE 1093 U/L (12-78)
--- NOTE | 2022-01-29 11:13 | NUR ---
PAGER ID: [phone] MESSAGE: ANTONIA ON TELE@[phone], ACCU CHECKS HAVE BEEN DC'd ON 3027A, A1C IS 6.5 ON LAST VISIT. DO YOU WANT BLOOD SUGARS CHECKED STIL? THX.
--- NOTE | 2022-01-29 12:05 | NUR ---
PATIENT UP TO B/R WITH ASSIST.
--- NOTE | 2022-01-29 13:41 | NUR ---
PAGER ID: [phone] MESSAGE: ANTONIA ON TELE@[phone], B/P ON 6578V IS SLOWLY CREEPING UP WITH DOBUTAMINE gtt. LAST TWO 140/75, AND 150/77. DO YOU WANT TO DECREASE OR DC DOBUTAMINE? THX
[2022-01-29 15:08] VITALS: BP 127/63
[2022-01-29 18:00] VITALS: BP 135/77
--- NOTE | 2022-01-29 18:06 | NUR ---
Problems reprioritized. Patient report given, questions answered & plan of care reviewed with LAISHA SALCIDO.
[2022-01-29] MEDS: ondansetron/PF 4mg/2ml inj IV PRN (19:04)
[2022-01-29] MEDS: insulin glargine (Lantus) pen - multi-dose SQ SCH ×2 (21:00→22:20)
[2022-01-30 02:00] VITALS: BP 113/71
--- NOTE | 2022-01-30 02:48 | NUR ---
pt has been bleeding from the dialysis site and iv site that was removed due to occlusion.While in her room controlling the bleeding, pt coughed out clot of blood through her mouth.MD Cerda was called ,who ordered to hold Aspirin and brilinta.
[2022-01-30] MEDS ORDERED: desmopressin inj. 20 MCG in normal saline 100ml IV soln 95 ML IV ONE (04:00)
[2022-01-30] MEDS ORDERED: albumin (human) 25% 100ml IV 100 ML IV ONE (04:00)
--- NOTE | 2022-01-30 04:48 | NUR ---
Pt's mid-line iv set by ER doctor was not infusing, so the RN was unable to start albumin 25% 100ML IV and DDAVP INJ.20mcg in sodium chloride ordered by MD Cerda. Attempts made to flush it by 3 RN's was unsuccessful.
--- NOTE | 2022-01-30 05:32 | NUR ---
MD Cerda notified about pt's situation and RN unable to start iv med.
[2022-01-30 05:54] LABS: BASOPHILS % (AUTO) 0.4 % (0-1); EOSINOPHILS % (AUTO) 0.1 % (0-6); HEMATOCRIT 25.2 % (35.0-45.0); HEMOGLOBIN 7.9 g/dl (12.0-16.0); LYMPHOCYTES % (AUTO) 8.4 % (21-51); MEAN CORPUSCULAR HEMOGLOBIN 26.3 PG (27.0-31.0); MEAN CORPUSCULAR HGB CONC 31.4 g/dL (33.0-36.5); MEAN CORPUSCULAR VOLUME 83.6 FL (78-98); MEAN PLATELET VOLUME 9.7 FL (7.4-10.4); MONOCYTES % (AUTO) 8.6 % (2-12); NEUTROPHILS # (AUTO) 9.4 X10'3 (1.8-7.7); NEUTROPHILS % (AUTO) 82.5 % (42-75); PLATELET COUNT 325 X10'3 (140-440); RED BLOOD COUNT 3.01 X10'6 (4.20-5.60); WHITE BLOOD COUNT 11.4 X10'3 (4.5-11.0)
[2022-01-30 06:00] VITALS: BP 121/84
[2022-01-30 06:04] LABS: APTT 35 SECONDS (22-32)
[2022-01-30 06:11] LABS: ALANINE AMINOTRANSFERASE 930 U/L (12-78); ALBUMIN 2.9 G/DL (3.4-5.0); ALBUMIN/GLOBULIN RATIO 0.7 (1.1-1.5); ALKALINE PHOSPHATASE 243 IU/L (46-116); ANION GAP 14 (8-16); ASPARTATE AMINO TRANSFERASE 530 U/L (10-37); BILIRUBIN,TOTAL 0.7 MG/DL (0.1-1.0); BLOOD UREA NITROGEN 63 MG/DL (7-18); BUN/CREATININE RATIO 8.4 (6.6-38.0); CHLORIDE 93 MMOL/L (99-107); CREATININE 7.46 MG/DL (0.40-0.90); GLUCOSE 123 MG/DL (70-104); MAGNESIUM 2.1 MG/DL (1.5-2.4); SODIUM 130 MMOL/L (135-145); TOTAL CARBON DIOXIDE 23.5 MMOL/L (24-32); TOTAL PROTEIN 7.1 G/DL (6.4-8.2); eGFR 6 ML/MIN
[2022-01-30] MEDS ORDERED: EPOETIN ALFA-EPBX 20,000 UNIT/ML 1 ML MDV IV ONE (07:45)
[2022-01-30] MEDS ORDERED: heparin 1,000 units/ml 10ml inj IV ONE (07:45)
[2022-01-30] MEDS ORDERED: albumin (human) 25% 100ml IV 100 ML IV PRN (07:45)
[2022-01-30] MEDS ORDERED: heparin 1,000unit/ml 10ml vial 10 ML IV ONE (07:45)
[2022-01-30] MEDS: K and/or MAG REPLACEMENT MC SCH ×2 (08:00→20:00)
[2022-01-30] MEDS: cyclobenzaprine 10mg tablet PO SCH ×2 (08:26→20:11)
[2022-01-30] MEDS: topiramate 25mg tablet PO SCH ×2 (08:26→20:11)
[2022-01-30] MEDS: FLUoxetine 20mg capsule PO SCH (08:27)
[2022-01-30] MEDS: calcium acetate 667mg (PhosLO) capsule PO SCH ×3 (08:27→17:37)
[2022-01-30] MEDS: oxyCODONE IR 5mg (immed. release) tablet PO PRN ×3 (08:27→22:32)
[2022-01-30] MEDS: pantoprazole 40mg Tablet.DR PO SCH (08:27)
[2022-01-30] MEDS: docusate sod 100mg capsule PO SCH ×3 (08:27→20:13)
--- NOTE | 2022-01-30 09:01 | NUR ---
Initial: Pt admitted w/ ESRD on HD and hypotension per EMR. Currently on Renal diet w/ avg intake 46% x 6 meals partially meeting needs. Pt could benefit from Nepro BID to assist w/ meeting needs. Currently on HD, last treatment 01/28 w/ 1.8L out per documentation. LBM 01/28 receiving routine colace. Will continue to monitor. Recs: 1. Continue Renal diet as tolerated 2. Nepro BIDBD: pending MD verification 3. Bowel care per rx 4. Scaled wts w/ HD Addendum: 01/30/22 at [address] Amended: Links added.
[2022-01-30] MEDS ORDERED: LIDOcaine 1% (10mg/ml) 2ml vial SQ ONE (10:35)
[2022-01-30 11:00] VITALS: BP 103/52
[2022-01-30] MEDS ORDERED: diphenhydrAMINE 50 mg/ml inj IM ONE (12:05)
--- NOTE | 2022-01-30 13:26 | NUR ---
DR. RUEDA'S ANSWERING SERVICE CALLED TO INFORM DR. RUEDA REGARDING BRILINTA, ASA HAS BEEN DC'D AND ELIQUIS HAS BEEN PLACED ON HOLD. AWAITING CALL FROM DR. RUEDA.
[2022-01-30] MEDS ORDERED: ticagrelor 90mg tablet PO ONE (13:45)
[2022-01-30 15:00] VITALS: BP 105/56
[2022-01-30] MEDS: NUT.TX.IMP.RENAL FXN,LAC-REDUC (Nepro) 237 ML VANILLA PO SCH (17:30)
[2022-01-30 18:00] VITALS: BP 87/55
--- NOTE | 2022-01-30 18:48 | NUR ---
Patient in room U 3027. I have received report from OMARI CANTU and had the opportunity to ask questions and assume patient care. Addendum: 01/30/22 at 1848 by Misty Grajeda RN Amended: Links added.
[2022-01-30] MEDS: carVEDilol 3.125mg tablet PO SCH (20:00)
[2022-01-30] MEDS: insulin glargine (Lantus) pen - multi-dose SQ SCH ×2 (21:00→21:32)
[2022-01-30 22:00] VITALS: BP 110/60
[2022-01-30] MEDS: ondansetron 4mg rapidly disintigrating tab PO PRN (22:32)
[2022-01-31 02:00] VITALS: BP 115/29
--- NOTE | 2022-01-31 02:20 | NUR ---
PT AWOKE FOR VITALS STARTING CRYING AND SCARED. LEFT ARM AV FISTULA CONTINUES TO HAVE SLOW OOZE OF SANGUINOUS DRESSING START OF SHIFT REINFORCED WITH PACKAGE OF 4X4 FLUFFS AND TAPED NOW 75% WITH DRAINAGE THAT DRESSING REMOVED KEEPING ORIGINAL DRESSING IN PLACE FROM DIALYSIS. NEW 4X4 FLUFF DRESSING PACKAGE WITH ABD PAD TO OOZING AV FISTULA SITE TAPED IN PLLACE. PT TEACHING DONE REGARDING PLAN FOR A FISTULA GRAM TO BE DONE TODAY. ICE CHIPS GIVE AND TEACHING DONE REGARDING GOALS AND PLAN OF CARE FOR HER. PT A LOT CALMER AFTER THIS. MEDICATED WITH OXY IR FOR HER PAIN AND ZOFRAN FOR C/O NAUSEA.
[2022-01-31] MEDS: oxyCODONE IR 5mg (immed. release) tablet PO PRN ×4 (02:37→19:42)
[2022-01-31] MEDS: ondansetron/PF 4mg/2ml inj IV PRN (02:37)
--- NOTE | 2022-01-31 04:44 | NUR ---
appears to be resting comfortably.
--- NOTE | 2022-01-31 05:48 | NUR ---
PT HAD A BLOODY NOSE LEFT NARES KEEPING KLEENEX IN IT AND HAD IT DRIO AND CLOT BACK OF HER THROAT AND SHE COUGHED IT UP.
[2022-01-31 06:00] VITALS: BP 117/35
--- NOTE | 2022-01-31 06:27 | NUR ---
Problems reprioritized. Patient report given, questions answered & plan of care reviewed with OMARI CANTU. Addendum: 01/31/22 at 0628 by Misty Grajeda RN Amended: Links added.
[2022-01-31 07:01] LABS: BASOPHILS # (AUTO) 0.1 X10'3 (0-0.2); BASOPHILS % (AUTO) 0.9 % (0-1); EOSINOPHILS # (AUTO) 0.4 X10'3 (0-0.9); EOSINOPHILS % (AUTO) 3.4 % (0-6); HEMATOCRIT 25.5 % (35.0-45.0); HEMOGLOBIN 8.2 g/dl (12.0-16.0); LYMPHOCYTES # (AUTO) 1.6 X10'3 (1.1-4.8); LYMPHOCYTES % (AUTO) 15.7 % (21-51); MEAN CORPUSCULAR HEMOGLOBIN 27.1 PG (27.0-31.0); MEAN CORPUSCULAR HGB CONC 32.2 g/dL (33.0-36.5); MEAN CORPUSCULAR VOLUME 84.1 FL (78-98); MEAN PLATELET VOLUME 9.2 FL (7.4-10.4); MONOCYTES # (AUTO) 1.1 X10'3 (0-0.9); MONOCYTES % (AUTO) 11.2 % (2-12); NEUTROPHILS # (AUTO) 7.1 X10'3 (1.8-7.7); NEUTROPHILS % (AUTO) 68.8 % (42-75); PLATELET COUNT 349 X10'3 (140-440); RED BLOOD COUNT 3.03 X10'6 (4.20-5.60); RED CELL DISTRIBUTION WIDTH 17.6 % (11.5-14.5); WHITE BLOOD COUNT 10.3 X10'3 (4.5-11.0)
[2022-01-31 07:03] LABS: ALANINE AMINOTRANSFERASE 670 U/L (12-78); ALBUMIN 2.6 G/DL (3.4-5.0); ALBUMIN/GLOBULIN RATIO 0.7 (1.1-1.5); ALKALINE PHOSPHATASE 208 IU/L (46-116); ANION GAP 11 (8-16); ASPARTATE AMINO TRANSFERASE 266 U/L (10-37); BILIRUBIN,TOTAL 0.7 MG/DL (0.1-1.0); BLOOD UREA NITROGEN 48 MG/DL (7-18); BUN/CREATININE RATIO 8.4 (6.6-38.0); CHLORIDE 98 MMOL/L (99-107); CREATININE 5.74 MG/DL (0.40-0.90); GLUCOSE 116 MG/DL (70-104); SODIUM 134 MMOL/L (135-145); TOTAL CARBON DIOXIDE 25.4 MMOL/L (24-32); TOTAL PROTEIN 6.6 G/DL (6.4-8.2); eGFR 8 ML/MIN
[2022-01-31] MEDS: NUT.TX.IMP.RENAL FXN,LAC-REDUC (Nepro) 237 ML VANILLA PO SCH ×2 (07:30→17:30)
[2022-01-31] MEDS: docusate sod 100mg capsule PO SCH ×3 (08:00→21:00)
[2022-01-31] MEDS: K and/or MAG REPLACEMENT MC SCH ×2 (08:00→19:41)
[2022-01-31] MEDS: ticagrelor 90mg tablet PO SCH ×2 (09:23→19:36)
[2022-01-31] MEDS: calcium acetate 667mg (PhosLO) capsule PO SCH ×3 (09:24→21:03)
[2022-01-31] MEDS: topiramate 25mg tablet PO SCH ×2 (09:24→19:40)
[2022-01-31] MEDS: losartan 50mg tablet PO SCH (09:26)
[2022-01-31] MEDS: FLUoxetine 20mg capsule PO SCH (09:27)
[2022-01-31] MEDS: pantoprazole 40mg Tablet.DR PO SCH (09:27)
[2022-01-31] MEDS: carVEDilol 3.125mg tablet PO SCH ×2 (09:27→20:00)
[2022-01-31] MEDS: cyclobenzaprine 10mg tablet PO SCH ×2 (09:32→19:40)
[2022-01-31 11:00] VITALS: BP 93/79
[2022-01-31] MEDS ORDERED: LIDOcaine 2% (20 mg/ml) 5ml cardiac syringe IV STA (12:26)
[2022-01-31] MEDS ORDERED: LIDOcaine 1% (10mg/ml) 2ml vial ONE (14:32)
[2022-01-31] MEDS ORDERED: gelatin sponge, absorbable (Gelfoam 100) sponge TP ONE (14:50)
[2022-01-31 15:00] VITALS: BP 149/76
[2022-01-31 19:10] VITALS: BP 126/30
--- NOTE | 2022-01-31 19:10 | NUR ---
ED MD CAME TO FLOOR AND STARTED PIV TO RIGHT AC. PIV INFILTRATED ON DAY SHIFT. PT TO HAVE TDC PLACED TODAY BY IR
[2022-01-31] MEDS: insulin glargine (Lantus) pen - multi-dose SQ SCH ×2 (21:00→21:05)
[2022-01-31 22:00] VITALS: BP 111/37
[2022-02-01] MEDS: oxyCODONE IR 5mg (immed. release) tablet PO PRN ×4 (00:10→21:13)
[2022-02-01 02:00] VITALS: BP 123/33
[2022-02-01 06:00] VITALS: BP 116/32
--- NOTE | 2022-02-01 06:38 | NUR ---
Problems reprioritized. Patient report given, questions answered & plan of care reviewed with RASHI. Addendum: 02/01/22 at 0638 by Antonio Liu RN Amended: Links added.
[2022-02-01] MEDS: NUT.TX.IMP.RENAL FXN,LAC-REDUC (Nepro) 237 ML VANILLA PO SCH ×2 (07:30→17:30)
[2022-02-01] MEDS: K and/or MAG REPLACEMENT MC SCH ×2 (08:00→20:00)
[2022-02-01] MEDS: ticagrelor 90mg tablet PO SCH ×2 (08:00→19:36)
[2022-02-01] MEDS: topiramate 25mg tablet PO SCH ×2 (08:00→19:36)
[2022-02-01] MEDS: carVEDilol 3.125mg tablet PO SCH ×2 (08:00→19:36)
[2022-02-01] MEDS: cyclobenzaprine 10mg tablet PO SCH ×2 (08:00→19:47)
[2022-02-01] MEDS: docusate sod 100mg capsule PO SCH ×3 (08:00→23:54)
[2022-02-01] MEDS ORDERED: LIDOcaine 1%/PF 5ML 10 MG/ML VIAL ONE ×2 (09:06→10:32)
[2022-02-01] MEDS ORDERED: heparin 1,000unit/ml 10ml vial 10 ML ONE (09:06)
[2022-02-01] MEDS ORDERED: fentaNYL/PF 50MCG/1 ML 2ML syringe ONE (09:07)
[2022-02-01] MEDS ORDERED: midazolam 1 mg/ML 2ml injection ONE (09:07)
[2022-02-01] MEDS ORDERED: LIDOcaine 1% W/epiNEPHrine 1:100,000 20ml vial ONE (09:11)
[2022-02-01] MEDS ORDERED: IOHEXOL 300 MG/ML 30ML INFUS..BTL IV ONE (10:23)
[2022-02-01] MEDS ORDERED: heparin 1,000unit/ml 10ml vial 10 ML IV ONE (12:05)
[2022-02-01] MEDS ORDERED: EPOETIN ALFA-EPBX 20,000 UNIT/ML 1 ML MDV IV ONE (12:05)
[2022-02-01] MEDS ORDERED: heparin 1,000 units/ml 10ml inj HE ONE ×2 (12:10)
[2022-02-01] MEDS: calcium acetate 667mg (PhosLO) capsule PO SCH ×3 (13:00→23:54)
[2022-02-01 13:43] LABS: BASOPHILS # (AUTO) 0.1 X10'3 (0-0.2); EOSINOPHILS # (AUTO) 0.5 X10'3 (0-0.9); HEMATOCRIT 25.6 % (35.0-45.0); LYMPHOCYTES # (AUTO) 1.2 X10'3 (1.1-4.8); LYMPHOCYTES % (AUTO) 12.7 % (21-51); MEAN CORPUSCULAR HGB CONC 31.4 g/dL (33.0-36.5); MEAN CORPUSCULAR VOLUME 82.9 FL (78-98); MEAN PLATELET VOLUME 8.8 FL (7.4-10.4); MONOCYTES # (AUTO) 0.8 X10'3 (0-0.9); MONOCYTES % (AUTO) 8.7 % (2-12); NEUTROPHILS # (AUTO) 6.8 X10'3 (1.8-7.7); NEUTROPHILS % (AUTO) 72.6 % (42-75); PLATELET COUNT 365 X10'3 (140-440); RED BLOOD COUNT 3.09 X10'6 (4.20-5.60); WHITE BLOOD COUNT 9.4 X10'3 (4.5-11.0)
[2022-02-01 14:26] LABS: ANISOCYTOSIS 1+; HYPOCHROMASIA 1+; LARGE PLATELETS FEW; PLATELET ESTIMATE NORMAL
[2022-02-01 14:27] LABS: TARGET CELLS FEW
[2022-02-01] MEDS: FLUoxetine 20mg capsule PO SCH (17:50)
[2022-02-01] MEDS: losartan 50mg tablet PO SCH (17:50)
[2022-02-01] MEDS: pantoprazole 40mg Tablet.DR PO SCH (17:50)
[2022-02-01 18:00] VITALS: BP 85/67
[2022-02-01] MEDS: HYDROcodone/acetaminophen 10/325mg tab PO PRN ×2 (18:56→23:29)
[2022-02-01] MEDS: insulin glargine (Lantus) pen - multi-dose SQ SCH ×2 (21:00→23:28)
[2022-02-01] MEDS ORDERED: gelatin sponge, absorbable (Gelfoam 100) sponge TP ONE (23:15)
[2022-02-02 01:16] VITALS: BP 112/68
[2022-02-02 05:00] VITALS: BP 130/53
[2022-02-02 06:00] VITALS: BP 129/73
--- NOTE | 2022-02-02 06:25 | NUR ---
Problems reprioritized. Patient report given, questions answered & plan of care reviewed with
[2022-02-02] MEDS ORDERED: gelatin sponge, absorbable (Gelfoam 12-7MM) sponge TP ONE ×2 (09:10→09:20)
[2022-02-02] MEDS: oxyCODONE IR 5mg (immed. release) tablet PO PRN (10:49)
[2022-02-02] MEDS: FLUoxetine 20mg capsule PO SCH (10:49)
[2022-02-02] MEDS: ticagrelor 90mg tablet PO SCH (10:49)
[2022-02-02] MEDS: losartan 50mg tablet PO SCH (10:50)
[2022-02-02] MEDS: pantoprazole 40mg Tablet.DR PO SCH (10:50)
[2022-02-02] MEDS: calcium acetate 667mg (PhosLO) capsule PO SCH (10:50)
[2022-02-02] MEDS: carVEDilol 3.125mg tablet PO SCH (10:51)
[2022-02-02] MEDS: topiramate 25mg tablet PO SCH (10:51)
[2022-02-02] MEDS: cyclobenzaprine 10mg tablet PO SCH (10:51)
[2022-02-02] MEDS: HYDROcodone/acetaminophen 10/325mg tab PO PRN (12:24)
--- NOTE | 2022-02-02 12:50 | NUR ---
Pt discharged home with current instructions. Escorted to car via WC by ADELE
[2022-02-03] MEDS ORDERED: heparin 1,000 units/ml 10ml inj HE ONE (08:00)
[2022-02-03] MEDS ORDERED: normal saline 1000ml 100 ML IV PRN (08:00)
--- NOTE | 2022-02-09 09:43 | NUR ---
Case Management DC follow up:Spoke with Patient via telephone.S/P: Patient Reports:Denies: Acute/continuous chest pain, emergent SOB, resp distress,dyspnea, N/V, hematemesis, weakness, vertigo, syncope episodes, orthostatic hypotension, dysuria, verbalizes she still makes some urine; however, denies hematuria.Denies: abdominal pain/distention, hematochezia, melena, unexplained bruising, bleeding, fever, chills. Denies bleeding, or oozing at TDC site, signs of infection,warmth,redness, drainage.Verbalizes understanding of new Rx:, why prescribed ; continues/resumes current Rx as ordered.Verbalizes compliance with aftercare.Verbalizes understanding of s/s that warrant 04-09/ER visit for further evaluation.Verbalizes she has seen her PCP, and is scheduled to see 02/14/22. Verbalizes she has resumed dialysis without incident.Verbalizes she was afraid she might while in the hospital.Verbalizes her dayshift nurse, Waleska SALCIDO ,was ignoring her needs and also the needs of her roommate.Verbalizes the nurse would make statements regarding her own personal issues; such as she took too much Benadryl the night before, she drank too much beer , and passed out in her car.Verbalized her nurse continued with inappropriate information including comments about mistakes made by a unnamed physician in the hospital.Verbalized the nurse ignored her complaint of "burning at her IV site" .Verbalizes after her arm became swollen, with blisters, the IV was finally discontinued . Verbalized she was afraid to complain about her nurse for fear of retaliation.Verbalizes after discharge she spoke with the Director Stuart Barron regarding the problems with her nurse Waleska SALCIDO.I told Patient at this time ,that no matter what facility she chooses to use, she has the right to request a different nurse to be assigned if there is any discomfort with the care.Verbalizes she wants to call administration ; encouraged her to do so at this time. Needs met, questions/concerns addressed at DC. Further questions/concerns regarding recent hospital stay and/or DC status addressed at this time.
== END 2022-02-02 12:45 | disposition home or self-care (01) | DRG 280 ==
LOC: ER 12:33 → ED HOLD 21:19 → PCU 3S 22:10
PROVIDERS: ADMIT Internal Medicine; ATTEND Internal Medicine
PROC: 5A1D70Z Performance of Urinary Filtration, Intermittent, Less than 6 Hours Per Day (ICD-10-PCS; 2022-01-28)
PROC: 5A1D70Z Performance of Urinary Filtration, Intermittent, Less than 6 Hours Per Day (ICD-10-PCS; 2022-01-30)
PROC: 0JH63XZ Insertion of Tunneled Vascular Access Device into Chest Subcutaneous Tissue and Fascia, Percutaneous Approach (ICD-10-PCS; principal; 2022-02-01)
PROC: B5131ZZ Fluoroscopy of Right Jugular Veins using Low Osmolar Contrast (ICD-10-PCS; 2022-02-01)
PROC: 02H633Z Insertion of Infusion Device into Right Atrium, Percutaneous Approach (ICD-10-PCS; 2022-02-01)
PROC: B548ZZA Ultrasonography of Superior Vena Cava, Guidance (ICD-10-PCS; 2022-02-01)
PROC: B5181ZA Fluoroscopy of Superior Vena Cava using Low Osmolar Contrast, Guidance (ICD-10-PCS; 2022-02-01)
PROC: 5A1D70Z Performance of Urinary Filtration, Intermittent, Less than 6 Hours Per Day (ICD-10-PCS; 2022-02-01)
DX: I95.3 Hypotension of hemodialysis (principal); N18.6 End stage renal disease; I21.4 Non-ST elevation (NSTEMI) myocardial infarction; T82.838A Hemorrhage due to vascular prosthetic devices, implants and grafts, initial encounter; I13.2 Hypertensive heart and chronic kidney disease with heart failure and with stage 5 chronic kidney disease, or end stage renal disease; I50.22 Chronic systolic (congestive) heart failure; I82.C11 Acute embolism and thrombosis of right internal jugular vein; K59.00 Constipation, unspecified; Y84.1 Kidney dialysis as the cause of abnormal reaction of the patient, or of later complication, without mention of misadventure at the time of the procedure; D63.8 Anemia in other chronic diseases classified elsewhere; E87.5 Hyperkalemia; E03.9 Hypothyroidism, unspecified; E10.22 Type 1 diabetes mellitus with diabetic chronic kidney disease; R16.0 Hepatomegaly, not elsewhere classified; N20.0 Calculus of kidney; Y92.230 Patient room in hospital as the place of occurrence of the external cause; E10.319 Type 1 diabetes mellitus with unspecified diabetic retinopathy without macular edema; E78.5 Hyperlipidemia, unspecified; I25.119 Atherosclerotic heart disease of native coronary artery with unspecified angina pectoris; Z99.2 Dependence on renal dialysis; I25.2 Old myocardial infarction; Z79.01 Long term (current) use of anticoagulants; Z83.3 Family history of diabetes mellitus; Z90.710 Acquired absence of both cervix and uterus; Z95.5 Presence of coronary angioplasty implant and graft; Z88.8 Allergy status to other drugs, medicaments and biological substances; Z79.899 Other long term (current) drug therapy; Z79.4 Long term (current) use of insulin
CPT/HCPCS: 36005; 36415; 36558; 71045; 75820; 76700; 76937; 77001; 80053; 82248; 82607; 82728; 82948; 83540; 83550; 83735; 83880; 84132; 84484; 85008; 85025; 85610; 85651; 85730; 86885; 86900; 86901; 86920; 87081; 93005; 93308; 99152; 99153; 99285; A4615; A4620; A6213; A6253; A6258; A6402; A6449; A6455; A9270; C1769; C1894; G0257; G0378; J1200; J1250; J1644; J1815; J2250; J2405; J2597; J2930; J3010; J3490; J7030; J7040; Q4081

== ENCOUNTER 2022-02-18 01:47 | Inpatient (IN) | payer MEDICARE, MEDICAID ==
[~2022-02-18] VITALS: Ht 152.4 cm; Wt 60.4 kg
[~2022-02-18 01:47] MED LIST changes: -APIX5TAB3 PO; -ASPI-920 PO; -ATOR40TA72 PO; -FLUO20CA39 PO; +FLUO40CA PO; -FOSI20TA97 PO; -FURO-149 PO; +FURO80TA3 PO; -INSU100V46 SQ; +LORA10TA7 PO; -LOSA50TA64 PO; +METO50TA17 PO; +NOVLG; +ONDA4TAB12 PO; -ONDA4TAB6 PO; +PROM12.512 PO; -TICA90TA PO; +TICA90TA2 PO; +TIZA-189 PO; -TRAM50TA2 PO
[2022-02-18 02:59] LABS: BASOPHILS # (AUTO) 0.1 X10'3 (0-0.2); BASOPHILS % (AUTO) 0.5 % (0-1); EOSINOPHILS # (AUTO) 0.3 X10'3 (0-0.9); EOSINOPHILS % (AUTO) 3.1 % (0-6); HEMOGLOBIN 10.4 g/dl (12.0-16.0); LYMPHOCYTES # (AUTO) 0.4 X10'3 (1.1-4.8); LYMPHOCYTES % (AUTO) 3.5 % (21-51); MEAN CORPUSCULAR HEMOGLOBIN 27.7 PG (27.0-31.0); MEAN CORPUSCULAR HGB CONC 31.4 g/dL (33.0-36.5); MEAN CORPUSCULAR VOLUME 88.2 FL (78-98); MEAN PLATELET VOLUME 9.5 FL (7.4-10.4); MONOCYTES # (AUTO) 0.8 X10'3 (0-0.9); MONOCYTES % (AUTO) 7.1 % (2-12); NEUTROPHILS # (AUTO) 9.4 X10'3 (1.8-7.7); NEUTROPHILS % (AUTO) 85.8 % (42-75); PLATELET COUNT 250 X10'3 (140-440); RED BLOOD COUNT 3.75 X10'6 (4.20-5.60); RED CELL DISTRIBUTION WIDTH 19.5 % (11.5-14.5); WHITE BLOOD COUNT 10.9 X10'3 (4.5-11.0)
[2022-02-18 03:05] LABS: HCG SERUM QL NEGATIVE
[2022-02-18 03:13] LABS: ALANINE AMINOTRANSFERASE 34 U/L (12-78); ALBUMIN 3.5 G/DL (3.4-5.0); ALBUMIN/GLOBULIN RATIO 0.7 (1.1-1.5); ALKALINE PHOSPHATASE 195 IU/L (46-116); ANION GAP 5 (8-16); ASPARTATE AMINO TRANSFERASE 24 U/L (10-37); BILIRUBIN,TOTAL 0.8 MG/DL (0.1-1.0); BLOOD UREA NITROGEN 29 MG/DL (7-18); BUN/CREATININE RATIO 7.1 (6.6-38.0); CALCIUM 8.4 MG/DL (8.5-10.1); CHLORIDE 99 MMOL/L (99-107); CREATININE 4.08 MG/DL (0.40-0.90); GLUCOSE 160 MG/DL (70-104); POTASSIUM 5.2 MMOL/L (3.5-5.1); SODIUM 137 MMOL/L (135-145); TOTAL CARBON DIOXIDE 33.3 MMOL/L (24-32); TOTAL PROTEIN 8.2 G/DL (6.4-8.2); eGFR 12 ML/MIN
[2022-02-18 03:17] LABS: D-DIMER 8.53 MG/L FEU (0-0.50)
[2022-02-18] MEDS ORDERED: heparin 25,000 UNIT/250ml bag 250 ML IV SCH (04:00)
[2022-02-18] MEDS ORDERED: heparin 10,000 units/1 ML INJ IV ONE (04:00)
[2022-02-18] MEDS ORDERED: ondansetron/PF 4mg/2ml inj IV ONE (04:25)
[2022-02-18] MEDS ORDERED: oxyCODONE SR 10mg (sust. release) tab PO ONE (04:50)
[2022-02-18] MEDS ORDERED: magnesium hydroxide 30ml (MOM) UD suspension PO PRN (04:55)
[2022-02-18] MEDS ORDERED: PERFLUTREN PROTEIN-A MICROSPHR (Optison) 0.22 MG/ML 3ML VIAL IV PRN (04:55)
[2022-02-18] MEDS ORDERED: mag hydrox/Alum hydrox/simeth 30ml oral suspension PO PRN (04:55)
[2022-02-18] MEDS ORDERED: acetaminophen 325mg tablet PO PRN (04:55)
[2022-02-18] MEDS ORDERED: glucagon, human recombinant 1mg kit SUBCUT PRN (05:00)
[2022-02-18] MEDS ORDERED: MESSAGE TO PHARMACY PO ONE (05:00)
[2022-02-18] MEDS ORDERED: dextrose 50%-water 50ml dispensing syringe IV PRN ×2 (05:00)
[2022-02-18] MEDS ORDERED: DEXTROSE 15 GM of carb/4 tabs (each vial/BOTTLE has 4 tablets) PO PRN ×2 (05:00)
[2022-02-18 05:27] LABS: PLATELET ESTIMATE NORMAL
[2022-02-18 05:28] LABS: ANISOCYTOSIS 2+
[2022-02-18 05:29] LABS: TARGET CELLS 1+
[2022-02-18] MEDS ORDERED: proMETHazine 25mg tablet PO PRN (06:00)
[2022-02-18] MEDS ORDERED: oxyCODONE IR 5mg (immed. release) tablet PO PRN (06:00)
[2022-02-18] MEDS ORDERED: tizanidine 4mg tablet PO PRN (06:00)
[2022-02-18] MEDS ORDERED: ondansetron 4mg rapidly disintigrating tab PO PRN (06:00)
[2022-02-18] MEDS ORDERED: loratadine 10mg tablet PO PRN (06:00)
[2022-02-18 06:49] LABS: APTT 28 SECONDS (22-32)
[2022-02-18] MEDS: ondansetron/PF 4mg/2ml inj IV PRN (07:01)
[2022-02-18] MEDS ORDERED: normal saline 1000ml 250 ML IV PRN (07:05)
[2022-02-18] MEDS ORDERED: EPOETIN ALFA-EPBX 20,000 UNIT/ML 1 ML MDV IV ONE (07:05)
[2022-02-18] MEDS ORDERED: heparin 1,000unit/ml 10ml vial 10 ML IV ONE (07:05)
[2022-02-18] MEDS ORDERED: heparin 1,000 units/ml 10ml inj HE ONE ×2 (07:10)
[2022-02-18] MEDS: furosemide 40mg tablet PO SCH ×2 (07:54→20:32)
[2022-02-18] MEDS: calcium acetate 667mg (PhosLO) capsule PO SCH ×3 (07:55→19:06)
[2022-02-18] MEDS: pantoprazole 40mg Tablet.DR PO SCH (07:55)
[2022-02-18] MEDS: FLUoxetine 20mg capsule PO SCH (07:55)
[2022-02-18] MEDS: ticagrelor 90mg tablet PO SCH ×2 (07:56→20:32)
[2022-02-18] MEDS: cyclobenzaprine 10mg tablet PO SCH ×2 (07:56→20:31)
[2022-02-18] MEDS: docusate sod 100mg capsule PO SCH ×3 (07:57→20:32)
[2022-02-18] MEDS ORDERED: topiramate 25mg tablet PO SCH (08:00)
[2022-02-18] MEDS ORDERED: ticagrelor 90mg tablet PO SCH (08:00)
[2022-02-18] MEDS: topiramate 25mg tablet PO SCH ×2 (08:10→20:32)
[2022-02-18] MEDS: metoprolol tartrate 50mg tablet PO SCH ×2 (08:11→20:31)
[2022-02-18 09:09] LABS: HEMOGLOBIN A1C 5.1 % (4.5-6.2)
--- NOTE | 2022-02-18 09:40 | NUR ---
ECHO IS AT BEDSIDE. PT'S COVID TEST CAME BACK POSITIVE, PT GIVEN N95 AND ISOLATION CART PLACED OUTSIDE OF ROOM. PT ASKING FOR STRONGER PAIN MEDICATION. DR CHAWLA PAGED TO NOTIFY
[2022-02-18] MEDS: oxyCODONE IR 5mg (immed. release) tablet PO PRN ×3 (10:35→21:38)
--- NOTE | 2022-02-18 10:42 | NUR ---
Oxy given for c/o constant generalized pain. Will continue to monitor
--- NOTE | 2022-02-18 10:55 | NUR ---
called PCU for report. Rn will call me back cos "they are in a code". ED charge - Prisca made aware
--- NOTE | 2022-02-18 11:34 | NUR ---
Report given to Mariama Camarena rn
--- NOTE | 2022-02-18 11:57 | NUR ---
Pt needs a Iso -ve pressure room, Called report to ortho floor and report given to Kwan shi.
[2022-02-18 12:48] LABS: APTT 26 SECONDS (22-32)
--- NOTE | 2022-02-18 12:57 | NUR ---
Patient awake,alert and orientedx4. On 2lnc, no form of distress noted. VSS. Report given and patient transferred to 4018 via wheelchair
[2022-02-18 13:30] VITALS: BP 162/75
--- NOTE | 2022-02-18 13:30 | NUR ---
Pt transferred from ER to 4018 via w/c to bed. Pt awake and alert. Pt anxious about dx. All questions/concerns addressed. VSS. Pt reported severe LINDER. Oxy IR recently given in ER for LINDER.
[2022-02-18] MEDS ORDERED: diphenhydrAMINE 50 mg/ml inj IV ONE (13:55)
[2022-02-18 14:00] VITALS: BP 145/79
--- NOTE | 2022-02-18 14:00 | NUR ---
Pt transferred to Nuc. Med. via w/c. Heparin gtt turned off for procedure.
--- NOTE | 2022-02-18 14:30 | NUR ---
Pt transferred back to rm 4018 via w/c to bed.
[2022-02-18] MEDS: ibuprofen tablet 400 MG TABLET PO SCH ×2 (14:57→20:32)
[2022-02-18] MEDS: heparin 10,000 units/1 ML INJ IV PRN (15:34)
[2022-02-18 18:00] VITALS: BP 135/71
[2022-02-18] MEDS: dexamethasone 4mg/ml inj IV SCH (20:31)
[2022-02-18 22:00] VITALS: BP 151/75
--- NOTE | 2022-02-19 | NUR ---
HEPARIN DRIP Drip off for 2 hours. Lab unable to draw pt's ptt. Dr. Bird called and made aware. Dr. Bird said to change the rate to 600 units/hour and the redraw ptt in 4-5 hours. PTT set to be drawn at 0500. frq monitoring
[2022-02-19 02:00] VITALS: BP 161/86
[2022-02-19] MEDS: dexamethasone 4mg/ml inj IV SCH ×4 (02:19→22:17)
[2022-02-19] MEDS: ibuprofen tablet 400 MG TABLET PO SCH ×4 (02:19→22:17)
[2022-02-19] MEDS: oxyCODONE IR 5mg (immed. release) tablet PO PRN ×3 (02:20→17:16)
--- NOTE | 2022-02-19 06:30 | NUR ---
Patient in room ORTHO 4018. I have received report from Radha and had the opportunity to ask questions and assume patient care.
--- NOTE | 2022-02-19 06:34 | NUR ---
Problems reprioritized. Patient report given, questions answered & plan of care reviewed with Amelia SALCIDO.
[2022-02-19 06:37] VITALS: BP 160/88
--- NOTE | 2022-02-19 06:54 | NUR ---
DM consult: Pt w/ hx of DM A1c 5.1 per EMR. Well controlled and appropriate DM ed not indicated at this time. Addendum: 02/19/22 at [address] Amended: Links added.
--- NOTE | 2022-02-19 06:56 | NUR ---
At approx. 06:05 this am pt pulled IV out, prior to my receiving report. NOC nurse spoke with nash munroe to determine course of action as patient is a difficult stick and on a heparin drip. JOSE A MD compressor station engineer was advised. No new orders received.
[2022-02-19 07:07] LABS: BASOPHILS % (AUTO) 0.4 % (0-1); EOSINOPHILS % (AUTO) 0 % (0-6); HEMATOCRIT 31.6 % (35.0-45.0); HEMOGLOBIN 9.8 g/dl (12.0-16.0); LYMPHOCYTES # (AUTO) 0.3 X10'3 (1.1-4.8); LYMPHOCYTES % (AUTO) 9.7 % (21-51); MEAN CORPUSCULAR HEMOGLOBIN 27.8 PG (27.0-31.0); MEAN CORPUSCULAR HGB CONC 30.9 g/dL (33.0-36.5); MEAN PLATELET VOLUME 10.1 FL (7.4-10.4); MONOCYTES # (AUTO) 0.3 X10'3 (0-0.9); MONOCYTES % (AUTO) 7.3 % (2-12); NEUTROPHILS # (AUTO) 2.9 X10'3 (1.8-7.7); NEUTROPHILS % (AUTO) 82.6 % (42-75); PLATELET COUNT 174 X10'3 (140-440); RED BLOOD COUNT 3.51 X10'6 (4.20-5.60); RED CELL DISTRIBUTION WIDTH 19.8 % (11.5-14.5); WHITE BLOOD COUNT 3.5 X10'3 (4.5-11.0)
--- NOTE | 2022-02-19 07:27 | NUR ---
Dr. Alejandro, Ms. Au in rm 4018, pulled IV out this am. Pt is on a heparin drip. Determining course of action for new IV. TITA Cisneros, ortho 3610
[2022-02-19 07:30] LABS: ANISOCYTOSIS 2+; HYPOCHROMASIA 1+; PLATELET ESTIMATE NORMAL; POIKILOCYTOSIS FEW; TARGET CELLS FEW
[2022-02-19 07:32] LABS: ALANINE AMINOTRANSFERASE 35 U/L (12-78); ALBUMIN 3.3 G/DL (3.4-5.0); ALBUMIN/GLOBULIN RATIO 0.7 (1.1-1.5); ALKALINE PHOSPHATASE 186 IU/L (46-116); ANION GAP 12 (8-16); ASPARTATE AMINO TRANSFERASE 31 U/L (10-37); BILIRUBIN,TOTAL 0.7 MG/DL (0.1-1.0); BLOOD UREA NITROGEN 24 MG/DL (7-18); BUN/CREATININE RATIO 7.4 (6.6-38.0); CALCIUM 8.4 MG/DL (8.5-10.1); CHLORIDE 99 MMOL/L (99-107); CREATININE 3.25 MG/DL (0.40-0.90); GLUCOSE 304 MG/DL (70-104); POTASSIUM 4.6 MMOL/L (3.5-5.1); SODIUM 139 MMOL/L (135-145); TOTAL CARBON DIOXIDE 28.5 MMOL/L (24-32); TOTAL PROTEIN 7.9 G/DL (6.4-8.2); eGFR 15 ML/MIN
[2022-02-19] MEDS: docusate sod 100mg capsule PO SCH ×3 (08:49→22:17)
[2022-02-19] MEDS: ticagrelor 90mg tablet PO SCH ×2 (08:49→22:17)
[2022-02-19] MEDS: cyclobenzaprine 10mg tablet PO SCH ×2 (08:49→22:17)
[2022-02-19] MEDS: furosemide 40mg tablet PO SCH ×2 (08:50→22:18)
[2022-02-19] MEDS: calcium acetate 667mg (PhosLO) capsule PO SCH ×3 (08:53→18:49)
[2022-02-19] MEDS: metoprolol tartrate 50mg tablet PO SCH ×2 (08:53→22:18)
[2022-02-19] MEDS: pantoprazole 40mg Tablet.DR PO SCH (08:53)
[2022-02-19] MEDS: FLUoxetine 20mg capsule PO SCH (08:54)
[2022-02-19] MEDS: topiramate 25mg tablet PO SCH ×2 (08:54→22:17)
[2022-02-19] MEDS: insulin Lispro (HumaLOG) vial - multi-dose SQ SCH ×3 (09:02→18:49)
--- NOTE | 2022-02-19 09:18 | NUR ---
Per nutritional tool, patient was to have 12 units of insulin. Nutritional amount was 2 units and 9.88 units (rounded to 10) for correctional. BG was 367. Grams of carbs 24. Patient refused the 12 units and only accepted 5 units. 5 units were given.
[2022-02-19] MEDS: ondansetron/PF 4mg/2ml inj IV PRN (09:49)
[2022-02-19 10:00] VITALS: BP 180/95
[2022-02-19 14:00] VITALS: BP 159/91
[2022-02-19] MEDS: heparin 10,000 units/1 ML INJ IV PRN (15:17)
[2022-02-19 18:12] VITALS: BP 158/84
--- NOTE | 2022-02-19 18:30 | NUR ---
PATIENT REFUSING CORRECTIONAL DOSE OF INSULIN. AGREEABLE TO TAKING NUTRITIONAL DOSE.
--- NOTE | 2022-02-19 18:42 | NUR ---
Problems reprioritized. Patient report given, questions answered & plan of care reviewed with Leyla.
[2022-02-19 22:00] VITALS: BP 164/88
--- NOTE | 2022-02-19 22:05 | NUR ---
NOTIFIED DR. HAMMER THAT WE ARE UNABLE TO DRAW PATIENTS BLOOD FOR PTT AND HEPARIN GTT WILL BE STOPPED TONIGHT.
[2022-02-19] MEDS ORDERED: diphenhydrAMINE 25mg capsule PO PRN (22:15)
[2022-02-20] MEDS: dexamethasone 4mg/ml inj IV SCH ×2 (03:16→09:41)
[2022-02-20] MEDS: ibuprofen tablet 400 MG TABLET PO SCH ×2 (03:16→09:38)
[2022-02-20] MEDS: oxyCODONE IR 5mg (immed. release) tablet PO PRN (03:52)
[2022-02-20 05:23] VITALS: BP 161/67
[2022-02-20 08:15] LABS: ALANINE AMINOTRANSFERASE 24 U/L (12-78); ALBUMIN 2.6 G/DL (3.4-5.0); ALBUMIN/GLOBULIN RATIO 0.6 (1.1-1.5); ALKALINE PHOSPHATASE 162 IU/L (46-116); ANION GAP 10 (8-16); ASPARTATE AMINO TRANSFERASE 19 U/L (10-37); BILIRUBIN,TOTAL 0.5 MG/DL (0.1-1.0); BLOOD UREA NITROGEN 55 MG/DL (7-18); CALCIUM 8.1 MG/DL (8.5-10.1); CHLORIDE 100 MMOL/L (99-107); CREATININE 4.59 MG/DL (0.40-0.90); GLUCOSE 288 MG/DL (70-104); POTASSIUM 4.7 MMOL/L (3.5-5.1); SODIUM 137 MMOL/L (135-145); TOTAL CARBON DIOXIDE 27.5 MMOL/L (24-32); TOTAL PROTEIN 6.7 G/DL (6.4-8.2); eGFR 10 ML/MIN
[2022-02-20 08:17] LABS: BASOPHILS % (AUTO) 0.5 % (0-1); EOSINOPHILS % (AUTO) 0 % (0-6); HEMATOCRIT 32.6 % (35.0-45.0); HEMOGLOBIN 10.1 g/dl (12.0-16.0); LYMPHOCYTES # (AUTO) 1.2 X10'3 (1.1-4.8); LYMPHOCYTES % (AUTO) 17.2 % (21-51); MEAN CORPUSCULAR HEMOGLOBIN 27.3 PG (27.0-31.0); MEAN CORPUSCULAR HGB CONC 31.1 g/dL (33.0-36.5); MEAN CORPUSCULAR VOLUME 87.7 FL (78-98); MEAN PLATELET VOLUME 10.5 FL (7.4-10.4); MONOCYTES # (AUTO) 0.5 X10'3 (0-0.9); MONOCYTES % (AUTO) 6.5 % (2-12); NEUTROPHILS # (AUTO) 5.3 X10'3 (1.8-7.7); NEUTROPHILS % (AUTO) 75.8 % (42-75); PLATELET COUNT 209 X10'3 (140-440); RED BLOOD COUNT 3.72 X10'6 (4.20-5.60); RED CELL DISTRIBUTION WIDTH 19.2 % (11.5-14.5)
[2022-02-20] MEDS: insulin Lispro (HumaLOG) vial - multi-dose SQ SCH (09:29)
[2022-02-20] MEDS: furosemide 40mg tablet PO SCH (09:38)
[2022-02-20] MEDS: pantoprazole 40mg Tablet.DR PO SCH (09:38)
[2022-02-20] MEDS: calcium acetate 667mg (PhosLO) capsule PO SCH (09:40)
[2022-02-20] MEDS: topiramate 25mg tablet PO SCH (09:40)
[2022-02-20] MEDS: FLUoxetine 20mg capsule PO SCH (09:40)
[2022-02-20] MEDS: cyclobenzaprine 10mg tablet PO SCH (09:40)
[2022-02-20] MEDS: docusate sod 100mg capsule PO SCH (09:40)
[2022-02-20] MEDS: ticagrelor 90mg tablet PO SCH (09:41)
[2022-02-20] MEDS: metoprolol tartrate 50mg tablet PO SCH (09:42)
[2022-02-21 06:22] LABS: HBSAG SCREEN Negative (Negative)
== END 2022-02-20 12:35 | disposition home or self-care (01) | DRG 205 ==
LOC: ER 01:47 → UNDOADMIN 04:55 → ED HOLD 04:55 → ORTHO 4S 12:52
PROVIDERS: ADMIT Internal Medicine; ATTEND Internal Medicine
PROC: 5A1D70Z Performance of Urinary Filtration, Intermittent, Less than 6 Hours Per Day (ICD-10-PCS; principal; 2022-02-18)
PROC: CB121ZZ Planar Nuclear Medicine Imaging of Lungs and Bronchi using Technetium 99m (Tc-99m) (ICD-10-PCS; 2022-02-19)
DX: M94.0 Chondrocostal junction syndrome [Tietze] (principal); I50.23 Acute on chronic systolic (congestive) heart failure; U07.1 COVID-19; N18.6 End stage renal disease; I13.2 Hypertensive heart and chronic kidney disease with heart failure and with stage 5 chronic kidney disease, or end stage renal disease; F32.A Depression, unspecified; K21.9 Gastro-esophageal reflux disease without esophagitis; E11.22 Type 2 diabetes mellitus with diabetic chronic kidney disease; H54.8 Legal blindness, as defined in USA; I25.10 Atherosclerotic heart disease of native coronary artery without angina pectoris; Z83.3 Family history of diabetes mellitus; Z86.718 Personal history of other venous thrombosis and embolism; Z95.5 Presence of coronary angioplasty implant and graft; Z88.8 Allergy status to other drugs, medicaments and biological substances; Z79.899 Other long term (current) drug therapy; Z79.4 Long term (current) use of insulin
CPT/HCPCS: 36415; 71045; 78580; 80053; 82948; 83036; 83880; 84484; 84703; 85008; 85025; 85379; 85610; 85730; 87081; 87340; 93005; 93308; 99285; A9540; G0257; G0378; J1100; J1200; J1644; J1815; J2405; J7030; Q4081

== ENCOUNTER 2022-04-15 11:13 | Emergency (ER) | payer MEDICARE, MEDICAID ==
[~2022-04-15] VITALS: Ht 152.4 cm; Wt 56.0 kg
[2022-04-15 11:25] VITALS: BP 153/74
--- NOTE | 2022-04-15 11:38 | NUR ---
bs 44 45g oral glucose 244/144 diaphoretic, altered PER CUSTOMER SUCCESS ASSOCIATE REPORT
[2022-04-15 12:56] LABS: ALANINE AMINOTRANSFERASE 21 U/L (12-78); ALBUMIN 3.6 G/DL (3.4-5.0); ALBUMIN/GLOBULIN RATIO 0.8 (1.1-1.5); ALKALINE PHOSPHATASE 182 IU/L (46-116); ANION GAP 11 (8-16); ASPARTATE AMINO TRANSFERASE 17 U/L (10-37); BILIRUBIN,TOTAL 0.3 MG/DL (0.1-1.0); BLOOD UREA NITROGEN 52 MG/DL (7-18); BUN/CREATININE RATIO 8.5 (6.6-38.0); CALCIUM 9.2 MG/DL (8.5-10.1); CHLORIDE 95 MMOL/L (99-107); CREATININE 6.13 MG/DL (0.40-0.90); GLUCOSE 165 MG/DL (70-104); POTASSIUM 4.6 MMOL/L (3.5-5.1); SODIUM 136 MMOL/L (135-145); TOTAL CARBON DIOXIDE 30.3 MMOL/L (24-32); TOTAL PROTEIN 8.2 G/DL (6.4-8.2); eGFR 7 ML/MIN
[2022-04-15 12:57] LABS: BASOPHILS # (AUTO) 0.1 X10'3 (0-0.2); BASOPHILS % (AUTO) 0.5 % (0-1); EOSINOPHILS # (AUTO) 0.4 X10'3 (0-0.9); EOSINOPHILS % (AUTO) 3.8 % (0-6); HEMATOCRIT 46.6 % (35.0-45.0); HEMOGLOBIN 14.7 g/dl (12.0-16.0); LYMPHOCYTES # (AUTO) 0.7 X10'3 (1.1-4.8); LYMPHOCYTES % (AUTO) 6.5 % (21-51); MEAN CORPUSCULAR HEMOGLOBIN 27.5 PG (27.0-31.0); MEAN CORPUSCULAR HGB CONC 31.5 g/dL (33.0-36.5); MEAN CORPUSCULAR VOLUME 87.3 FL (78-98); MEAN PLATELET VOLUME 9.5 FL (7.4-10.4); MONOCYTES # (AUTO) 0.6 X10'3 (0-0.9); MONOCYTES % (AUTO) 5.4 % (2-12); NEUTROPHILS # (AUTO) 9.4 X10'3 (1.8-7.7); NEUTROPHILS % (AUTO) 83.8 % (42-75); PLATELET COUNT 275 X10'3 (140-440); RED BLOOD COUNT 5.33 X10'6 (4.20-5.60); RED CELL DISTRIBUTION WIDTH 19.5 % (11.5-14.5); WHITE BLOOD COUNT 11.2 X10'3 (4.5-11.0)
--- NOTE | 2022-04-15 13:39 | NUR ---
CALLED [facility]. PT WILL DC FROM ER AND GO TO [facility] FOR DIALYSIS TREATMENT.
== END 2022-04-15 14:13 | disposition home or self-care (01) ==
LOC: ER 11:13
DX: E11.649 Type 2 diabetes mellitus with hypoglycemia without coma (principal); R41.0 Disorientation, unspecified; I11.0 Hypertensive heart disease with heart failure; I50.9 Heart failure, unspecified; Z98.890 Other specified postprocedural states; Z88.8 Allergy status to other drugs, medicaments and biological substances; Z88.1 Allergy status to other antibiotic agents; Z79.4 Long term (current) use of insulin; Z79.899 Other long term (current) drug therapy
CPT/HCPCS: 80053; 82948; 85025; 99283

== ENCOUNTER 2024-10-24 09:18 | Outpatient (CLI) | payer MEDICARE, MEDICAID ==
[~2024-10-24 09:18] MED LIST changes: +ONDA-243 PO; -ONDA4TAB12 PO
== END 2024-10-24 23:59 | disposition home or self-care (01) ==
LOC: MRI02 09:18
PROVIDERS: ATTEND Nurse Practitioner Family
DX: I67.82 Cerebral ischemia (principal); G44.321 Chronic post-traumatic headache, intractable
CPT/HCPCS: 70551

== ENCOUNTER 2024-10-29 10:38 | Outpatient (CLI) | payer MEDICARE, MEDICAID ==
[~2024-10-29 10:38] MED LIST changes: +iohexol 300mg/ml 100ml inj. ONE
== END 2024-10-29 23:59 | disposition home or self-care (01) ==
LOC: RAD 10:38
PROVIDERS: ATTEND Nurse Practitioner Family
DX: S21.109A Unspecified open wound of unspecified front wall of thorax without penetration into thoracic cavity, initial encounter (principal); N20.0 Calculus of kidney; K80.20 Calculus of gallbladder without cholecystitis without obstruction; X58.XXXA Exposure to other specified factors, initial encounter; Y93.89 Activity, other specified; Y92.89 Other specified places as the place of occurrence of the external cause; Y99.8 Other external cause status
CPT/HCPCS: 71250; Q9967